=== PATIENT | male | born 1945 | race Caucasian/White ===

== ENCOUNTER 2017-08-14 11:47 | Emergency (ER) | payer MEDICARE, OTHER ==
[2017-08-14 12:06] VITALS: RESP 18
--- NOTE | 2017-08-14 12:18 | ED ---
General Adult HPI - General Chief complaint: Fall Stated complaint: fall down step apx 5 foot Time Seen by Provider: 08/14/17 12:11 Source: patient, RN notes reviewed Mode of arrival: ambulatory Limitations: no limitations - History of Present Illness Initial comments: Patient is a pleasant 72-year-old male presenting to the emergency Department with low back pain. Patient fell down a proximal he 5 steps onto concrete last night. Patient landed on his lower back and buttocks. Patient has discomfort more the lower back however also with the buttocks with sitting. Patient is unclear whether or not he may have struck his head. No loss of consciousness. No nausea or vomiting or confusion or neurological problems. No neck or upper back pain. No chest pain or dyspnea. No abdominal pain. Patient did strike his right thumb however states there is only mild discomfort. - Related Data Home Medications Medication Instructions Recorded Confirmed Atorvastatin [Lipitor] 80 mg PO HS 11/28/14 08/14/17 Enalapril Maleate [Vasotec] 2.5 mg PO DAILY 11/28/14 08/14/17 Multivitamins, Thera [Multivitamin] 1 tab PO DAILY 11/28/14 08/14/17 [place]-3 Fatty Acids/Fish Oil [Fish 1 cap PO DAILY 06/01/15 08/14/17 Oil 1,000 mg Softgel] Albuterol Nebulized [Ventolin 2.5 mg INHALATION RT-Q6H PRN 08/14/17 08/14/17 Nebulized] Aspirin [Adult Low Dose Aspirin EC] 81 mg PO DAILY 08/14/17 08/14/17 Ipratropium Nebulized [Atrovent 0.5 mg INHALATION RT-Q6H PRN 08/14/17 08/14/17 Nebulized] Levothyroxine Sodium [Synthroid] 88 mcg PO DAILY 08/14/17 08/14/17 Previous Rx's Medication Instructions Recorded Acetaminophen-Codeine 300-30mg 2 each PO Q6H PRN #15 tablet 08/14/17 [Tylenol #3] Allergies Allergy/AdvReac Type Severity Reaction Status Date / Time Sulfa (Sulfonamide Allergy Rash/Hives Verified 08/14/17 12:43 Antibiotics) Review of Systems ROS Statement: Those systems with pertinent positive or pertinent negative responses have been documented in the HPI. ROS Other: All systems not noted in ROS Statement are negative. Constitutional: Denies: fever Eyes: Denies: eye pain ENT: Denies: ear pain Respiratory: Denies: cough, dyspnea Cardiovascular: Denies: chest pain Endocrine: Denies: fatigue Gastrointestinal: Denies: abdominal pain Genitourinary: Denies: dysuria Musculoskeletal: Reports: back pain Skin: Denies: rash Neurological: Denies: headache, weakness, numbness, paresthesias, confusion, abnormal gait Past Medical History Past Medical History: Coronary Artery Disease (CAD), Chest Pain / Angina, Hyperlipidemia, Hypertension, Myocardial Infarction ([place]) Additional Past Medical History / Comment(s): throat CA Last Myocardial Infarction Date:: 2001 History of Any Multi-Drug Resistant Organisms: None Reported Past Surgical History: Heart Catheterization With Stent, Orthopedic Surgery Additional Past Surgical History / Comment(s): cyst removal from back Past Anesthesia/Blood Transfusion Reactions: No Reported Reaction Date of Last Stent Placement:: 2001 Past Psychological History: No Psychological Hx Reported Smoking Status: Former smoker Past Alcohol Use History: None Reported Past Drug Use History: None Reported - Past Family History Father Family Medical History: Hypertension General Exam Limitations: no limitations General appearance: alert, in no apparent distress Head exam: Present: atraumatic, normocephalic Eye exam: Present: normal appearance, PERRL, EOMI ENT exam: Present: normal oropharynx Neck exam: Present: normal inspection Respiratory exam: Present: normal lung sounds bilaterally Cardiovascular Exam: Present: regular rate, normal rhythm GI/Abdominal exam: Present: soft. Absent: tenderness Extremities exam: Present: normal inspection, other (No tenderness to the right thumb region. Full range of motion. Good strength against resistance.). Absent: tenderness Back exam: Present: tenderness (Mild tenderness lower lumbar spine and left sacral region.) Neurological exam: Present: alert, CN II-XII intact. Absent: motor sensory deficit Expanded Motor strength exam: RUE: 5, LUE: 5, RLE: 5, LLE: 5 Eye Response: (4) open spontaneously Motor Response: (6) obeys commands Verbal Response: (5) oriented Psychiatric exam: Present: normal affect, normal mood Skin exam: Present: normal color Course Vital Signs 08/14/17 12:02 Temperature 97.1 F L Pulse Rate 91 Respiratory 18 Rate Blood Pressure 145/66 O2 Sat by Pulse 96 Oximetry Medical Decision Making - Medical Decision Making Patient and family updated. - Radiology Data Radiology results: report reviewed (Lumbar computed tomography scan shows stable L2 vertebral body fracture at the anterior superior endplate.) Disposition Clinical Impression: L2 vertebral fracture Disposition: HOME SELF-CARE Condition: Stable Instructions: Thoracolumbar Fracture (ED) Additional Instructions: Bed rest until back brace is on. Prescription written for back brace. Please follow-up tomorrow with Dr. Guo, number provided. Return for weakness, loss of sensation, loss of control of bowel or bladder, worsening symptoms or other concerns. Prescriptions: Acetaminophen-Codeine 300-30mg [Tylenol #3] 2 each PO Q6H PRN #15 tablet PRN Reason: Pain Referrals: Pedro Luis Holbrook MD [Primary Care Provider] - 1-2 days Time of Disposition: 13:29
--- NOTE | 2017-08-14 12:47 | CT ---
EXAMINATION TYPE: CT lumbar spine wo con DATE OF EXAM: 08/14/2017 COMPARISON: NONE HISTORY: Pain Unenhanced CT of the lumbar spine was performed. Bone and soft tissue window settings are submitted as well as coronal and sagittal reconstructions. L1-L2: Fracture of the anterior superior L2 vertebral segment mild in degree with mild comminution no marquise. The middle and posterior columns are intact. Normal disc space height. No disc herniation protr usion or central stenosis. No facet joint arthropathy. No evidence for foraminal encroachment. L2-L3: Normal disc space height. No disc herniation protrusion or central stenosis. No facet joint arthropathy. No evidence for foraminal encroachment. L3-L4: Normal disc space height. No disc herniation protrusion or central stenosis. No facet joint arthropathy. No evidence for foraminal encroachment. L4-L5: Moderate degenerative disc space narrowing. Moderate circumferential disc bulge. Hypertrophic change of the ligamentum flavum and facet joint arthropathy contribute to [id number] central st enosis. L5-S1: Normal disc space height. No disc herniation protrusion or central stenosis. No facet joint arthropathy. No evidence for foraminal encroachment. No paraspinal masses are identified. IMPRESSION: 1. Stable L2 vertebral body fracture at its anterior superior endplate. 2. L4-5 central stenosis.
[2017-08-14] MEDS ORDERED: ACET/COD 300 MG/30 MG STARTER PACK 6 TAB BTL PO STA (13:29)
[2017-08-14 13:41] VITALS: BP 148/70; PULSE 77; TEMP 98
== END 2017-08-14 13:41 | disposition home or self-care (01) ==
LOC: EC 11:47
DX: S32.029A Unspecified fracture of second lumbar vertebra, initial encounter for closed fracture (principal); I25.119 Atherosclerotic heart disease of native coronary artery with unspecified angina pectoris; E78.5 Hyperlipidemia, unspecified; I10 Essential (primary) hypertension; I25.2 Old myocardial infarction; Z85.850 Personal history of malignant neoplasm of thyroid; Z87.891 Personal history of nicotine dependence; Z79.82 Long term (current) use of aspirin; Z79.899 Other long term (current) drug therapy; Z88.2 Allergy status to sulfonamides; W10.9XXA Fall (on) (from) unspecified stairs and steps, initial encounter
CPT/HCPCS: 72131; 99283

== ENCOUNTER 2017-11-17 08:10 | Day surgery (SDC) | payer MEDICARE, OTHER ==
[2017-11-15 13:45] VITALS: BMI 30.1
[~2017-11-17 08:10] MED LIST: LACTATED RINGERS 1,000 ML IV SCH
[2017-11-17] MEDS ORDERED: LIDOCAINE 1% 20 ML VIAL (10MG/ML) FOR IV START INTRADERMA ONE (08:34)
[2017-11-17 08:43] VITALS: RESP 16; TEMP 98.4
[2017-11-17 08:54] LABS: Glucose,Whole Blood 122 mg/dL (75-99)
[2017-11-17] MEDS ORDERED: PROPOFOL 10 MG/ML 20 ML VIAL IV ONE (09:57)
[2017-11-17] MEDS ORDERED: LIDOCAINE 1% INJ 10MG/ML (20 ML MDV) ONE (09:57)
[2017-11-17 10:28] VITALS: PULSE 67
--- NOTE | 2017-11-17 10:28 | P.PCN ---
Date of Procedure: 11/17/17 Procedure(s) Performed: Procedure: Esophagogastroduodenoscopy and biopsy. Preoperative diagnosis: Dysphagia. Postoperative diagnosis: 1. Small sliding hiatal hernia with low-grade esophagitis but no obvious strictures. 2. Mild gastritis and duodenitis. 3. Biopsies obtained from the duodenum, antrum and esophagus. Preparation sedation: Was provided by anesthesia. Brief clinical history: The patient is a 72-year-old male with history of throat cancer for which he was treated with chemotherapy and radiation around 3 years ago. The patient has been complaining of difficulty swallowing since that time with no other alarm symptoms. This evaluation is to assess for strictures or other pathology. Procedure: With the patient on his left lateral decubitus position and after informed consent and adequate sedation, I passed the Olympus GIF H 190 video upper endoscope, without difficulty, through the cricopharyngeus down the esophagus. GE junction was around 40-41 cm from the incisors and there was a small sliding hiatal hernia. The esophagus showed couple short linear erosions distally consistent with LA grade A esophagitis but there were no strictures or Delgadillo's esophagus. The endoscope was then passed into the stomach which was insufflated with air and inspected in detail including the retroflex view in the cardia. There was some mottling and erythema in the antrum but no ulcers or erosions. Similar findings were seen in the duodenal bulb with pinpoint submucosal hemorrhages but no ulcers or erosions. Post bulbar area and descending duodenum appeared healthy. I obtained biopsies from the duodenum, antrum and esophagus then the endoscope was withdrawn. The patient tolerated the procedure well. Plan: The patient was reassured. Will await biopsy results. Consideration can be given for treatment for reflux and monitoring his difficulty swallowing. Additional workup for his dysphagia could include barium studies and motility studies depending on his course, especially if there is nutritional compromise. He will follow up with you as planned and would be happy to see in the office of his symptoms persist.
[2017-11-17 10:44] VITALS: BP 111/58
[2017-11-17 10:46] LABS: Glucose,Whole Blood 131 mg/dL (75-99)
== END 2017-11-17 11:25 | disposition home or self-care (01) ==
LOC: ORWHC2ENDO 08:10
DX: K29.50 Unspecified chronic gastritis without bleeding (principal); K44.9 Diaphragmatic hernia without obstruction or gangrene; K29.80 Duodenitis without bleeding; K20.9 Esophagitis, unspecified; E78.5 Hyperlipidemia, unspecified; I10 Essential (primary) hypertension; J45.909 Unspecified asthma, uncomplicated; E07.9 Disorder of thyroid, unspecified; E11.9 Type 2 diabetes mellitus without complications; Z79.899 Other long term (current) drug therapy; Z92.21 Personal history of antineoplastic chemotherapy; Z79.84 Long term (current) use of oral hypoglycemic drugs; Z79.82 Long term (current) use of aspirin; Z88.2 Allergy status to sulfonamides; Z85.89 Personal history of malignant neoplasm of other organs and systems
CPT/HCPCS: 88305; 43239; J2001; J2704

== ENCOUNTER → 2018-04-06 | Outpatient (CLI) | payer MEDICARE, OTHER ==
--- NOTE | 2018-04-06 08:46 | CT ---
EXAMINATION TYPE: CT chest w con DATE OF EXAM: 04/06/2018 COMPARISON: 12/10/2013 and PET/CT 08/20/2017 HISTORY: 73-year-old male Pneumonia, history of throat cancer TECHNIQUE: Contiguous axial scanning of the chest after the administration of 50 mL of Isovue 300. C oronal/sagittal reconstructions performed. CT DLP: 408.8mGycm. Automatic exposure control utilized for a dose reduction. FINDINGS: Heart normal size without pericardial effusion. Coronary vessel calcifications are present and are re markable for coronary artery disease. Prominent epicardial fat pad along the right heart margin. There is mild to moderate atherosclerotic arch calcifications and conventional arch vessel branching anatomy. Ectatic lower descending thoracic aorta 2.8 cm. Partially calcified 1 cm lower left cervical lymph node is unchanged from the patient's 08/20/2017 PET /CT. Otherwise, no thoracic lymphadenopathy seen. Mild central bronchial wall thickening. No consolidation or pleural effusion. The central airways cheryl ear patent. Tiny hiatal hernia. Multiple cysts in the liver, largest on the left measuring up to 4.9 cm. Superior endplate compression deformity is visualized at L2 which was no also noted on the patient's CT lumbar spine of 08/14/2017. No osseous destructive process. IMPRESSION: 1. Partially calcified 1 cm lower left cervical lymph node is unchanged from the patient's 08/20/2017 PET/CT compatible with site of treated disease. 2. Mild central bronchial wall thickening could represent bronchitis or asthma. No evidence for pneum onia.
== END | disposition home or self-care (01) ==
LOC: RADCTMAIN 06:39
PROVIDERS: ATTEND Internal Medicine Geriatric Medicine
DX: J98.09 Other diseases of bronchus, not elsewhere classified (principal)
CPT/HCPCS: 82565; 84520; 71260; 36415; Q9967

== ENCOUNTER → 2018-09-02 | Outpatient (CLI) | payer MEDICARE, OTHER ==
--- NOTE | 2018-09-03 15:14 | PE ---
EXAMINATION TYPE: PET CT fusion skull to thigh DATE OF EXAM: 09/02/2018 COMPARISON: Prior PET/CT August 20, 2017 and older studies back through December 21, 2014. Most recent c hest CT April 06, 2018 HISTORY: Head and neck throat cancer treated with chemotherapy and radiation in May 2015 TECHNIQUE: Following the intravenous administration of 12.09 mCi of F-18 FDG, whole body images are performed from the skull base to the midthigh. Images are reviewed on the computer in the coronal, a xial, and sagittal planes. Reconstructed rotating images are created on independent workstation and reviewed on the computer. A noncontrast CT is performed in conjunction with the PET scan. Dedicated PET/CT imaging of the neck is acquired. SCAN: Subsequent Scan FINDINGS: SKULL BASE AND NECK: No suspicious hypermetabolic uptake or abnormal enlarged lymph nodes are seen o n current study with particular attention to the left posterior cervical triangle at level of hyoid b one at study of original hypermetabolic adenopathy in 2014. There is stable residual calcified 9 mm m ass at level of left thyroid lobe axial image 70 consistent with treated disease extending from the p rior visualized enlarged hypermetabolic lymph node. There is marked interval improvement in the left greater than right masseter muscular uptake on current study. CHEST, MEDIASTINUM, AND HILAR REGION: No new areas of suspicious hypermetabolic uptake are identified . ABDOMEN AND PELVIS: No suspicious hypermetabolic uptake is seen. Prominent diffuse bowel uptake seen on current study. Normal excretion redemonstrated. OSSEOUS STRUCTURES: No suspicious hypermetabolic uptake is present. OTHER CT: Moderate multilevel degenerative changes are redemonstrated in the thoracolumbar and lumbosacral spin e. There is redemonstration of moderate to severe three-vessel coronary artery calcifications and/or laurence nts and moderate atheromatous changes of the thoracic aorta. Some bilateral gynecomastia is again see n. Stable small hiatal hernia is present. Mild to moderate fat replaced pancreatic atrophy is redemonstr ated. Small duodenal diverticulum is redemonstrated of the duodenal sweep axial image 177. Exophytic low dense left renal lesion measures 4.1 cm from the mid pole emanating into the upper pole . It remains ametabolic. Proteinaceous or hemorrhagic cyst is suspected. Left-sided renal sinus cysts are noted. No significant change from prior. Prostate gland is heterogenous containing central zone calcifications. Moderate calcific atheromatou s changes are seen of the abdominal aorta and its branches. Urinary bladder is not greatly distended. IMPRESSION: No evidence of new hypermetabolic uptake to suggest local or metastatic neoplastic recurr ence.
== END | disposition home or self-care (01) ==
LOC: RADPETMAIN 07:18
PROVIDERS: ATTEND Internal Medicine Hematology & Oncology
DX: C76.0 Malignant neoplasm of head, face and neck (principal)
CPT/HCPCS: 78815; A9552

== ENCOUNTER 2019-08-11 01:29 | Observation (INO) | payer MEDICARE, OTHER ==
[2019-08-11 02:09] LABS: Basophils % (A) 0 %; Eosinophils # (A) 0.2 k/uL (0-0.7); Eosinophils % (A) 1 %; HCT 36.2 % (39.0-53.0); Lymphocytes # (A) 0.5 k/uL (1.0-4.8); Lymphocytes % (A) 4 %; MCH 28.2 pg (25.0-35.0); MCHC 33.1 g/dL (31.0-37.0); MCV 85.3 fL (80.0-100.0); Monocytes # (A) 0.5 k/uL (0-1.0); Monocytes % (A) 5 %; Neutrophils # (A) 10.1 k/uL (1.3-7.7); Neutrophils % (A) 89 %; Platelet Count 138 k/uL (150-450); RBC 4.24 m/uL (4.30-5.90); RDW 14.8 % (11.5-15.5); WBC 11.3 k/uL (3.8-10.6)
--- NOTE | 2019-08-11 02:14 | XR ---
EXAMINATION TYPE: XR chest 2V DATE OF EXAM: 08/11/2019 COMPARISON: 05/22/2015 HISTORY: Chest pain TECHNIQUE: Frontal and lateral views of the chest are obtained. FINDINGS: There is no heart failure nor confluent pneumonic infiltrate. Costophrenic angles are vito r. There is minor spurring in the thoracic spine. There are chest leads. IMPRESSION: No active cardiopulmonary disease. No change.
[2019-08-11 02:18] LABS: Potassium 4.1 mmol/L (3.5-5.1)
[2019-08-11 02:19] LABS: Albumin 4.1 g/dL (3.5-5.0); Calcium 9.8 mg/dL (8.4-10.2); Magnesium 1.6 mg/dL (1.6-2.3); Total Bilirubin 1.1 mg/dL (0.2-1.3); Total Protein 6.8 g/dL (6.3-8.2)
[2019-08-11 02:24] LABS: D-Dimer 0.39 mg/L FEU (<0.60); INR 0.9 (<1.2); Partial Thromboplastin Time 23.6 sec (22.0-30.0); Prothrombin Time 9.6 sec (9.0-12.0)
[2019-08-11] MEDS ORDERED: HYDROcodone/APAP 5-325MG 1 EACH TAB PO STA (04:23)
[2019-08-11] MEDS ORDERED: NITROGLYCERIN SL TABS 0.4 MG TAB SUBLINGUAL PRN (04:58)
[2019-08-11] MEDS ORDERED: ENOXAPARIN 100 MG/ML SYRINGE SQ SCH (05:00)
--- NOTE | 2019-08-11 06:21 | ED ---
Chest Pain HPI - General Chief Complaint: Chest Pain Stated Complaint: Chest Pain Time Seen by Provider: 08/11/19 01:37 Source: patient, family Mode of arrival: ambulatory Limitations: no limitations - History of Present Illness Initial Comments: This patient is a 74-year-old man who presents to be evaluated for bilateral and substernal chest pain. He states that he had a brief episode of this last night about 24 hours ago, and then again in the morning. I states that the symptoms recurred this evening and were not going away. He states that the pain is an aching, and is worse with taking a deep breath. There is also a component that goes up towards his upper chest or neck. He patient denies having anginal type symptoms including no dyspnea diaphoresis, nausea or vomiting, palpitations, lightheadedness or syncope. MD Complaint: chest pain -: hour(s) Onset: during rest Pain Location: left chest, right chest Pain Radiation: neck Severity: severe Quality: aching Consistency: intermittent Improves With: nothing Worsens With: inspiration Treatments Prior to Arrival: none - Related Data Home Medications Medication Instructions Recorded Confirmed Atorvastatin [Lipitor] 80 mg PO HS 11/28/14 08/11/19 Enalapril Maleate [Vasotec] 2.5 mg PO DAILY 11/28/14 08/11/19 Multivitamins, Thera [Multivitamin 1 tab PO DAILY 11/28/14 08/11/19 (formulary)] Aspirin [Adult Low Dose Aspirin EC] 81 mg PO DAILY 08/14/17 08/11/19 Levothyroxine Sodium [Synthroid] 88 mcg PO DAILY 08/14/17 08/11/19 metFORMIN HCL 1,000 mg PO BID 11/15/17 08/11/19 Albuterol Nebulized [Ventolin 2.5 mg INHALATION RT-TID PRN 08/11/19 08/11/19 Nebulized] Cinnamon Bark [Cinnamon] 1,000 mg PO BID 08/11/19 08/11/19 Fluticasone Propionate 110 Mcg 2 puff INHALATION RT-BID PRN 08/11/19 08/11/19 [Flovent 110 Mcg Inhaler (Bulk)] Ibuprofen [Motrin] 800 mg PO Q8H PRN 08/11/19 08/11/19 Ipratropium Nebulized [Atrovent 0.5 mg INHALATION RT-Q6H PRN 08/11/19 08/11/19 Nebulized 0.2 MG/ML] [place]-3 Fatty Acids/Fish Oil [Fish 1 cap PO DAILY 08/11/19 08/11/19 Oil 1,000 mg Softgel] Triamcinolone 0.5% Oint 1 applic TOPICAL DAILY PRN 08/11/19 08/11/19 Previous Rx's Medication Instructions Recorded Levofloxacin [Levaquin] 500 mg PO DAILY 7 Days #3 tab 08/12/19 predniSONE 20 mg PO BID #10 tab 08/12/19 Allergies Allergy/AdvReac Type Severity Reaction Status Date / Time Sulfa (Sulfonamide Allergy Unknown Verified 08/11/19 08:16 Antibiotics) Childhood Review of Systems ROS Statement: Those systems with pertinent positive or pertinent negative responses have been documented in the HPI. ROS Other: All systems not noted in ROS Statement are negative. Constitutional: Denies: fever, chills Respiratory: Denies: cough, dyspnea Cardiovascular: Reports: as per HPI, chest pain. Denies: palpitations, dyspnea on exertion, edema, syncope Gastrointestinal: Denies: abdominal pain, nausea, vomiting, melena, hematochezia Genitourinary: Denies: dysuria, hematuria Musculoskeletal: Denies: back pain Skin: Denies: rash Neurological: Denies: headache, weakness, numbness EKG Findings - EKG Results: EKG: interpreted by ERMD, sinus rhythm (Rate approximately 85 bpm), normal axis, normal ST/T - Blocks, [place], Hypertrophy, ST Abn: AV and intraventricular conduction: right bundle branch block (fixed/intermittent, complete/incomplete) (Incomplete right bundle branch block) Past Medical History Past Medical History: Coronary Artery Disease (CAD), Cancer, Chest Pain / Angina, COPD, Diabetes Mellitus, Hyperlipidemia, Myocardial Infarction ([place]), Musculoskeletal Disorder, Thyroid Disorder Additional Past Medical History / Comment(s): HX OF ESOPHAGEAL CANCER WITH RADIATION [place](2015), TINNITIS., FELL OUT OF ATTIC JUL 2017 AND HAS COMPRESSION FX l-2 (WEARING BACK SUPPORT) ., HAYFEVER ALLERGIES., HAVING DIFFICULTY SWALLOWING SOME FOODS. Stage 4 Throat CA Last Myocardial Infarction Date:: 2001 History of Any Multi-Drug Resistant Organisms: None Reported Past Surgical History: Heart Catheterization With Stent Additional Past Surgical History / Comment(s): cyst removal from back, Toe surgery (child) Past Anesthesia/Blood Transfusion Reactions: No Reported Reaction, Motion Sickness Additional Past Anesthesia/Blood Transfusion Reaction / Comment(s): dizziness when he closes his eyes in the shower. Date of Last Stent Placement:: 2001 Past Psychological History: No Psychological Hx Reported Smoking Status: Former smoker Past Alcohol Use History: Occasional Past Drug Use History: None Reported - Past Family History Father Family Medical History: Hypertension General Exam Limitations: no limitations General appearance: alert, in no apparent distress Head exam: Present: atraumatic, normocephalic Eye exam: Present: normal appearance. Absent: scleral icterus, conjunctival injection ENT exam: Present: normal oropharynx Neck exam: Present: normal inspection Respiratory exam: Present: normal lung sounds bilaterally. Absent: respiratory distress, wheezes, rales, rhonchi, stridor, chest wall tenderness Cardiovascular Exam: Present: regular rate, normal rhythm, normal heart sounds. Absent: systolic murmur, diastolic murmur, rubs, gallop GI/Abdominal exam: Present: soft. Absent: distended, tenderness, guarding, rebound, rigid, mass Extremities exam: Present: normal inspection, normal capillary refill. Absent: pedal edema, calf tenderness Back exam: Present: normal inspection. Absent: CVA tenderness (R), CVA tenderness (L) Neurological exam: Present: alert Skin exam: Present: warm, dry, intact, normal color. Absent: rash Course Vital Signs 08/11/19 08/11/19 08/11/19 01:31 01:48 04:33 Temperature 98.9 F Pulse Rate 96 77 Pulse Rate [ 84 Heavy Equipment Operator/Paver ] Respiratory 18 18 Rate Blood Pressure 138/65 106/88 Blood Pressure [Left Arm Sitting] O2 Sat by Pulse 97 96 Oximetry 08/11/19 08/11/19 04:58 05:39 Temperature 98.4 F Pulse Rate Pulse Rate [ 72 Heavy Equipment Operator/Paver ] Respiratory 18 Rate Blood Pressure Blood Pressure 106/67 [Left Arm Sitting] O2 Sat by Pulse 97 95 Oximetry Disposition Clinical Impression: Chest pain Disposition: ADMITTED IP TO THIS HOSP Condition: Good Is patient prescribed a controlled substance at d/c from ED?: No
[2019-08-11 06:23] VITALS: BMI 31.3
[2019-08-11 06:29] LABS: Glucose,Whole Blood 158 mg/dL (75-99)
[2019-08-11] MEDS ORDERED: IPRATROPIUM 0.5 MG/2.5 ML NEBU INHALATION PRN (09:35)
[2019-08-11] MEDS ORDERED: SODIUM CHLORIDE 0.9% 500 ML 500 ML IV ONE (09:35)
[2019-08-11] MEDS ORDERED: TRIAMCINOLONE ACET 0.5% CREAM 15 GM TUBE TOPICAL PRN (09:35)
[2019-08-11] MEDS ORDERED: ALBUTEROL NEBULIZED 2.5 MG/3 ML INHALATION PRN (09:35)
[2019-08-11] MEDS ORDERED: FLUTICASONE 110 MCG INHALER INHALATION PRN (09:35)
[2019-08-11] MEDS ORDERED: Magnesium Replacement Protocol 1 EACH MISC MISCELLANE PRN (09:36)
[2019-08-11] MEDS: SODIUM CHLORIDE 0.9% 1,000 ML IV SCH ×2 (10:08→20:48)
[2019-08-11] MEDS: ASPIRIN 81 MG PO SCH (10:33)
[2019-08-11] MEDS: MAGNESIUM SULFATE-D5W PMX 1 GM in DEXTROSE/WATER 1 100ML.BAG IVPB SCH ×2 (10:33→13:07)
[2019-08-11 11:49] LABS: Glucose,Whole Blood 225 mg/dL (75-99)
[2019-08-11] MEDS: INSULIN ASPART (NovoLOG) 100 UNIT/ML VIAL SQ SCH ×3 (13:07→20:47)
--- NOTE | 2019-08-11 14:02 | ECHOF ---
Referral Reason:chest pain MEASUREMENTS -------- HEIGHT: 162.6 cm WEIGHT: 101.2 kg BP: RVIDd: 4.0 cm (< 3.3) IVSd: 1.3 cm (0.6 - 1.1) LVIDd: 3.8 cm (3.9 - 5.3) LVPWd: 1.0 cm (0.6 - 1.1) IVSs: 1.4 cm LVIDs: 3.0 cm LVPWs: 1.4 cm LA Diam: 2.8 cm (2.7 - 3.8) Ao Diam: 3.1 cm (2.0 - 3.7) AV Cusp: 1.8 cm (1.5 - 2.6) MV EXCURSION: 25.380 mm (> 18.000) MV EF SLOPE: 174 mm/s (70 - 150) EPSS: 0.4 cm MV E Milo: 0.52 m/s MV DecT: 163 ms MV A Milo: 0.68 m/s MV E/A Ratio: 0.77 RAP: 5.00 mmHg RVSP: 29.19 mmHg FINDINGS -------- Sinus rhythm. This was a techncally difficult study with suboptimal views, , Lumason utilized for enhancement of im ages. The left ventricular size is normal. There is mild concentric left ventricular hypertrophy. Overa ll left ventricular systolic function is normal with, an EF between 55 - 60 %. The diastolic fillin g pattern is normal for the age of the patient 6.27. The right ventricle is moderately enlarged. The left atrial size is normal. The right atrial size is normal. 5.0mg OF Lumason UTLIZED: 2 OR MORE WALL SEGMENTS NOT VISUALIZED. There is mild aortic valve sclerosis. There is no evidence of aortic regurgitation. Mild mitral annular calcification present. Mild mitral regurgitation is present. Mild tricuspid regurgitation present. Right ventricular systolic pressure is normal at < 35 mmHg. There is no evidence of pulmonary hypertension. The pulmonic valve was not well visualized. There is no pulmonic regurgitation present. The aortic root size is normal. There is no pericardial effusion. CONCLUSIONS -------- 1. Sinus rhythm. 2. This was a techncally difficult study with suboptimal views, , Lumason utilized for enhancement of images. 3. The left ventricular size is normal. 4. There is mild concentric left ventricular hypertrophy. 5. Overall left ventricular systolic function is normal with, an EF between 55 - 60 %. 6. The diastolic filling pattern is normal for the age of the patient 6.27 7. The right ventricle is moderately enlarged. 8. The left atrial size is normal. 9. 5.0mg OF Lumason UTLIZED: 2 OR MORE WALL SEGMENTS NOT VISUALIZED. 10. There is mild aortic valve sclerosis. 11. Mild mitral annular calcification present. 12. Mild mitral regurgitation is present. 13. Mild tricuspid regurgitation present. 14. Right ventricular systolic pressure is normal at < 35 mmHg. 15. The pulmonic valve was not well visualized. 16. The aortic root size is normal. 17. There is no pericardial effusion. [employer] WASTE [employer]ANDFILL TECHNICIAN: Sandy Glasgow RDCS
[2019-08-11] MEDS ORDERED: RX INFO: IV CONTRAST WAS GIVEN 1 EACH MISC MISCELLANE PRN (16:06)
--- NOTE | 2019-08-11 16:06 | P.HPIM ---
History of Present Illness H&P Date: 08/11/19 Chief Complaint: Chest pain This is a pleasant 74-year-old gentleman patient of Dr. 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 Blackwell, for which she has completed chemotherapy digitation treatment 5 years ago. No ongoing digitation or recurrence at this time, he also sees Dr. Babin from cardiology,. He has History of diabetes mellitus type 2, CAD, hyperlipidemia, chronic recurrent dysphagia, angina, admitted to the emergency room secondary to chest pain, with pleurisy,. This is substernal, regurgitation to the back, patient's pain is persistent, for the past 24 hours, and was subsided however this has recurred again, without any diaphoresis nausea vomiting palpitations lightheadedness or syncope. Patient has no cough, has dysphagia which is chronic, has dyspnea and exertion, without any shortness of breath resting. Patient was seen in emergency room secondary T he is known history of CAD with this chest pain, and was seen by cardiology during this admission. Emergency room troponins are 0.01 2.012, glucose 158, creatinine 1.48, d-dimer normal at 0.39 wbc count of 11.3, chest x-ray shows no active pulmonary disease, no pneumonic infiltrate, costophrenic angles are clear, minor spurring in the thoracic spine, EKG shows normal sinus rhythm with incomplete right bundle branch block Echocardiogram performed during this admission, as was suboptimal views, with left ventricle size normal EF 55-60%, mild TR and mild MR tract into systolic pressure normal less than 35, no pericardial effusion right ventricle is moderately enlarged mild LVH consults with Dr. Babin cardiology, patient is on sublingual nitro when necessary, Lovenox subcu for prophylaxis Review of Systems Constitutional: Reports as per HPI, Reports anorexia, Reports fatigue, Denies chills, Denies chronic headaches, Denies chronic pain, Denies daytime sleepiness, Denies fever, Denies lethargy, Denies malaise, Denies night sweats, Denies poor appetite, Denies sweats, Denies weakness, Denies weight gain, Denies weight loss Ears, nose, mouth and throat: Reports as per HPI, Denies ant. neck pain, Denies bleeding gums, Denies dental pain, Denies dysphagia, Denies epistaxis, Denies headache, Denies hoarseness, Denies mouth pain, Denies nasal congestion, Denies nasal discharge, Denies neck fullness/pressure, Denies neck lump, Denies nose pain, Denies odynophagia, Denies post-nasal drip, Denies sinus pain, Denies sinus pressure, Denies swelling in mouth, Denies swelling in throat, Denies sore throat, Denies vertigo, Denies voice changes Cardiovascular: Reports as per HPI, Reports chest pain, Reports dyspnea on exertion, Denies claudication, Denies decreased exercise tolerance, Denies edema, Denies high blood pressure, Denies irregular heart beat, Denies leg edema, Denies lightheadedness, Denies orthopnea, Denies palpitations, Denies paroxysmal nocturnal dyspnea, Denies phlebitis, Denies rapid heart beat, Denies shortness of breath, Denies syncope Respiratory: Reports congestion, Denies as per HPI, Denies cough, Denies cough with sputum, Denies dyspnea, Denies excessive sputum, Denies hemoptysis, Denies home oxygen, Denies pain, Denies pain on inspiration, Denies pleurisy, Denies r espiratory infections, Denies sleep apnea, Denies snoring, Denies wheezing Gastrointestinal: Reports as per HPI (this dysphagia and odynophagia) Genitourinary: Reports as per HPI, Denies decreased libido, Denies difficulties fathering child, Denies discharge, Denies dysuria, Denies erectile dysfunction, Denies flank pain, Denies genital pain, Denies genital sores, Denies hematuria, Denies impotence, Denies incontinence, Denies kidney stones, Denies nocturia, Denies polyuria, Denies testicular lump, Denies testicular pain, Denies urinary frequency, Denies urinary hesitancy, Denies urinary retention Musculoskeletal: Reports as per HPI Integumentary: Reports as per HPI Neurological: Reports as per HPI, Denies aphasia, Denies ataxia, Denies balance difficulties, Denies burning pain, Denies change in mentation, Denies change in smell/taste, Denies change in speech, Denies confusion, Denies convulsions, Denies double vision, Denies gait dysfunction, Denies head injury, Denies headaches, Denies hearing difficulties, Denies lack of coordination, Denies loss of vision, Denies memory loss, Denies migraines, Denies motor disturbance, Denies numbness, Denies paralysis, Denies paresthesias, Denies seizures, Denies sensory deficit, Denies spasticity, Denies syncope, Denies tic, Denies tingling, Denies transient paralysis, Denies tremors, Denies vertigo, Denies weakness, Denies visual changes Psychiatric: Reports as per HPI, Denies anhedonia, Denies anxiety, Denies anxiety attacks, Denies change in appetite, Denies change in libido, Denies change in sleep habits, Denies confusion, Denies depression, Denies difficulty concentrating, Denies disorientation, Denies hallucinations, Denies hopelessness, Denies hypersomnia, Denies insomnia, Denies irritability, Denies memory loss, Denies mood swings, Denies paranoia, Denies sadness/tearfulness, Denies sleep disturbances, Denies suicidal ideation Endocrine: Reports as per HPI Hematologic/Lymphatic: Reports as per HPI, Denies easy bleeding, Denies easy bruising, Denies lymphadenopathy, Denies lymphedema, Denies thrombophilia Allergic/Immunologic: Reports as per HPI, Reports allergic rhinitis Past Medical History Past Medical History: Coronary Artery Disease (CAD), Cancer, Chest Pain / Angina, COPD, Diabetes Mellitus, Hyperlipidemia, Myocardial Infarction (ME), Musculoskeletal Disorder, Thyroid Disorder Additional Past Medical History / Comment(s): HX OF ESOPHAGEAL CANCER WITH RADIATION [place](2014), TINNITIS., FELL OUT OF ATTIC JUL 2017 AND HAS COMPRESSION FX l-2 (WEARING BACK SUPPORT) ., HAYFEVER ALLERGIES., HAVING DIFFICULTY SWALLOWING SOME FOODS. Stage 4 Throat CA Last Myocardial Infarction Date:: 2001 History of Any Multi-Drug Resistant Organisms: None Reported Past Surgical History: Heart Catheterization With Stent Additional Past Surgical History / Comment(s): cyst removal from back, Toe surgery (child) Past Anesthesia/Blood Transfusion Reactions: No Reported Reaction, Motion Sickness Additional Past Anesthesia/Blood Transfusion Reaction / Comment(s): dizziness when he closes his eyes in the shower. Date of Last Stent Placement:: 2001 Past Psychological History: No Psychological Hx Reported Smoking Status: Former smoker Past Alcohol Use History: Occasional Past Drug Use History: None Reported - Past Family History Father Family Medical History: Hypertension Medications and Allergies Home Medications Medication Instructions Recorded Confirmed Type Atorvastatin [Lipitor] 80 mg PO HS 11/28/14 08/11/19 History Enalapril Maleate [Vasotec] 2.5 mg PO DAILY 11/28/14 08/11/19 History Multivitamins, Thera [Multivitamin 1 tab PO DAILY 11/28/14 08/11/19 History (formulary)] Aspirin [Adult Low Dose Aspirin EC] 81 mg PO DAILY 08/14/17 08/11/19 History Levothyroxine Sodium [Synthroid] 88 mcg PO DAILY 08/14/17 08/11/19 History metFORMIN HCL 1,000 mg PO BID 11/15/17 08/11/19 History Albuterol Nebulized [Ventolin 2.5 mg INHALATION RT-TID PRN 08/11/19 08/11/19 History Nebulized] Cinnamon Bark [Cinnamon] 1,000 mg PO BID 08/11/19 08/11/19 History Fluticasone Propionate 110 Mcg 2 puff INHALATION RT-BID PRN 08/11/19 08/11/19 History [Flovent 110 Mcg Inhaler (Bulk)] Ibuprofen [Motrin] 800 mg PO Q8H PRN 08/11/19 08/11/19 History Ipratropium Nebulized [Atrovent 0.5 mg INHALATION RT-Q6H PRN 08/11/19 08/11/19 H istory Nebulized 0.2 MG/ML] [place]-3 Fatty Acids/Fish Oil [Fish 1 cap PO DAILY 08/11/19 08/11/19 History Oil 1,000 mg Softgel] Triamcinolone 0.5% Oint 1 applic TOPICAL DAILY PRN 08/11/19 08/11/19 History Levofloxacin [Levaquin] 500 mg PO DAILY 7 Days #3 tab 08/12/19 Rx predniSONE 20 mg PO BID #10 tab 08/12/19 Rx Allergies Allergy/AdvReac Type Severity Reaction Status Date / Time Sulfa (Sulfonamide Allergy Unknown Verified 08/11/19 08:16 Antibiotics) Childhood Physical Exam Vitals: Vital Signs Temp Pulse Pulse Resp BP BP Pulse Ox 08/11/19 11:35 66 16 08/11/19 11:07 66 16 93/54 100 08/11/19 10:37 97/53 08/11/19 08:00 97.5 F L 65 18 79/50 98 08/11/19 05:39 98.4 F 72 18 106/67 95 08/11/19 04:58 97 08/11/19 04:33 77 18 106/88 96 08/11/19 01:48 84 08/11/19 01:31 98.9 F 96 18 138/65 97 Intake and Output 08/10/19 08/11/19 08/11/19 22:59 06:59 14:59 Intake Total 120 Balance 120 Intake: Oral 120 Other: Weight 101.151 kg - Constitutional General appearance: cooperative, no acute distress - EENT Eyes: anicteric sclerae, PERRLA, dentition normal, normal appearance ENT: hearing grossly normal - Neck Neck: normal ROM - Respiratory Respiratory: bilateral: CTA, negative: diminished, dullness, rales - Cardiovascular Rhythm: regular Heart sounds: normal: S1, S2 Abnormal Heart Sounds: no systolic murmur, no diastolic murmur, no rub, no S3 Gallop, no S4 Gallop, no click, no other - Gastrointestinal General gastrointestinal: normal bowel sounds, soft - Integumentary Integumentary: normal, normal turgor - Neurologic Neurologic: CNII-XII intact - Musculoskeletal Musculoskeletal: gait normal - Psychiatric Psychiatric: A&O x's 3, appropriate affect, intact judgment & insight Results CBC & Chem 7: 08/12/19 05:45 08/12/19 05:45 Labs: Abnormal Lab Results - Last 24 Hours (Table) 08/11/19 08/11/19 08/11/19 Range/Units 02:00 02:00 06:27 WBC 11.3 H (3.8-10.6) k/uL RBC 4.24 L (4.30-5.90) m/uL Hgb 12.0 L (13.0-17.5) gm/dL Hct 36.2 L (39.0-53.0) % Plt Count 138 L (150-450) k/uL Neutrophils # 10.1 H (1.3-7.7) k/uL Lymphocytes # 0.5 L (1.0-4.8) k/uL BUN 24 H (9-20) mg/dL Creatinine 1.41 H (0.66-1.25) mg/dL Glucose 200 H (74-99) mg/dL POC Glucose (mg/dL) 158 H (75-99) mg/dL Alkaline Phosphatase 133 H (38-126) U/L 08/11/19 Range/Units 11:48 WBC (3.8-10.6) k/uL RBC (4.30-5.90) m/uL Hgb (13.0-17.5) gm/dL Hct (39.0-53.0) % Plt Count (150-450) k/uL Neutrophils # (1.3-7.7) k/uL Lymphocytes # (1.0-4.8) k/uL BUN (9-20) mg/dL Creatinine (0.66-1.25) mg/dL Glucose (74-99) mg/dL POC Glucose (mg/dL) 225 H (75-99) mg/dL Alkaline Phosphatase (38-126) U/L Laboratory Results WBC 11.3 k/uL (3.8-10.6) H 08/11/19 02:00 RBC 4.24 m/uL (4.30-5.90) L 08/11/19 02:00 Hgb 12.0 gm/dL (13.0-17.5) L 08/11/19 02:00 Hct 36.2 % (39.0-53.0) L 08/11/19 02:00 MCV 85.3 fL (80.0-100.0) 08/11/19 02:00 MCH 28.2 pg (25.0-35.0) 08/11/19 02:00 MCHC 33.1 g/dL (31.0-37.0) 08/11/19 02:00 RDW 14.8 % (11.5-15.5) 08/11/19 02:00 Plt Count 138 k/uL (150-450) L 08/11/19 02:00 Neutrophils % 89 % 08/11/19 02:00 Lymphocytes % 4 % 08/11/19 02:00 Monocytes % 5 % 08/11/19 02:00 Eosinophils % 1 % 08/11/19 02:00 Basophils % 0 % 08/11/19 02:00 Neutrophils # 10.1 k/uL (1.3-7.7) H 08/11/19 02:00 Lymphocytes # 0.5 k/uL (1.0-4.8) L 08/11/19 02:00 Monocytes # 0.5 k/uL (0-1.0) 08/11/19 02:00 Eosinophils # 0.2 k/uL (0-0.7) 08/11/19 02:00 Basophils # 0.0 k/uL (0-0.2) 08/11/19 02:00 PT 9.6 sec (9.0-12.0) 08/11/19 02:00 INR 0.9 (<1.2) 08/11/19 02:00 APTT 23.6 sec (22.0-30.0) 08/11/19 02:00 D-Dimer 0.39 mg/L FEU (<0.60) 08/11/19 02:00 Sodium 137 mmol/L (137-145) 08/11/19 02:00 Potassium 4.1 mmol/L (3.5-5.1) 08/11/19 02:00 Chloride 101 mmol/L (98-107) 08/11/19 02:00 Carbon Dioxide 27 mmol/L (22-30) 08/11/19 02:00 Anion Gap 9 mmol/L 08/11/19 02:00 BUN 24 mg/dL (9-20) H 08/11/19 02:00 Creatinine 1.41 mg/dL (0.66-1.25) H 08/11/19 02:00 Est GFR (CKD-EPI)AfAm 57 (>60 ml/min/1.73 sqM) 08/11/19 02:00 Est GFR (CKD-EPI)NonAf 50 (>60 ml/min/1.73 sqM) 08/11/19 02:00 Glucose 200 mg/dL (74-99) H 08/11/19 02:00 POC Glucose (mg/dL) 225 mg/dL (75-99) H 08/11/19 11:48 POC Glu Rip Tailer BLAYNE Josh Crow 08/11/19 11:48 Calcium 9.8 mg/dL (8.4-10.2) 08/11/19 02:00 Magnesium 1.6 mg/dL (1.6-2.3) 08/11/19 02:00 Total Bilirubin 1.1 mg/dL (0.2-1.3) 08/11/19 02:00 AST 23 U/L (17-59) 08/11/19 02:00 ALT 39 U/L (21-72) 08/11/19 02:00 Alkaline Phosphatase 133 U/L (38-126) H 08/11/19 02:00 Troponin I <0.012 ng/mL (0.000-0.034) 08/11/19 14:03 Total Protein 6.8 g/dL (6.3-8.2) 08/11/19 02:00 Albumin 4.1 g/dL (3.5-5.0) 08/11/19 02:00 Amylase 54 U/L (30-110) 08/11/19 02:00 Lipase 43 U/L (23-300) 08/11/19 02:00 Thrombosis Risk Factor Assmnt - DVT/VTE Prophylaxis DVT/VTE Prophylaxis: Low risk, early ambulation encouraged - Choose All That Apply Each Factor Represents 1 point: Obesity (BMI >25) Other Risk Factors: Yes Each Risk Factor Represents 2 Points: Age 61-74 years Thrombosis Risk Factor Assessment Total Risk Factor Score: 3 Thrombosis Risk Factor Assessment Level: Moderate Risk Assessment and Plan Plan: 1. Pleurisy, with associated chest pain substernal, persistent for the past 24 hours, patient was seen by cardiology and was serially monitored for cardiac biomarkers, troponins are negative, echocardiogram as discussed with mild LVH, normal EF, no pericardial effusion, also accompanied by odynophagia and dysphagia, which is chronic. D-dimer is negative and as such, PE is less likely, we'll going to request for modified barium swallow eval, and CT chest IV contrast to look for metastases related to prior history of head and neck cancer continue on aspirin, Lipitor. Patient is not on beta blockers, ruled out ACS 2. Diabetes mellitus type 2, Accu-Cheks on diet modification only as well as metformin 1 g twice a day, and no changes were made, patient would hold off metformin related to the CAT scan which we are going to request 3. Hypertension on enalapril 2.5 mg daily 4. Hypothyroidism on Synthroid 88 Ernie grams daily 5. Known CAD with prior ME on Lipitor Vasotec and fish oil 6. Hyperlipidemia on Lipitor 7. Dysphagia with odynophagia, known history of stage IV head and neck throat cancer followed by Dr. Blackwell, diagnosed initially in 2014, CT of the chest to be done with IV contrast to look for recurrence, and modified barium swallow p atient might need EGD and possibly GI consultation 8. GI prophylaxis 9. DVT prophylaxis.
[2019-08-11 16:44] LABS: Glucose,Whole Blood 195 mg/dL (75-99)
--- NOTE | 2019-08-11 17:39 | CT ---
EXAMINATION TYPE: CT chest w con DATE OF EXAM: 08/11/2019 COMPARISON: 09/02/2018, 04/06/2018 HISTORY: 74-year-old male head and neck cancer, Chest pain upon inspiration. History of esophageal ca ncer. TECHNIQUE: Contiguous axial scanning of the chest after the administration of 80ml mL of Isovue 300. Coronal/sagittal reconstructions performed. CT DLP: 467.3mGycm. Automatic exposure control utilized for a dose reduction. FINDINGS: Heart normal size with small pericardial effusion measuring 8 mm thick. Three-vessel coronary artery calcifications are present. Aorta normal caliber with mild to moderate atherosclerotic arch calcifications and conventional [facility] anatomy. Scattered nonenlarged mediastinal lymph nodes measuring up to 7 mm. No thoracic lymphadenopathy by CT size criteria. Some nodular dependent debris along the posterior mid to distal trachea. Mild diffuse bronchial wall thickening. New extensive patchy and confluent groundglass within the left lower lobe and to a lesser extent with in the right lower lobe. No pleural effusion. Tiny hiatal hernia. Visualized upper abdomen shows left renal cysts measuring up to 5.3 cm, stable ti ny 7 mm nodularity left adrenal gland. Bones: [facility] within the mid to lower thoracic spine. IMPRESSION: 1. CAD. 2. New small pleural effusion measuring 8 mm thick. 3. New patchy and confluent groundglass within the left lower lobe and to a lesser extent within the right lower lobe. Correlate for infectious or aspiration pneumonitis. 4. No suspicious lymphadenopathy or mass is identified within the thorax. 5. Tiny hiatal hernia.
--- NOTE | 2019-08-11 18:23 | CONS ---
CONSULTATION Mr. Prajapati is a 74-year-old male with known history of coronary artery disease status post percutaneous revascularization of his proximal LAD in 2005, history of hypertension, hyperlipidemia, diabetes mellitus, who presented to the hospital with symptoms of chest discomfort. The discomfort is substernal, worse with deep breathing and in certain positions, going on for the last 2 days. He has no significant fever, mild cough and no wheezing. The discomfort is not exertional in pattern. He denies any PND, orthopnea, or peripheral edema. No syncope. His last myocardial perfusion imaging was done in May 2017 that revealed a fixed inferoapical defect and he had an ejection fraction of 52%. The patient's activity has been stable. He was up [facility] recently without any discomfort. His coronary risk factors are remarkable for hypertension, hyperlipidemia, diabetes mellitus, and a history of peripheral vascular disease. MEDICATION: Medications at home include: Metformin 1 gram twice a day, Synthroid, Motrin on a p.r.n. basis, Vasotec 2.5 mg daily, Lipitor 80 mg daily and aspirin. REVIEW OF SYSTEMS: Respiratory system: He has no recent cough or wheezing. No history of documented obstructive lung disease. GI system: No recent GI bleeding. No peptic ulcer disease. Genitourinary system: No dysuria or hematuria. Nervous system: No stroke or seizure. PHYSICAL EXAMINATION: His blood pressure has been running in the low 100s, earlier it was 79 with a heart rate in the 60s. LUNGS: Clear. HEAD: Normocephalic. Eyes sclerae anicteric. NECK: Good carotid upstroke. No bruit. No jugular venous distention. LUNGS: Clear to auscultation. HEART: Regular rate and rhythm S1, S2. No S3 with no murmur. ABDOMEN: Soft, nontender. Positive bowel sounds. No organomegaly. EXTREMITIES: No edema. Chest wall with no chest wall tenderness. LAB DATA: Revealed troponin less than 0.012, BUN and creatinine 24 and 1.41, which is better than before. Potassium 4.1, hemoglobin of 12. EKG revealed a sinus mechanism with incomplete right bundle branch block. No acute ST- segment changes. Chest x-ray shows no acute infiltrate. IMPRESSION: 1. Chest discomfort atypical for ischemic heart disease, appears to be respirophasic in pattern. 2. History of coronary artery disease with no evidence of recurrent angina pectoris. 3. Episode of hypotension. 4. History of hyperlipidemia. 5. Diabetes. 6. Chronic kidney disease. RECOMMENDATIONS AND DISCUSSION: From the cardiac standpoint, the patient had an echocardiogram and I will review those results. We will continue the rest of his medical regimen. I will cut down the dose of his Lovenox. Increase his level of activity. Patient will receive IV fluids. Depending on his progress, further recommendations will be made. His LORNA inhibitor will be held because of his blood pressure. Thank you for this consult. We will follow with you. MEGAN / IJN: [id number] /
[2019-08-11 20:18] LABS: Glucose,Whole Blood 213 mg/dL (75-99)
[2019-08-11] MEDS ORDERED: ATORVASTATIN 80 MG TAB PO SCH (21:00)
[2019-08-12 06:23] LABS: Glucose,Whole Blood 129 mg/dL (75-99)
[2019-08-12] MEDS ORDERED: LEVOTHYROXINE 88 MCG TAB PO SCH (06:30)
[2019-08-12 06:31] LABS: Basophils % (A) 0 %; Eosinophils # (A) 0.1 k/uL (0-0.7); Eosinophils % (A) 1 %; HCT 32.7 % (39.0-53.0); HGB 10.7 gm/dL (13.0-17.5); Lymphocytes # (A) 0.7 k/uL (1.0-4.8); Lymphocytes % (A) 9 %; MCH 28.1 pg (25.0-35.0); MCHC 32.8 g/dL (31.0-37.0); MCV 85.7 fL (80.0-100.0); Mean Platelet Volume 6.8; Monocytes # (A) 0.5 k/uL (0-1.0); Monocytes % (A) 7 %; Neutrophils # (A) 5.9 k/uL (1.3-7.7); Neutrophils % (A) 82 %; Platelet Count 115 k/uL (150-450); RBC 3.82 m/uL (4.30-5.90); RDW 14.7 % (11.5-15.5); WBC 7.2 k/uL (3.8-10.6)
[2019-08-12] MEDS: INSULIN ASPART (NovoLOG) 100 UNIT/ML VIAL SQ SCH ×2 (06:31→12:32)
[2019-08-12] MEDS: SODIUM CHLORIDE 0.9% 1,000 ML IV SCH ×2 (06:31→13:05)
[2019-08-12 06:44] LABS: Albumin 3.5 g/dL (3.5-5.0); Calcium 9.2 mg/dL (8.4-10.2); Magnesium 2.1 mg/dL (1.6-2.3); Potassium 4.1 mmol/L (3.5-5.1); Total Bilirubin 1.6 mg/dL (0.2-1.3); Total Protein 6.2 g/dL (6.3-8.2)
[2019-08-12] MEDS: ASPIRIN 81 MG PO SCH (07:37)
[2019-08-12] MEDS ORDERED: ASPIRIN 325 MG TAB PO SCH (09:00)
[2019-08-12] MEDS ORDERED: MULTIVITAMINS, THERA 1 EACH TAB PO SCH (09:00)
[2019-08-12 09:41] VITALS: RESP 18
--- NOTE | 2019-08-12 10:46 | PN ---
PROGRESS NOTE Mr. Prajapati is a 74-year-old male with a known history of coronary artery disease who presented with symptoms of chest discomfort. The discomfort was worse with taking deep breaths unrelated to physical activity. He continues to have some discomfort, although not as severe. He has no change in his breathing pattern. He denies any dizziness or palpitation. He continues to be at this time on aspirin once a day, Lipitor 80 mg daily, fluticasone, levothyroxine. PHYSICAL EXAMINATION: Blood pressure 112/60 with a heart rate in the 70s. LUNGS: Clear. HEART: Regular rate and rhythm, S1, S2. No S3. No rub appreciated. ABDOMEN: Soft, nontender. EXTREMITIES: No edema. LAB DATA: Lab data revealed BUN and creatinine 25 and 1.7, which has worsened compared to yesterday. Hemoglobin of 10.7. Cholesterol 113, LDL of 49. He had an echocardiogram done yesterday that revealed no evidence of segment wall motion abnormality with mild mitral and tricuspid regurgitation. He had a stress CT that showed left lower lobe confluent ground-glass infiltrate. IMPRESSION: 1. Chest discomfort, respirophasic, atypical for ischemic heart disease. 2. History of coronary artery disease, stable. 3. Worsening renal function. 4. Hyperlipidemia. 5. Diabetes. RECOMMENDATIONS: I will continue to hold his LORNA inhibitor. Follow his renal function. His CT scan report will be evaluated by Dr. Singh. From the cardiac standpoint, no further workup will be needed at this point. MMODL / IJN: [id number] /
[2019-08-12 11:47] VITALS: BP 120/70; PULSE 71; TEMP 97.8
[2019-08-12 11:58] LABS: Glucose,Whole Blood 123 mg/dL (75-99)
[2019-08-13 13:06] LABS: Hemoglobin A1C 6.9 % (4.0-6.0)
--- NOTE | 2019-08-21 20:25 | P.DS ---
Providers Date of admission: 08/11/19 05:03 Expected date of discharge: 08/12/19 Attending physician: Laureen Singh Consults: 08/11/19 04:58 Consult Physician Routine Consulting Provider: Jose Raul Lewis Consult Reason/Comments: chest pain Do you want consulting provider notified?: Yes Primary care physician: [facility] Course: This is a pleasant 74-year-old gentleman patient of Dr. 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 Blackwell, for which she has completed chemotherapy digitation treatment 5 years ago. No ongoing digitation or recurrence at this time, he also sees Dr. Babin from cardiology,. He has History of diabetes mellitus type 2, CAD, hyperlipidemia, chronic recurrent dysphagia, angina, admitted to the emergency room secondary to chest pain, with pleurisy,. This is substernal, regurgitation to the back, patient's pain is persistent, for the past 24 hours, and was subsided however this has recurred again, without any diaphoresis nausea vomiting palpitations lightheadedness or syncope. Patient has no cough, has dysphagia which is chronic, has dyspnea and exertion, without any shortness of breath resting. Patient was seen in emergency room secondary T he is known history of CAD with this chest pain, and was seen by cardiology during this admission. Emergency room troponins are 0.01 2.012, glucose 158, creatinine 1.48, d-dimer normal at 0.39 wbc count of 11.3, chest x-ray shows no active pulmonary disease, no pneumonic infiltrate, costophrenic angles are clear, minor spurring in the thoracic spine, EKG shows normal sinus rhythm with incomplete right bundle branch block Echocardiogram performed during this admission, as was suboptimal views, with left ventricle size normal EF 55-60%, mild TR and mild MR tract into systolic pressure normal less than 35, no pericardial effusion right ventricle is moderately enlarged mild LVH consults with Dr. Babin cardiology, patient is on sublingual nitro when necessary, Lovenox subcu for prophylaxis\ 08/12, pateint with cough and still iwth inspiratory pain, left side, ct scan showed new patch of ground glass opacification suspicious of infectious or aspiration pneumonitis, patient wnting to be discharged today with po antibiotic and short taper of prednisone, he is to followup with Dr Holbrook for poss swallow eval and ct scan in 4 wks for resolution of findings, Assessment: Assessment and Plan Plan: 1. Pleurisy with aspiration pneumonitis on CT, small pleural effusion, with associated chest pain substernal, persistent patient was seen by cardiology and was serially monitored for cardiac biomarkers, troponins are negative, echocardiogram as discussed with mild LVH, normal EF, no pericardial effusion, also accompanied by odynophagia and dysphagia, which is chronic. D-dimer is negative and as such, PE is less likely, we'll going to request for modified barium swallow eval, and CT chest IV contrast to look for metastases related to prior history of head and neck cancer which was negative continue on aspirin, Lipitor. Patient is not on beta blockers, ruled out ACS 2. Diabetes mellitus type 2, Accu-Cheks on diet modification only as well as metformin 1 g twice a day, and no changes were made, patient would hold off metformin related to the CAT scan 3. Hypertension on enalapril 2.5 mg daily 4. Hypothyroidism on Synthroid 88 Ernie grams daily 5. Known CAD with prior MA on Lipitor Vasotec and fish oil 6. Hyperlipidemia on Lipitor 7. Dysphagia with odynophagia, known history of stage IV head and neck throat cancer followed by Dr. Blackwell, diagnosed initially in 2014, CT of the chest to be done with IV contrast to look for recurrence, and modified barium swallow patient might need EGD and possibly GI consultation as outpatient 8. GI prophylaxis 9. DVT prophylaxis. Patient Condition at Discharge: Good Plan - Discharge Summary Discharge Rx Participant: No New Discharge Prescriptions: New Levofloxacin [Levaquin] 500 mg PO DAILY 7 Days #3 tab predniSONE 20 mg PO BID #10 tab Continue Enalapril Maleate [Vasotec] 2.5 mg PO DAILY Multivitamins, Thera [Multivitamin (formulary)] 1 tab PO DAILY Atorvastatin [Lipitor] 80 mg PO HS Levothyroxine Sodium [Synthroid] 88 mcg PO DAILY Aspirin [Adult Low Dose Aspirin EC] 81 mg PO DAILY metFORMIN HCL 1,000 mg PO BID Ipratropium Nebulized [Atrovent Nebulized 0.2 MG/ML] 0.5 mg INHALATION RT-Q6H PRN PRN Reason: Shortness Of Breath Albuterol Nebulized [Ventolin Nebulized] 2.5 mg INHALATION RT-TID PRN PRN Reason: Shortness Of Breath [place]-3 Fatty Acids/Fish Oil [Fish Oil 1,000 mg Softgel] 1 cap PO DAILY Cinnamon Bark [Cinnamon] 1,000 mg PO BID Ibuprofen [Motrin] 800 mg PO Q8H PRN PRN Reason: Pain Fluticasone Propionate 110 Mcg [Flovent 110 Mcg Inhaler (Bulk)] 2 puff INHALATION RT-BID PRN PRN Reason: Shortness Of Breath Triamcinolone 0.5% Oint 1 applic TOPICAL DAILY PRN PRN Reason: Rash Discharge Medication List Atorvastatin [Lipitor] 80 mg PO HS 11/28/14 [History] Enalapril Maleate [Vasotec] 2.5 mg PO DAILY 11/28/14 [History] Multivitamins, Thera [Multivitamin (formulary)] 1 tab PO DAILY 11/28/14 [History] Aspirin [Adult Low Dose Aspirin EC] 81 mg PO DAILY 08/14/17 [History] Levothyroxine Sodium [Synthroid] 88 mcg PO DAILY 08/14/17 [History] metFORMIN HCL 1,000 mg PO BID 11/15/17 [History] Albuterol Nebulized [Ventolin Nebulized] 2.5 mg INHALATION RT-TID PRN 08/11/19 [History] Cinnamon Bark [Cinnamon] 1,000 mg PO BID 08/11/19 [History] Fluticasone Propionate 110 Mcg [Flovent 110 Mcg Inhaler (Bulk)] 2 puff INHALATION RT-BID PRN 08/11/19 [History] Ibuprofen [Motrin] 800 mg PO Q8H PRN 08/11/19 [History] Ipratropium Nebulized [Atrovent Nebulized 0.2 MG/ML] 0.5 mg INHALATION RT-Q6H PRN 08/11/19 [History] [place]-3 Fatty Acids/Fish Oil [Fish Oil 1,000 mg Softgel] 1 cap PO DAILY 08/11/19 [History] Triamcinolone 0.5% Oint 1 applic TOPICAL DAILY PRN 08/11/19 [History] Levofloxacin [Levaquin] 500 mg PO DAILY 7 Days #3 tab 08/12/19 [Rx] predniSONE 20 mg PO BID #10 tab 08/12/19 [Rx] Follow up Appointment(s)/Referral(s): Pedro Luis Holbrook MD [Primary Care Provider] - 1 Week (Office is closed - patient to call & schedule follow up appointment. ) Patient Instructions/Handouts: Pleurisy (DC) Discharge Disposition: HOME SELF-CARE
== END 2019-08-12 14:37 | disposition home or self-care (01) ==
LOC: EC 01:29 → 3SCARD 05:03
PROVIDERS: ADMIT Family Medicine; ATTEND Family Medicine
DX: J69.0 Pneumonitis due to inhalation of food and vomit (principal); J90 Pleural effusion, not elsewhere classified; I25.10 Atherosclerotic heart disease of native coronary artery without angina pectoris; I08.1 Rheumatic disorders of both mitral and tricuspid valves; I12.9 Hypertensive chronic kidney disease with stage 1 through stage 4 chronic kidney disease, or unspecified chronic kidney disease; E11.22 Type 2 diabetes mellitus with diabetic chronic kidney disease; N18.9 Chronic kidney disease, unspecified; E03.9 Hypothyroidism, unspecified; Z92.21 Personal history of antineoplastic chemotherapy; I25.2 Old myocardial infarction; E78.5 Hyperlipidemia, unspecified; R13.10 Dysphagia, unspecified; I45.19 Other right bundle-branch block; J44.9 Chronic obstructive pulmonary disease, unspecified; H93.19 Tinnitus, unspecified ear; J30.1 Allergic rhinitis due to pollen; I73.9 Peripheral vascular disease, unspecified; E66.9 Obesity, unspecified; Z68.31 Body mass index [BMI] 31.0-31.9, adult; Z79.899 Other long term (current) drug therapy; Z79.82 Long term (current) use of aspirin; Z79.890 Hormone replacement therapy; Z79.84 Long term (current) use of oral hypoglycemic drugs; Z88.2 Allergy status to sulfonamides; Z85.01 Personal history of malignant neoplasm of esophagus; Z92.3 Personal history of irradiation; Z87.39 Personal history of other diseases of the musculoskeletal system and connective tissue; Z87.81 Personal history of (healed) traumatic fracture; Z95.5 Presence of coronary angioplasty implant and graft; Z98.890 Other specified postprocedural states; Z87.898 Personal history of other specified conditions; Z87.891 Personal history of nicotine dependence; Z82.49 Family history of ischemic heart disease and other diseases of the circulatory system
CPT/HCPCS: 96361 ×2; 96365; 96366; 96372; 93005 ×2; 99285; 36415; 85379; 80061; 80053 ×2; 82150; 83690; 83735 ×2; 84484; 85025 ×2; 85610; 85730; 83036; 71046; 71260; G0378 ×2; C8929; J1650; J3475; Q9950; Q9967; 93306

== ENCOUNTER → 2019-10-06 | Outpatient (CLI) | payer MEDICARE ==
--- NOTE | 2019-10-07 15:13 | PE ---
Nuclear medicine PET/CT HISTORY: Head and neck carcinoma, subsequent Patient received 12.5 mCi F-18 FDG intravenously in delayed scanning was performed from the skull bas e to the mid thighs. Localization and attenuation correction CT scan was performed. Correlation to prior nuclear medicine PET/CT 09/02/2018 Head and neck: No suspicious uptake. There is no evident cervical or supraclavicular adenopathy. CHEST: There is no evident lung mass. No evident pleural effusion. No mediastinal, axillary, or hilar adenopathy. There are coronary artery calcifications. There is a hiatal hernia present. ABDOMEN: No evident adrenal or liver mass. No ascites or retroperitoneal adenopathy. No suspicious hy permetabolic uptake. Bowel uptake is likely physiologic. Foci within the left kidney shows stable cheryl earance. Aorta is densely calcified. Osseous structures are stable. No suspicious uptake IMPRESSION: Stable exam. No evident recurrence.
== END | disposition home or self-care (01) ==
LOC: RADPETMAIN 09:24
PROVIDERS: ATTEND Internal Medicine Hematology & Oncology
DX: Z51.11 Encounter for antineoplastic chemotherapy (principal); Z51.0 Encounter for antineoplastic radiation therapy; C76.0 Malignant neoplasm of head, face and neck
CPT/HCPCS: 78815; A9552

== ENCOUNTER 2019-11-09 20:13 | Observation (INO) | payer MEDICARE ==
[2019-11-09] MEDS ORDERED: SODIUM CHLORIDE 0.9% 1,000 ML IV STA ×2 (20:55)
[2019-11-09] MEDS ORDERED: IPRATROPIUM-ALBUTEROL 3 ML NEB INHALATION STA (20:55)
--- NOTE | 2019-11-09 20:55 | ED ---
SOB HPI - General Chief Complaint: Shortness of Breath Stated Complaint: Cough,Hyperglycemic Time Seen by Provider: 11/09/19 20:34 Source: patient, RN notes reviewed, old records reviewed Mode of arrival: EMS Limitations: no limitations - History of Present Illness Initial Comments: This is a 74-year-old male DF multiple complaints including shortness of breath weakness fevers and cough. Patient states she is not follow-up for a day or so. Fever and weakness and dehydration, decreased appetite started today no known sick contacts recent hospitalizations. Patient has body aches and pains now of some mild swelling increased cough and congestion feels it prior episodes of pneumonia the patient has had MD Complaint: shortness of breath, cough, chest pain, pain with inspiration -: days(s) Radiation: back Severity: moderate Severity scale (1-10): 7 Quality: aching Consistency: constant Improves With: nothing Worsens With: exertion Known History Of: COPD, congestive heart failure Context: recent URI Associated Symptoms: chest pain - Related Data Home Medications Medication Instructions Recorded Confirmed Atorvastatin [Lipitor] 80 mg PO HS 11/28/14 08/11/19 Enalapril Maleate [Vasotec] 2.5 mg PO DAILY 11/28/14 08/11/19 Multivitamins, Thera [Multivitamin 1 tab PO DAILY 11/28/14 08/11/19 (formulary)] Aspirin [Adult Low Dose Aspirin EC] 81 mg PO DAILY 08/14/17 08/11/19 Levothyroxine Sodium [Synthroid] 88 mcg PO DAILY 08/14/17 08/11/19 metFORMIN HCL 1,000 mg PO BID 11/15/17 08/11/19 Albuterol Nebulized [Ventolin 2.5 mg INHALATION RT-TID PRN 08/11/19 08/11/19 Nebulized] Cinnamon Bark [Cinnamon] 1,000 mg PO BID 08/11/19 08/11/19 Fluticasone Propionate 110 Mcg 2 puff INHALATION RT-BID PRN 08/11/19 08/11/19 [Flovent 110 Mcg Inhaler (Bulk)] Ibuprofen [Motrin] 800 mg PO Q8H PRN 08/11/19 08/11/19 Ipratropium Nebulized [Atrovent 0.5 mg INHALATION RT-Q6H PRN 08/11/19 08/11/19 Nebulized 0.2 MG/ML] [place]-3 Fatty Acids/Fish Oil [Fish 1 cap PO DAILY 08/11/19 08/11/19 Oil 1,000 mg Softgel] Triamcinolone 0.5% Oint 1 applic TOPICAL DAILY PRN 08/11/19 08/11/19 Previous Rx's Medication Instructions Recorded Levofloxacin [Levaquin] 500 mg PO DAILY 7 Days #3 tab 08/12/19 predniSONE [Deltasone] 20 mg PO BID #10 tab 08/12/19 Allergies Allergy/AdvReac Type Severity Reaction Status Date / Time Sulfa (Sulfonamide Allergy Unknown Verified 08/11/19 08:16 Antibiotics) Childhood Review of Systems ROS Statement: Those systems with pertinent positive or pertinent negative responses have been documented in the HPI. ROS Other: All systems not noted in ROS Statement are negative. Past Medical History Past Medical History: Coronary Artery Disease (CAD), Cancer, Chest Pain / Angina, COPD, Diabetes Mellitus, Hyperlipidemia, Myocardial Infarction ([place]), Musculoskeletal Disorder, Thyroid Disorder Additional Past Medical History / Comment(s): HX OF ESOPHAGEAL CANCER WITH RADIATION [place](2014), TINNITIS., FELL OUT OF ATTIC JUL 2017 AND HAS COMPRESSION FX l-2 (WEARING BACK SUPPORT) ., HAYFEVER ALLERGIES., HAVING DIFFICULTY SWALLOWING SOME FOODS. Stage 4 Throat CA Last Myocardial Infarction Date:: 2001 History of Any Multi-Drug Resistant Organisms: None Reported Past Surgical History: Heart Catheterization With Stent Additional Past Surgical History / Comment(s): cyst removal from back, Toe surgery (child) Past Anesthesia/Blood Transfusion Reactions: No Reported Reaction, Motion Sickness Additional Past Anesthesia/Blood Transfusion Reaction / Comment(s): dizziness when he closes his eyes in the shower. Date of Last Stent Placement:: 2001 Past Psychological History: No Psychological Hx Reported Smoking Status: Former smoker Past Alcohol Use History: Occasional Past Drug Use History: None Reported - Past Family History Father Family Medical History: Hypertension General Exam Limitations: no limitations General appearance: alert, in no apparent distress, anxious Head exam: Present: atraumatic, normocephalic, normal inspection Eye exam: Present: normal appearance, PERRL, EOMI. Absent: scleral icterus, conjunctival injection, periorbital swelling ENT exam: Present: normal exam, mucous membranes dry Neck exam: Present: normal inspection. Absent: tenderness, meningismus, lymphadenopathy Respiratory exam: Present: wheezes, rhonchi, accessory muscle use, decreased breath sounds, prolonged expiratory. Absent: respiratory distress, rales, stridor Cardiovascular Exam: Present: normal rhythm, tachycardia, normal heart sounds. Absent: systolic murmur, diastolic murmur, rubs, gallop, clicks GI/Abdominal exam: Present: soft, normal bowel sounds. Absent: distended, tenderness, guarding, rebound, rigid Extremities exam: Present: normal inspection, full ROM, normal capillary refill. Absent: tenderness, pedal edema, joint swelling, calf tenderness Back exam: Present: normal inspection Neurological exam: Present: alert, oriented X3, CN II-XII intact Psychiatric exam: Present: normal affect, normal mood Skin exam: Present: warm, dry, intact, normal color. Absent: rash Course Vital Signs 11/09/19 11/09/19 11/09/19 20:31 21:43 21:56 Temperature 100.8 F H 100.8 F H Pulse Rate 105 H 99 95 Respiratory 20 18 16 Rate Blood Pressure 117/70 126/69 O2 Sat by Pulse 89 L 96 Oximetry 11/09/19 22:08 Temperature Pulse Rate 108 H Respiratory 18 Rate Blood Pressure O2 Sat by Pulse Oximetry - Reevaluation(s) Reevaluation #1: 11/09/19 23:29 Medical records reviewed Reevaluation #2: 11/09/19 23:29 Patient's fevers improved, still severely short of breath despite breathing treatment - Consultations Consultation #1: Spoke with Dr Zapata was agreeable for admission Medical Decision Making - Medical Decision Making 74 male to the ED co SOB, cough, weakness, fever positive for flu w copd ex acerbation. - Lab Data Result diagrams: 11/09/19 20:15 11/09/19 20:15 Lab Results 11/09/19 11/09/19 11/09/19 Range/Units 20:15 20:15 20:15 WBC 7.6 (3.8-10.6) k/uL RBC 4.03 L (4.30-5.90) m/uL Hgb 11.0 L (13.0-17.5) gm/dL Hct 34.4 L (39.0-53.0) % MCV 85.4 (80.0-100.0) fL MCH 27.2 (25.0-35.0) pg MCHC 31.8 (31.0-37.0) g/dL RDW 14.9 (11.5-15.5) % Plt Count 106 L (150-450) k/uL Neutrophils % 81 % Lymphocytes % 12 % Monocytes % 5 % Eosinophils % 0 % Basophils % 0 % Neutrophils # 6.1 (1.3-7.7) k/uL Lymphocytes # 0.9 L (1.0-4.8) k/uL Monocytes # 0.4 (0-1.0) k/uL Eosinophils # 0.0 (0-0.7) k/uL Basophils # 0.0 (0-0.2) k/uL PT (9.0-12.0) sec INR (<1.2) APTT (22.0-30.0) sec Sodium 139 (137-145) mmol/L Potassium 4.2 (3.5-5.1) mmol/L Chloride 99 (98-107) mmol/L Carbon Dioxide 29 (22-30) mmol/L Anion Gap 11 mmol/L BUN 25 H (9-20) mg/dL Creatinine 1.78 H (0.66-1.25) mg/dL Est GFR (CKD-EPI)AfAm 43 (>60 ml/min/1.73 sqM) Est GFR (CKD-EPI)NonAf 37 (>60 ml/min/1.73 sqM) Glucose 215 H (74-99) mg/dL Plasma Lactic Acid Don 1.7 (0.7-2.0) mmol/L Calcium 9.1 (8.4-10.2) mg/dL Magnesium 1.8 (1.6-2.3) mg/dL Total Bilirubin 1.1 (0.2-1.3) mg/dL AST 36 (17-59) U/L ALT 30 (4-49) U/L Alkaline Phosphatase 111 (38-126) U/L Troponin I (0.000-0.034) ng/mL NT-Pro-B Natriuret Pep pg/mL Total Protein 6.5 (6.3-8.2) g/dL Albumin 3.9 (3.5-5.0) g/dL Influenza Type A RNA (Not Detectd) Influenza Type B (PCR) (Not Detectd) 11/09/19 11/09/19 11/09/19 Range/Units 20:15 20:15 20:15 WBC (3.8-10.6) k/uL RBC (4.30-5.90) m/uL Hgb (13.0-17.5) gm/dL Hct (39.0-53.0) % MCV (80.0-100.0) fL MCH (25.0-35.0) pg MCHC (31.0-37.0) g/dL RDW (11.5-15.5) % Plt Count (150-450) k/uL Neutrophils % % Lymphocytes % % Monocytes % % Eosinophils % % Basophils % % Neutrophils # (1.3-7.7) k/uL Lymphocytes # (1.0-4.8) k/uL Monocytes # (0-1.0) k/uL Eosinophils # (0-0.7) k/uL Basophils # (0-0.2) k/uL PT 10.1 (9.0-12.0) sec INR 1.0 (<1.2) APTT 24.5 (22.0-30.0) sec Sodium (137-145) mmol/L Potassium (3.5-5.1) mmol/L Chloride (98-107) mmol/L Carbon Dioxide (22-30) mmol/L Anion Gap mmol/L BUN (9-20) mg/dL Creatinine (0.66-1.25) mg/dL Est GFR (CKD-EPI)AfAm (>60 ml/min/1.73 sqM) Est GFR (CKD-EPI)NonAf (>60 ml/min/1.73 sqM) Glucose (74-99) mg/dL Plasma Lactic Acid Don (0.7-2.0) mmol/L Calcium (8.4-10.2) mg/dL Magnesium (1.6-2.3) mg/dL Total Bilirubin (0.2-1.3) mg/dL AST (17-59) U/L ALT (4-49) U/L Alkaline Phosphatase (38-126) U/L Troponin I 0.019 (0.000-0.034) ng/mL NT-Pro-B Natriuret Pep 691 pg/mL Total Protein (6.3-8.2) g/dL Albumin (3.5-5.0) g/dL Influenza Type A RNA (Not Detectd) Influenza Type B (PCR) (Not Detectd) 11/09/19 Range/Units 20:15 WBC (3.8-10.6) k/uL RBC (4.30-5.90) m/uL Hgb (13.0-17.5) gm/dL Hct (39.0-53.0) % MCV (80.0-100.0) fL MCH (25.0-35.0) pg MCHC (31.0-37.0) g/dL RDW (11.5-15.5) % Plt Count (150-450) k/uL Neutrophils % % Lymphocytes % % Monocytes % % Eosinophils % % Basophils % % Neutrophils # (1.3-7.7) k/uL Lymphocytes # (1.0-4.8) k/uL Monocytes # (0-1.0) k/uL Eosinophils # (0-0.7) k/uL Basophils # (0-0.2) k/uL PT (9.0-12.0) sec INR (<1.2) APTT (22.0-30.0) sec Sodium (137-145) mmol/L Potassium (3.5-5.1) mmol/L Chloride (98-107) mmol/L Carbon Dioxide (22-30) mmol/L Anion Gap mmol/L BUN (9-20) mg/dL Creatinine (0.66-1.25) mg/dL Est GFR (CKD-EPI)AfAm (>60 ml/min/1.73 sqM) Est GFR (CKD-EPI)NonAf (>60 ml/min/1.73 sqM) Glucose (74-99) mg/dL Plasma Lactic Acid Don (0.7-2.0) mmol/L Calcium (8.4-10.2) mg/dL Magnesium (1.6-2.3) mg/dL Total Bilirubin (0.2-1.3) mg/dL AST (17-59) U/L ALT (4-49) U/L Alkaline Phosphatase (38-126) U/L Troponin I (0.000-0.034) ng/mL NT-Pro-B Natriuret Pep pg/mL Total Protein (6.3-8.2) g/dL Albumin (3.5-5.0) g/dL Influenza Type A RNA Detected H (Not Detectd) Influenza Type B (PCR) Not Detected (Not Detectd) - Radiology Data Radiology results: report reviewed (Chest x-ray is negative for acute disease), image reviewed Critical Care Time Critical Care Time: Yes Total Critical Care Time: 32 Disposition Clinical Impression: Dehydration, Acute exacerbation of chronic obstructive pulmonary disease, Hypoxia, Influenza A Disposition: ADMITTED IP TO THIS HOSP Condition: Fair Is patient prescribed a controlled substance at d/c from ED?: No Referrals: Pedro Luis Holbrook MD [Primary Care Provider] - 1-2 days
--- NOTE | 2019-11-09 21:30 | XR ---
EXAMINATION TYPE: XR chest 2V DATE OF EXAM: 11/09/2019 COMPARISON: 08/11/2019 HISTORY: Difficulty breathing TECHNIQUE: FINDINGS: Heart and mediastinum are normal. Lungs are clear of infiltrate. There is no pleural effusi on. Bony thorax is intact. There are no hilar masses. IMPRESSION: No active cardiopulmonary disease. No change.
[2019-11-09 22:43] LABS: Basophils % (A) 0 %; Eosinophils % (A) 0 %; HCT 34.4 % (39.0-53.0); Lymphocytes # (A) 0.9 k/uL (1.0-4.8); Lymphocytes % (A) 12 %; MCH 27.2 pg (25.0-35.0); MCHC 31.8 g/dL (31.0-37.0); MCV 85.4 fL (80.0-100.0); Mean Platelet Volume 8.6; Monocytes # (A) 0.4 k/uL (0-1.0); Monocytes % (A) 5 %; Neutrophils # (A) 6.1 k/uL (1.3-7.7); Neutrophils % (A) 81 %; Platelet Count 106 k/uL (150-450); RBC 4.03 m/uL (4.30-5.90); RDW 14.9 % (11.5-15.5); WBC 7.6 k/uL (3.8-10.6)
[2019-11-09 22:50] LABS: Albumin 3.9 g/dL (3.5-5.0); Calcium 9.1 mg/dL (8.4-10.2); Magnesium 1.8 mg/dL (1.6-2.3); Potassium 4.2 mmol/L (3.5-5.1); Total Bilirubin 1.1 mg/dL (0.2-1.3); Total Protein 6.5 g/dL (6.3-8.2)
[2019-11-09 22:53] LABS: Partial Thromboplastin Time 24.5 sec (22.0-30.0); Prothrombin Time 10.1 sec (9.0-12.0)
[2019-11-09] MEDS ORDERED: OSELTAMIVIR 75 MG CAP PO STA (23:25)
[2019-11-10] MEDS: SODIUM CHLORIDE 0.9% 1,000 ML IV SCH ×2 (01:35→08:28)
[2019-11-10] MEDS: IPRATROPIUM-ALBUTEROL 3 ML NEB INHALATION SCH ×2 (07:19→11:16)
[2019-11-10] MEDS ORDERED: FLUTICASONE 110 MCG INHALER INHALATION SCH (08:51)
[2019-11-10] MEDS ORDERED: BETAMETHASONE DIPROPIONATE 0.05% OINTMENT 45 GM TUBE TOPICAL PRN (08:51)
[2019-11-10] MEDS ORDERED: LISINOPRIL 5 MG TAB PO SCH (09:00)
[2019-11-10] MEDS ORDERED: MULTIVITAMINS, THERA 1 EACH TAB PO SCH (09:00)
[2019-11-10] MEDS ORDERED: ASPIRIN 81 MG PO SCH (09:00)
[2019-11-10] MEDS ORDERED: ENOXAPARIN 40 MG/0.4 ML SYRINGE SQ SCH (09:00)
[2019-11-10] MEDS ORDERED: LEVOTHYROXINE 88 MCG TAB PO SCH (09:00)
[2019-11-10] MEDS ORDERED: OSELTAMIVIR 75 MG CAP PO SCH (09:00)
[2019-11-10 11:59] LABS: Glucose,Whole Blood 163 mg/dL (75-99)
--- NOTE | 2019-11-10 12:08 | P.HPIM ---
History of Present Illness H&P Date: 11/10/19 Chief Complaint: cough, fever HISTORY AND PHYSICAL AND DISCHARGE SUMMARY: This is a 74-year-old male patient of Dr. Holbrook and Dr. 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 Blackwell status post chemotherapy and radiation treatment 5 years ago with chronic dysphagia. History of diabetes mellitus type 2, hyperlipidemia, hypertension, coronary artery disease. Patient complains of cough with fever up to 101, chills and fatigue. He states he slept all day yesterday. Patient came into [facility] emergency center for evaluation. Influenza A is positive, initial pulse ox 89%. WBC 7.6, hemoglobin 11, platelet count 106. BUN 25 creatinine 1.78 which is patient's baseline. Electrolytes within normal limits, blood sugar 215. Lactic acid 1.7, liver function tests within normal limits. Pro-BMP 691, troponin 0.019. Chest x-ray showed no acute process. Patient is placed on the MedSurg floor. Patient is seen on the MedSurg floor and has no respiratory distress. Pulse ox is currently 94% on room air. Patient is feeling significantly improved 40-50% better since admission. Plan will be for patient to eat lunch and discharge home later today. Consult with Dr. Neville has been canceled. Review of Systems Constitutional: Reports chills, Reports fatigue, Reports fever, Reports lethargy, Reports malaise Eyes: denies blurred vision, denies pain Ears, nose, mouth and throat: Reports nasal congestion, Denies dysphagia, Denies vertigo Cardiovascular: Reports shortness of breath, Denies chest pain, Denies decreased exercise tolerance Respiratory: Reports cough, Reports dyspnea, Denies excessive sputum, Denies hemoptysis, Denies home oxygen, Denies respiratory infections, Denies wheezing Gastrointestinal: Denies abdominal pain, Denies diarrhea, Denies loss of appetite, Denies nausea, Denies vomiting Genitourinary: Denies dysuria, Denies urinary frequency, Denies urinary retention Musculoskeletal: Denies frequent falls, Denies gait dysfunction, Denies myalgias Integumentary: Denies pruritus, Denies rash, Denies wounds Neurological: Denies change in mentation, Denies change in speech, Denies numbness, Denies weakness Psychiatric: Denies anxiety, Denies depression Endocrine: Denies fatigue, Denies weight change Past Medical History Past Medical History: Coronary Artery Disease (CAD), Cancer, Chest Pain / Angina, COPD, Diabetes Mellitus, Hyperlipidemia, Myocardial Infarction (CA), Mus culoskeletal Disorder, Thyroid Disorder Additional Past Medical History / Comment(s): HX OF ESOPHAGEAL CANCER WITH RADIATION TX(2014), TINNITIS., FELL OUT OF ATTIC JUL 2017 AND HAS COMPRESSION FX l-2 (WEARING BACK SUPPORT) ., HAYFEVER ALLERGIES., HAVING DIFFICULTY SWALLOWING SOME FOODS. Stage 4 Throat CA Last Myocardial Infarction Date:: 2001 History of Any Multi-Drug Resistant Organisms: None Reported Past Surgical History: Heart Catheterization With Stent Additional Past Surgical History / Comment(s): cyst removal from back, Toe surgery (child) Past Anesthesia/Blood Transfusion Reactions: No Reported Reaction, Motion Sickness Additional Past Anesthesia/Blood Transfusion Reaction / Comment(s): dizziness when he closes his eyes in the shower. Date of Last Stent Placement:: 2001 Past Psychological History: No Psychological Hx Reported Smoking Status: Former smoker Past Alcohol Use History: Occasional Additional Past Alcohol Use History / Comment(s): quit smoking 2001. smoked 1-2 ppd for 30-35 years. Past Drug Use History: None Reported - Past Family History Father Family Medical History: Hypertension Medications and Allergies Home Medications Medication Instructions Recorded Confirmed Type Atorvastatin [Lipitor] 80 mg PO HS 11/28/14 11/10/19 History Enalapril Maleate [Vasotec] 2.5 mg PO DAILY 11/28/14 11/10/19 History Multivitamins, Thera [Multivitamin 1 tab PO DAILY 11/28/14 11/10/19 History (formulary)] Aspirin [Adult Low Dose Aspirin EC] 81 mg PO DAILY 08/14/17 11/10/19 History Levothyroxine Sodium [Synthroid] 88 mcg PO DAILY 08/14/17 11/10/19 History Albuterol Nebulized [Ventolin 2.5 mg INHALATION RT-TID PRN 08/11/19 11/10/19 History Nebulized] Cinnamon Bark [Cinnamon] 1,000 mg PO BID 08/11/19 11/10/19 History Fluticasone Propionate 110 Mcg 2 puff INHALATION RT-BID PRN 08/11/19 11/10/19 History [Flovent 110 Mcg Inhaler (Bulk)] Ipratropium Nebulized [Atrovent 0.5 mg INHALATION RT-Q6H PRN 08/11/19 11/10/19 History Nebulized 0.2 MG/ML] Elmer-3 Fatty Acids/Fish Oil [Fish 1 cap PO DAILY 08/11/19 11/10/19 History Oil 1,000 mg Softgel] Triamcinolone 0.5% Oint 1 applic TOPICAL DAILY PRN 08/11/19 11/10/19 History Oseltamivir [Tamiflu] 75 mg PO Q12HR #10 cap 11/10/19 Rx Allergies Allergy/AdvReac Type Severity Reaction Status Date / Time Sulfa (Sulfonamide Allergy Unknown Verified 11/10/19 10:46 Antibiotics) Childhood Physical Exam Vitals: Vital Signs Temp Pulse Pulse Resp BP BP BP 11/10/19 07:31 88 11/10/19 07:20 84 11/10/19 07:12 98.6 F 88 20 134/76 11/10/19 00:41 98.5 F 96 17 140/73 11/10/19 00:00 111 H 11/09/19 23:53 98.9 F 111 H 18 108/52 11/09/19 22:08 108 H 18 11/09/19 21:56 95 16 11/09/19 21:43 100.8 F H 99 18 126/69 11/09/19 20:31 100.8 F H 105 H 20 117/70 Pulse Ox 11/10/19 07:31 11/10/19 07:20 11/10/19 07:12 98 11/10/19 00:41 97 11/10/19 00:00 11/09/19 23:53 96 11/09/19 22:08 11/09/19 21:56 11/09/19 21:43 96 11/09/19 20:31 89 L Intake and Output 11/09/19 11/10/19 11/10/19 22:59 06:59 14:59 Other: # Bowel Movements 0 Weight 101.151 kg Gen: This is a 74-year-old male. He is sitting in a chair and appears to be comfortable and in no acute distress. HEENT: Head is atraumatic, normocephalic. Pupils equal, round. Sclerae is anicteric. NECK: Supple. No JVD. No lymphadenopathy. No thyromegaly. LUNGS: Clear to auscultation. No wheezes or rhonchi. No intercostal retractions. No accessory muscle usage. No cough. HEART: Regular rate and rhythm. No murmur. ABDOMEN: Soft. Bowel sounds are present. No masses. No tenderness. EXTREMITIES: No pedal edema. No calf tenderness. NEUROLOGICAL: Patient is awake, alert and oriented x3. Cranial nerves 2 through 12 are grossly intact. Results CBC & Chem 7: 11/09/19 20:15 11/09/19 20:15 Labs: Abnormal Lab Results - Last 24 Hours (Table) 11/09/19 11/09/19 11/09/19 Range/Units 20:15 20:15 20:15 RBC 4.03 L (4.30-5.90) m/uL Hgb 11.0 L (13.0-17.5) gm/dL Hct 34.4 L (39.0-53.0) % Plt Count 106 L (150-450) k/uL Lymphocytes # 0.9 L (1.0-4.8) k/uL BUN 25 H (9-20) mg/dL Creatinine 1.78 H (0.66-1.25) mg/dL Glucose 215 H (74-99) mg/dL Influenza Type A RNA Detected H (Not Detectd) Thrombosis Risk Factor Assmnt - Choose All That Apply Any of the Below Risk Factors Present?: Yes Each Factor Represents 1 point: Abnormal pulmonary function (COPD), Obesity (BMI >25) Other Risk Factors: Yes Each Risk Factor Represents 2 Points: Age 61-74 years Thrombosis Risk Factor Assessment Total Risk Factor Score: 4 Thrombosis Risk Factor Assessment Level: Moderate Risk Assessment and Plan Plan: 1. Influenza A. Patient to complete course of Tamiflu. 2. Hypoxia. Patient had one reading of low pulse ox of 89%. Pulse ox is currently 94% on room air. No respiratory distress. 3. Stage IV head and neck squamous cell cancer, stable. 4. Diabetes mellitus type 2. Metformin will be discontinued due to chronic kidney disease. Patient to discuss medication at office visit with Dr. Holbrook. 5. Hypertension. 6. Hyperlipidemia. 7. Coronary artery disease, stable. Patient placed as an observation status. Discharge plan: home Discharge Medication List Atorvastatin [Lipitor] 80 mg PO HS 11/28/14 [History] Enalapril Maleate [Vasotec] 2.5 mg PO DAILY 11/28/14 [History] Multivitamins, Thera [Multivitamin (formulary)] 1 tab PO DAILY 11/28/14 [History] Aspirin [Adult Low Dose Aspirin EC] 81 mg PO DAILY 08/14/17 [History] Levothyroxine Sodium [Synthroid] 88 mcg PO DAILY 08/14/17 [History] Albuterol Nebulized [Ventolin Nebulized] 2.5 mg INHALATION RT-TID PRN 08/11/19 [History] Cinnamon Bark [Cinnamon] 1,000 mg PO BID 08/11/19 [History] Fluticasone Propionate 110 Mcg [Flovent 110 Mcg Inhaler (Bulk)] 2 puff I NHALATION RT-BID PRN 08/11/19 [History] Ipratropium Nebulized [Atrovent Nebulized 0.2 MG/ML] 0.5 mg INHALATION RT-Q6H PRN 08/11/19 [History] Elmer-3 Fatty Acids/Fish Oil [Fish Oil 1,000 mg Softgel] 1 cap PO DAILY 08/11/19 [History] Triamcinolone 0.5% Oint 1 applic TOPICAL DAILY PRN 08/11/19 [History] Oseltamivir [Tamiflu] 75 mg PO Q12HR #10 cap 11/10/19 [Rx] Impression and plan of care have been directed as dictated by the signing physician. Nancy Lopez nurse practitioner acting as scribe for signing physician.
[2019-11-10] MEDS ORDERED: INSULIN ASPART (NovoLOG) 100 UNIT/ML VIAL SQ SCH (12:30)
[2019-11-10 13:12] VITALS: BP 92/54; PULSE 95; RESP 21; TEMP 97.9
[2019-11-10] MEDS ORDERED: ATORVASTATIN 80 MG TAB PO SCH (21:00)
== END 2019-11-10 14:25 | disposition home or self-care (01) ==
LOC: EC 20:13 → 6NMEDSUR 23:25
PROVIDERS: ADMIT Internal Medicine Geriatric Medicine; ATTEND Internal Medicine Geriatric Medicine
DX: J10.1 Influenza due to other identified influenza virus with other respiratory manifestations (principal); R09.02 Hypoxemia; J44.1 Chronic obstructive pulmonary disease with (acute) exacerbation; E11.22 Type 2 diabetes mellitus with diabetic chronic kidney disease; I13.0 Hypertensive heart and chronic kidney disease with heart failure and stage 1 through stage 4 chronic kidney disease, or unspecified chronic kidney disease; E78.5 Hyperlipidemia, unspecified; E86.0 Dehydration; I25.10 Atherosclerotic heart disease of native coronary artery without angina pectoris; I25.2 Old myocardial infarction; N18.9 Chronic kidney disease, unspecified; E07.9 Disorder of thyroid, unspecified; E11.65 Type 2 diabetes mellitus with hyperglycemia; Z85.01 Personal history of malignant neoplasm of esophagus; Z88.2 Allergy status to sulfonamides; Z79.84 Long term (current) use of oral hypoglycemic drugs; Z79.51 Long term (current) use of inhaled steroids; Z79.890 Hormone replacement therapy; Z79.82 Long term (current) use of aspirin; Z79.899 Other long term (current) drug therapy; Z79.52 Long term (current) use of systemic steroids; Z87.891 Personal history of nicotine dependence; Z82.49 Family history of ischemic heart disease and other diseases of the circulatory system; Z92.3 Personal history of irradiation; Z92.21 Personal history of antineoplastic chemotherapy; J30.1 Allergic rhinitis due to pollen; Z85.819 Personal history of malignant neoplasm of unspecified site of lip, oral cavity, and pharynx
CPT/HCPCS: 96361 ×2; 96372; 96360; 99291; 36415; 94640 ×3; 93005; 83880; 80053; 83605; 83735; 84484; 85025; 85610; 85730; 87040; 87502; 71046; G0378; J1650

== ENCOUNTER → 2020-10-10 | Outpatient (CLI) | payer MEDICARE ==
--- NOTE | 2020-10-10 13:13 | PE ---
EXAMINATION TYPE: PET CT fusion skull to thigh DATE OF EXAM: 10/10/2020 COMPARISON: Prior PET/CT October 06, 2019 and older studies HISTORY: History of throat cancer diagnosed and treated 5 years ago. Treated stage IV squamous cell c arcinoma of the left throat. TECHNIQUE: Following the intravenous administration of 11.79 mCi of F-18 FDG, whole body images are performed from the skull base to the midthigh. Images are reviewed on the computer in the coronal, a xial, and sagittal planes. Reconstructed rotating images are created on independent workstation and reviewed on the computer. A localization and attenuation correction CT is performed in conjunction with the PET scan. Dedicated PET/CT imaging of the neck is performed. Blood glucose level equals 128. SCAN: Subsequent Scan FINDINGS: SKULL BASE AND NECK: No new suspicious hypermetabolic uptake. CHEST, MEDIASTINUM, AND HILAR REGION: No new suspicious hypermetabolic uptake. ABDOMEN AND PELVIS: No new suspicious hypermetabolic uptake. OSSEOUS STRUCTURES: No new suspicious hypermetabolic uptake. OTHER CT: Stable calcified 10 mm lymph node adjacent to small size left thyroid lobe axial image 69. Stable small size thyroid. Moderate to severe three-vessel coronary artery calcification and/or stents. Stable 5.4 cm simple cheryl earing cyst upper pole left kidney and central parapelvic cyst in the left kidney. Moderate to severe calcified plaque abdominal aorta extends into branch vessels. Central calcifications in prostate gla nd. Facet arthropathy lower lumbar spine. Mild height loss L2 vertebra redemonstrated. IMPRESSION: No suspicious new hypermetabolic uptake to suggest active neoplastic recurrence.
== END | disposition home or self-care (01) ==
LOC: RADPETMAIN 08:53
PROVIDERS: ATTEND Internal Medicine Hematology & Oncology
DX: C76.0 Malignant neoplasm of head, face and neck (principal); E11.9 Type 2 diabetes mellitus without complications; Z87.891 Personal history of nicotine dependence; Z92.3 Personal history of irradiation; Z92.21 Personal history of antineoplastic chemotherapy
CPT/HCPCS: 78815; A9552

== ENCOUNTER → 2021-08-11 | Outpatient (CLI) | payer MEDICARE ==
[2021-08-11 14:50] LABS: HCT 41.8 % (39.0-53.0); HGB 12.7 gm/dL (13.0-17.5); Hypochromasia Moderate; MCH 26.6 pg (25.0-35.0); MCHC 30.4 g/dL (31.0-37.0); MCV 87.6 fL (80.0-100.0); Mean Platelet Volume 8.2; Platelet Count 171 k/uL (150-450); RBC 4.78 m/uL (4.30-5.90); RDW 15.3 % (11.5-15.5); WBC 8.6 k/uL (3.8-10.6)
[2021-08-11 14:53] LABS: Appearance,Urine Clear (Clear); Bilirubin,Urine Negative (Negative); Blood,Urine Negative (Negative); Color,Urine Yellow; Glucose,Urine (UA) 4+ (Negative); Ketones,Urine Negative (Negative); Leukocyte Esterase,Urine Negative (Negative); Nitrite,Urine Negative (Negative); Protein,Urine Negative (Negative); Specific Gravity,Urine 1.024 (1.001-1.035); Urobilinogen,Urine <2.0 mg/dL (<2.0)
[2021-08-11 14:57] LABS: INR 0.9 (<1.2); Partial Thromboplastin Time 23.2 sec (22.0-30.0); Prothrombin Time 10.1 sec (9.0-12.0)
[2021-08-11 14:58] LABS: Albumin 4.2 g/dL (3.5-5.0); Calcium 9.6 mg/dL (8.4-10.2); Potassium 4.5 mmol/L (3.5-5.1); Total Bilirubin 0.9 mg/dL (0.2-1.3); Total Protein 7.1 g/dL (6.3-8.2)
== END | disposition home or self-care (01) ==
LOC: LABPAT 12:42
PROVIDERS: ATTEND Orthopaedic Surgery Sports Medicine
DX: Z01.812 Encounter for preprocedural laboratory examination (principal)
CPT/HCPCS: 80053; 81003; 85027; 85610; 85730; 87070

== ENCOUNTER → 2021-08-24 | Outpatient (CLI) | payer MEDICARE ==
[~2021-08-24] MED LIST changes: -LACTATED RINGERS 1,000 ML IV SCH; +REGADENOSON 0.4 MG/5 ML SYRINGE IV PRN
--- NOTE | 2021-08-24 12:30 | NM ---
EXAMINATION TYPE: NM stress lexiscan cardiolite DATE OF EXAM: 08/24/2021 COMPARISON: NONE HISTORY: I25.10 atheroscleratic heart disease TECHNIQUE: After the intravenous administration of 10.0 mCi Tc 99m Sestamibi - Cardiolite resting SP ECT images acquired 45 minutes post injection. The patient received 0.4mg Lexiscan, 24.9 mCi Tc 99m Sestamibi - Stress images obtained [address] injection FINDINGS: Review of stress and rest SPECT images demonstrates fixed decreased perfusion involving the inferior wall and inferoseptal wall. There is also involvement of the cardiac apex. Gated analysis shows holly l wall motion with an estimated left ventricular ejection fraction of 62 %. Moderate skin and just been IMPRESSION: No scintigraphic evidence for reversible ischemia.
--- NOTE | 2021-08-24 19:26 | P.STRESS ---
- Stress Test Note Stress Test Results/Findings: Exam Performed: NM stress lexiscan cardiolite Exam Date: 08/24/21 Reason for Exam: ATHEROSCLEROTIC HEART DISEASE Height: 5 ft 11 in Weight: 97.3 kg Protocol: LEXISCAN Stage: NA Duration of Exercise: 5 MINUTES Resting Heart Rate: 62 Resting Blood Pressure: 121/62 Maximum Achieved Heart Rate: 82 Maximum Achieved Blood Pressure: 135/59 85% PMHR: 124 100% PMHR: 146 METS: NA Technologist Comment: Stress Test Results/Findings: Baseline heart rate 62 beats a minute, Baseline blood pressure 121/62 mmHg Baseline 20 EKG showed sinus rhythm normal SC incomplete right bundle branch block pattern normal ST segments Patient received Lexiscan infusion per protocol No change in heart rate and blood pressure No EKG changes of ischemia No arrhythmias Nuclear portion will be reported separately
--- NOTE | 2021-08-26 10:08 | ECHOS ---
Stress Test Results/Findings: Exam Performed: NM stress lexiscan cardiolite Exam Date: 08/24/21 Reason for Exam: ATHEROSCLEROTIC HEART DISEASE Height: 5 ft 11 in Weight: 97.3 kg Protocol: LEXISCAN Stage: NA Duration of Exercise: 5 MINUTES Resting Heart Rate: 62 Resting Blood Pressure: 121/62 Maximum Achieved Heart Rate: 82 Maximum Achieved Blood Pressure: 135/59 85% PMHR: 124 100% PMHR: 146 METS: NA Technologist Comment: Stress Test Results/Findings: Baseline heart rate 62 beats a minute, Baseline blood pressure 121/62 mmHg Baseline 20 EKG showed sinus rhythm normal HI incomplete right bundle branch block pattern normal ST segments Patient received Lexiscan infusion per protocol No change in heart rate and blood pressure No EKG changes of ischemia No arrhythmias Nuclear portion will be reported separately MTDD
== END | disposition home or self-care (01) ==
LOC: RADNMMAIN 07:46
PROVIDERS: ATTEND Internal Medicine Geriatric Medicine
DX: I25.10 Atherosclerotic heart disease of native coronary artery without angina pectoris (principal)
CPT/HCPCS: 93017; 78452; A9500; J2785

== ENCOUNTER 2021-08-27 08:24 | Day surgery (SDC) | payer MEDICARE ==
[2021-08-24 16:00] VITALS: BMI 29.9
[~2021-08-27 08:24] MED LIST changes: +ACETAMINOPHEN TAB 500 MG TAB PO PRN; +GABAPENTIN 300 MG CAP PO PRN; +MELOXICAM 7.5 MG TAB PO PRN; +ONDANSETRON 4 MG/2 ML VIAL IVP PRN; -REGADENOSON 0.4 MG/5 ML SYRINGE IV PRN; +TRANEXAMIC ACID 1,000 MG in SODIUM CHLORIDE 0.9% 100 ML IVPB PRN
[2021-08-27] MEDS ORDERED: METOCLOPRAMIDE 5 MG/ML 2 ML VIAL IVP PRN (08:35)
[2021-08-27] MEDS ORDERED: HYDROmorphone 0.5 MG/0.5 ML SYRINGE IVP PRN ×3 (08:35→10:23)
[2021-08-27] MEDS ORDERED: LIDOCAINE 1% (10MG/ML) FOR IV START INTRADERMA PRN (08:35)
[2021-08-27] MEDS ORDERED: LIDOCAINE 1% (10MG/ML) FOR IV START INTRADERMA ONE (09:15)
[2021-08-27] MEDS: LACTATED RINGERS 1,000 ML IV SCH ×2 (09:15→16:13)
[2021-08-27] MEDS ORDERED: DEXAMETHASONE SOD PHOSPHATE 4 MG/ML 1 ML VIAL IV ONE (09:25)
[2021-08-27 09:26] LABS: Glucose,Whole Blood 127 mg/dL (75-99)
[2021-08-27] MEDS ORDERED: MIDAZOLAM 2 MG/2 ML VIAL IVP ONE (09:49)
[2021-08-27] MEDS ORDERED: TEMAZEPAM 15 MG CAP PO PRN (10:23)
[2021-08-27] MEDS ORDERED: HYDROmorphone 0.2 MG/1 ML SYRINGE IVP PRN (10:23)
[2021-08-27] MEDS ORDERED: NALOXONE 0.4 MG/ML 1 ML VIAL IV PRN (10:23)
[2021-08-27] MEDS ORDERED: traMADol 50 MG TAB PO PRN (10:23)
[2021-08-27] MEDS ORDERED: ONDANSETRON 4 MG/2 ML VIAL IVP PRN (10:23)
[2021-08-27] MEDS ORDERED: HYDROcodone/APAP 10-325MG 1 EACH TAB PO PRN (10:23)
[2021-08-27] MEDS ORDERED: MAGNESIUM HYDROXIDE 2,400 MG/10 ML CUP PO PRN (10:23)
[2021-08-27] MEDS ORDERED: HYDROcodone/APAP 5-325MG 1 EACH TAB PO PRN (10:23)
[2021-08-27] MEDS ORDERED: NA PHOS,M-B/NA PHOS,DI-BA 133 ML ENEMA RECTAL PRN (10:23)
[2021-08-27] MEDS ORDERED: ACETAMINOPHEN TAB 325 MG TAB PO PRN (10:23)
[2021-08-27] MEDS ORDERED: bisacodyL 10 MG SUPP RECTAL PRN (10:23)
[2021-08-27] MEDS ORDERED: ceFAZolin 3,000 MG in SODIUM CHLORIDE 0.9% IRRIGATIO 3,000 ML IRRIGATION ONE (11:08)
[2021-08-27] MEDS ORDERED: LACTATED RINGERS 1,000 ML IV ONE (12:05)
--- NOTE | 2021-08-27 12:46 | OP ---
OPERATIVE REPORT DATE OF PROCEDURE: 08/27/2021. SURGEON: Jose Angel Dalton MD. BEAVER TRAPPER: Enrique NICE. PREOPERATIVE DIAGNOSIS: Left knee osteoarthrosis. POSTOPERATIVE DIAGNOSIS: Left knee osteoarthrosis. OPERATION: Left total knee arthroplasty. ANESTHESIA: Spinal sedation. ESTIMATED BLOOD LOSS: 100 mL. TOURNIQUET: Tourniquet time was 46 minutes at 250 mmHg. COMPLICATIONS: None apparent. DRAINS: None. DISPOSITION: Postanesthesia care unit. INDICATIONS: Hang is a very pleasant 76-year-old male with longstanding history of left knee pain. History and physical examination are consistent with advanced left knee osteoarthrosis. He has been through significant nonoperative management up to this point. Further treatment options were discussed and he has decided to go forward with the left total knee arthroplasty. The risks of procedure were discussed with him in detail. These risks included, but were not limited to risk of infection, nerve damage, bleeding, pain, and a small risk of deep vein thrombosis which could lead to fatal pulmonary embolism. There is also risk of loosening of the implant which could require revision operation. The patient understands these risks. All of his questions were answered to his satisfaction. Appropriate informed consent was obtained. DESCRIPTION OF PROCEDURE: The patient identified in preoperative holding area. Surgical sites marked by both the patient and myself. He was given 2 grams of Ancef IV for prophylactic purposes. He was then transferred to the operative suite. He was placed supine on the operative table. A spinal anesthetic was then administered and dosed per the anesthesia without apparent complication. Examination under anesthesia was then performed. The patient was 2 - 3 degrees shy of full extension. He had 100 degrees of flexion. The medial collateral ligament, lateral collateral ligament and posterior cruciate ligaments were stable. Tourniquet was then placed high on the left upper thigh and well-padded in preparation for surgery. The patient's left lower extremity was then prepped and draped in usual sterile fashion. Standard surgical pause undertaken to ensure that we were operating on the correct site and that appropriate preoperative antibiotics were given. All staff were in agreement we proceeded. The outlines of the patella marked surgical pen. A planned 12 cm vertical incision centered over the patella was marked with a surgical pen. Leg was then exsanguinated with an Esmarch dressing. The knee was then flexed and tourniquet inflated to 250 mmHg. The total tourniquet time for the procedure was 46 minutes. Incision was then made with a 10 blade scalpel. Dissection carried down sharply overlying fascia. Great care was taken to minimize the skin flaps. The knee was then exposed using a standard medial parapatellar approach. A small cuff of quadriceps tendon was left for suturing. He was in a bit of varus preoperatively. A standard medial release was then made. The superficial medial collateral ligament was dissected off the bone around the posterior aspect of the proximal tibia. The medial meniscus was then excised as well. The lateral meniscus was also released anteriorly. The leg was then externally rotated. The patella was everted. The knee was flexed. The retractors then placed to protect the collateral ligaments. I then proceeded to remove the infrapatellar fat pad. This was excised sharply tangentially with fibers of the patellar tendon. I then proceeded to remove the peripheral osteophytes. This was done with a rongeur. I then proceeded with the distal femoral resection. He did have near full extension. A planned 9 mm resection was then done. The femoral canal was then entered into the midline of the femur, approximately 10 mm anterior to the origin of the posterior cruciate ligament. The daniel was then advanced down the center of the femur and placed intramedullary. Based on the preoperative radiographs, the angle between the anatomic and mechanical axis of the femur was approximately 4-5 degrees. The valgus angle of the distal femoral cutting guide was then set at 4 degrees for the left knee. The distal femoral cutting guide was then advanced over the intramedullary daniel. This was seated firmly against the femur. Then as mentioned planned to take 9 mm off the distal femur. The cutting block was then secured onto the femur with pins. The jig was then removed. The distal femoral cut was made through the slot of the block. The pins were then removed. The distal femoral cutting block was removed. The accuracy of the distal femoral cuts was checked with 2 flat bars. I then proceeded with femoral sizing. The posterior referencing sizing guide was held firmly against the resected distal surface of the femur. The posterior condyles were resting on the posterior plane of the guide. The sizing guide was then placed on the anterior femur. The size measured as size 8. I then assessed for femoral rotation. Plan was for 3 degrees external rotation. Three degrees external rotation was placed onto the jig. These holes were then marked. I then confirmed the rotation by 3 separate methods. This was done using epicondylar axis as well as Whitesides line and posterior referencing team. It was deemed that the external rotation was proper. I then went forward placing the femoral cutting block. This was placed over the previously placed pin holes. The John wing was then placed onto the anterior slots to ensure that we would not notch the anterior femur with the anterior femoral cut. I then proceeded with the anterior femoral cut. This was flush with the anterior cortex of the femur. Posterior cuts were then made followed by the anterior chamfer cut, then the posterior chamfer cut. The cutting block was then removed. Throughout the resection, the collateral ligaments were protected with retractors. I then placed a trial size 8 femur. It fit very nice medial-lateral and fit flush with the distal end of the femur. The drill hole was then made. I then proceeded with the tibial cut. I planned for cruciate-retaining knee. The guide was placed and set for varus valgus and for slope. The height was set for approximate 2 mm resection from the medial tibial plateau which was the lower side. I was happy with the alignment and amount of resection. The cutting block was then pinned to the proximal tibia. The alignment daniel was removed. Proximal tibia was resected with a reciprocating saw. Again, this was done with retractors protecting the collateral ligaments as well as the posterior cruciate ligament. I then proceeded to evaluate the flexion extension gaps. A 10 mm block was then placed. The flexion and extension gaps were equal. I then proceed with resection of posterior osteophytes. Very minimal posterior osteophytes. This was done using a curved osteotome. This resected the posterior osteophytes and posterior capsule stripping was done off the posterior aspect of the femur at this time. The osteophytes were then removed. I then proceed with resection of patella. The thickness of the patella was measured using the caliper. The thickness was 24 mm. The thickness of the anticipated patellar dome was taken into account. Resection was then performed and confirmed to be equal in 4 quadrants using a caliper. Approximately 14 mm of bone remained after resection. A 32 x 8.5 mm standard patellar trial was then placed. The holes drilled. The trial was then placed. I then proceeded with sizing tibial plate. A size F tibial plate fit very nicely. I then placed the trial femur in the tibial tray and patellar button. A 10 mm trial tibial insert was also placed. The components were fit very nicely. He had full extension and flexion. The extension and flexion gaps were equal and stable to both varus and valgus stress. The patella tracked appropriately. The tibial tray rotation was then marked with a Bovie. This was externally rotated properly. I then proceed with tibial preparation. The I first drilled femoral holes, removed femoral component. The tibial tray was then set for proper external rotation as well as mediolateral placement onto the tibia. It was then pinned into place. I then proceeded with punching the keel. I then decided to proceed with cementing of all our components. The knee was thoroughly irrigated with sterile saline solution via pulse lavage. The lateral geniculate artery was identified and cauterized. All blood was removed from the bone of the tibia femur and patella with pulse lavage. I then proceed with cementing. Two packs of antibiotic bone cement prepared on the back table by the director medical surgical. I then proceed with cementing the tibia first. The cement was impacted in the keel as well as deeply seated in the bone. A second coat of cement was then placed. The tibia was then impacted into place. Excess cement was removed with Lydia's and Joker's. I then proceeded with cementing of the femoral component. The femoral component was also cemented using standard technique. Excess cement was removed. A 10 mm trial insert was then placed in the knee. It was brought in full extension with a constant axial load placed until the cement had hardened. The patellar component was then cemented. This held firmly with a compressive device until the cement had dried. When the cement had dried, the knee was taken out of extension. All excess cement was removed from around the prosthesis. I then trialed the knee with a 10 mm insert. Flexion extension gaps were appropriate. I then trialed with a 12 mm insert. The flexion and extension gaps felt much better. The knee was stable with 12 mm insert. It came into full extension. I decided to go forward with the 12 mm medial congruent cross-linked cruciate-retaining tibial insert. Polyethylene was then placed on the tibial tray and locked in place. The knee was then reduced. The knee was again further irrigated with sterile saline solution with antibiotic added. The tourniquet was then deflated. Total tourniquet time for the procedure was 46 minutes at 250 mmHg. Final components were Dony Persona size 8 cruciate-retaining femoral component, size F tibial tray and a 12 mm medial congruent cruciate-retaining polyethylene insert and a 32 x 8.5 mm patella. I then proceeded with closure. Again, the knee was thoroughly irrigated. The quadriceps tendon and the medial retinaculum reapproximated with #2 Ethibond suture. The extensor mechanism was then closed with a running #2 Quill suture. Subcutaneous tissues were closed with 2-0 Vicryl interrupted suture. The skin was closed with a running 3-0 Quill suture. Dermabond was applied to the incision. Sterile compressive dressing was then applied. All sponge and needle counts were deemed correct prior to closure. Patient tolerated procedure without apparent complication. He was transferred to recovery room in stable condition. MMODL / IJN: [id number] /
[2021-08-27] MEDS ORDERED: ROPIVACAINE 0.2%-NS ON-Q PUMP 2 MG/ML EACH MISCELLANE ONE (12:49)
--- NOTE | 2021-08-27 13:28 | XR ---
EXAMINATION TYPE: XR knee limited LT DATE OF EXAM: 08/27/2021 CLINICAL HISTORY: Postoperative evaluation Two views of the left knee are submitted. Identified are changes of total knee arthroplasty with fem oral and tibial components appearing well seated. Postsurgical soft tissue changes are noted. Align ment is anatomic.
[2021-08-27] MEDS ORDERED: FLUTICASONE 110 MCG INHALER INHALATION PRN (15:22)
[2021-08-27] MEDS ORDERED: ALBUTEROL NEBULIZED 2.5 MG/3 ML INHALATION PRN (15:22)
[2021-08-27] MEDS ORDERED: IPRATROPIUM 0.5 MG/2.5 ML NEBU INHALATION PRN (15:22)
--- NOTE | 2021-08-27 15:29 | P.CONS ---
History of Present Illness - Reason for Consult Consult date: 08/27/21 - Chief Complaint Medical management - History of Present Illness 89 years old patient of Dr. Holbrook with past medical history of coronary artery disease status post stenting in 2001, type II uncontrolled diabetes, hyperlipidemia, asthma, depression comes in for an elective left knee arthroplasty for an advanced medial Department moderate patellofemoral compartment osteoarthritis of the left knee. since patient failed outpatient conservative treatment including steroid injections. Patient had an estimated blood loss of 100 mL. No complications during the surgery. Patient had stress test prior to the surgery. Patient evaluated bedside denies any nausea, vomiting no abdominal pain, no shortness of breath or cough production. He denies any history of DVT or pulmonary embolism in the past. Vitals are reviewed patient is afebrile pulse 61 respiratory rate 16 blood pressure 129/55 on room air. Coronary wires is not detected glucose 127. Patient's asthma is controlled will continue albuterol as needed ROS Constitutional: Denies chills, Denies fever, Denies lethargy, Denies malaise, Denies poor appetite, Denies weakness, Denies weight loss Eyes: denies decreased vision, denies diplopia, denies discharge, denies pain Ears: deny: decreased hearing Ears, nose, mouth and throat: Denies dental pain, Denies headache, Denies nasal discharge, Denies nose pain Cardiovascular: Denies chest pain, Denies decreased exercise tolerance, Denies edema, Denies high blood pressure, Denies irregular heart beat, Denies palpitations, Denies paroxysmal nocturnal dyspnea, Denies rapid heart beat, Denies shortness of breath Respiratory: Denies congestion, Denies cough, Denies cough with sputum, Denies dyspnea, Denies home oxygen, Denies wheezing Gastrointestinal: Denies abdominal pain, Denies change in bowel habits, Denies coffee ground emesis, Denies early satiety, Denies excessive gas, Denies heartburn, Denies hematemesis, Denies hematochezia, Denies loss of appetite, Denies nausea, Denies vomiting Genitourinary: Denies dysuria, Denies flank pain, Denies kidney stones, Denies menorrhagia, Denies urgency, Denies urinary frequency Musculoskeletal: Endorses left knee pain with gait dysfunction, Denies limitation of motion, Denies morning stiffness, Denies muscle cramps Integumentary: Denies rash, Denies wounds, Denies brittle nails, Denies change in hair/nails, Denies darkening of skin Neurological: Denies balance difficulties, Denies change in speech, Denies double vision, Denies gait dysfunction, Denies loss of vision, Denies motor disturbance, Denies numbness, Denies paralysis, Denies paresthesias, Denies seizures Psychiatric: Denies anxiety, Denies depression Endocrine: Denies excessive sweating, Denies excessive thirst, Denies high blood sugars, Denies palpitations Hematologic/Lymphatic: Denies easy bruising, Denies lymphadenopathy Social history quit smoking in 2001, smoke 1 pack a day for 40+ years Denies drinking No illicit drug use Family history Dad at 88 from heart disease and chronic kidney disease Mother at 87 from [place] disease Has 1 brother and 1 sister with no significant medical problem Has 1 son with no medical problems Physical exam - Constitutional General appearance: cooperative, no acute distress, obese - EENT Eyes: anicteric sclerae, PERRLA, normal appearance ENT: hearing grossly normal - Neck Neck: no lymphadenopathy, normal ROM, no other, no rigidity, no stridor, no thyromegaly - Respiratory Respiratory: bilateral: CTA, negative: diminished, dullness, rales, rhonchi - Cardiovascular Rhythm: regular Heart sounds: normal: S1, S2 Abnormal Heart Sounds: no systolic murmur, no diastolic murmur, no rub, no S3 Gallop, no S4 Gallop, no click, no other - Gastrointestinal General gastrointestinal: normal bowel sounds, soft - Integumentary Integumentary: no rash - Neurologic Neurologic:No gross motor or sensory deficit - Musculoskeletal Musculoskeletal:Left knee covered in dressing with drain able to move bilateral extremity without significant pain. If her pulses palpable - Psychiatric Psychiatric: A&O x's 3, appropriate affect Assessment and plan Postoperative day 0 left knee arthroplasty - Pain control per primary team - Incentive spirometry for pulmonary prophylaxis -Aspirin 81 mg twice a day for DVT prophylaxis - PT OT consulted - Encourage mobilization - Encourage ankle pumps while in bed - Patient counseled on complications post removal surgery including DVTs and pneumonias. Type 2 diabetes uncontrolled Continue metformin 1000 twice a day - Insulin sliding scale before meals at bedtime -Glucose checked before meals at bedtime Coronary artery to disease status post N 2001 - Continue atorvastatin, aspirin and enalapril - Patient is not on beta sara and follows with cardiology Hypertension -Continue enalapril 2.5 daily History of asthma -Controlled -Albuterol as needed for shortness of breath Hypothyroidism - Continue Synthyroid 88 g by mouth daily Depression Zoloft 25 mg by mouth daily - DVT prophylaxis -Aspirin 81 twice a day Thank you for the consult. I'll be happy to assist in patient's medical nevi patient in the hospital Past Medical History Past Medical History: Asthma, Coronary Artery Disease (CAD), Cancer, Chest Pain / Angina, COPD, Diabetes Mellitus, Hyperlipidemia, Hypertension, Myocardial Infarction (PA), Musculoskeletal Disorder, Thyroid Disorder Additional Past Medical History / Comment(s): HX OF ESOPHAGEAL CANCER WITH RADIATION TX(2014), TINNITIS., FELL OUT OF ATTIC JUL 2017 AND HAS COMPRESSION FX l-2 (WEARING BACK SUPPORT) ., HAYFEVER ALLERGIES., HAVING DIFFICULTY SWALLOWING SOME FOODS. Stage 4 Throat CA, AGENT ORGANE EXPOSURE. RIGHT ARM LYMPHEDEMA Last Myocardial Infarction Date:: 2001 History of Any Multi-Drug Resistant Organisms: None Reported Past Surgical History: Heart Catheterization With Stent Additional Past Surgical History / Comment(s): cyst removal from back, Toe surgery (child), NECK BIOPSY - ESOPHAGEAL CANCER Past Anesthesia/Blood Transfusion Reactions: No Reported Reaction, Motion Sickness Additional Past Anesthesia/Blood Transfusion Reaction / Comm: dizziness when he closes his eyes in the shower. Date of Last Stent Placement:: 2001 Smoking Status: Former smoker - Past Family History Father Family Medical History: Hypertension Medications and Allergies Home Medications Medication Instructions Recorded Confirmed Type Atorvastatin [Lipitor] 80 mg PO HS 11/28/14 08/24/21 History Enalapril Maleate [Vasotec] 2.5 mg PO DAILY 11/28/14 08/24/21 History Multivitamins, Thera [Multivitamin 1 tab PO DAILY 11/28/14 08/24/21 History (formulary)] Aspirin [Adult Low Dose Aspirin EC] 81 mg PO DAILY 08/14/17 08/24/21 History Levothyroxine Sodium [Synthroid] 88 mcg PO DAILY 08/14/17 08/24/21 History Albuterol Nebulized [Ventolin 2.5 mg INHALATION RT-TID PRN 08/11/19 08/24/21 History Nebulized] Cinnamon Bark [Cinnamon] 1,000 mg PO BID 08/11/19 08/24/21 History Fluticasone Propionate 110 Mcg 2 puff INHALATION RT-BID PRN 08/11/19 08/24/21 History [Flovent 110 Mcg Inhaler (Mhu)] Ipratropium Nebulized [Atrovent 0.5 mg INHALATION RT-Q6H PRN 08/11/19 08/24/21 History Nebulized 0.2 MG/ML] [place]-3 Fatty Acids/Fish Oil [Fish 1 cap PO DAILY 08/11/19 08/24/21 History Oil 1,000 mg Softgel] Cetirizine HCl [Zyrtec] 10 mg PO DAILY PRN 08/24/21 08/24/21 History Dapagliflozin Propanediol [Farxiga] 10 mg PO DAILY 08/24/21 08/24/21 History Sertraline [Zoloft] 25 mg PO DAILY 08/24/21 08/24/21 History metFORMIN HCL [Glucophage] 1,000 mg PO BID 08/24/21 08/24/21 History Allergies Allergy/AdvReac Type Severity Reaction Status Date / Time Sulfa (Sulfonamide Allergy Unknown Verified 08/27/21 08:49 Antibiotics) Childhood Physical Exam Vitals: Vital Signs Temp Pulse Pulse Resp BP Pulse Ox 08/27/21 13:47 61 16 129/55 96 08/27/21 13:31 58 L 16 124/58 96 08/27/21 13:16 52 L 18 99/54 96 08/27/21 13:01 51 L 18 128/62 96 08/27/21 12:46 56 L 18 121/57 100 08/27/21 12:27 98 F 58 L 16 114/58 100 08/27/21 10:11 61 15 115/59 99 08/27/21 09:15 97.1 F L 69 16 127/61 95 Intake and Output 08/27/21 08/27/21 08/27/21 06:59 14:59 22:59 Intake Total 1151 Output Total 100 Balance 1051 Intake: IV 1151 Output: Estimated Blood Loss 100 Other: Weight 98.9 kg Results Labs: Abnormal Lab Results - Last 24 Hours (Table) 08/27/21 Range/Units 09:16 POC Glucose (mg/dL) 127 H (75-99) mg/dL
[2021-08-27 16:19] LABS: Glucose,Whole Blood 188 mg/dL (75-99)
--- NOTE | 2021-08-27 18:42 | P.ANPRN ---
Procedure Note - Anesthesia - Nerve Block Performed Left Adductor Canal Infusion Time Out Performed: Yes Date of Procedure: 08/27/21 Procedure Start Time: 09:48 Procedure Stop Time: 10:00 Location of Patient: PreOp Indication: Acute Post-Operative Pain, Requested by Surgeon Sedation Type: Sedate with meaningful contact maintained Preparation: Sterile Prep, Sterile Dressing Position: Supine Catheter: Indwelling Needle Types: [place]ajunk Needle Gauge: 21 Ultrasound used to visualize needle placement: Yes Ultrasound used to observe medication spread: Yes Blood Aspirated: No Pain Paresthesia on Injection Noted: No Resistance on Injection: Normal Image Stored and Saved: Yes Events: Uneventful and Well Tolerated (ropi .5% 20cc)
--- NOTE | 2021-08-27 18:43 | P.ANPRN ---
Procedure Note - Anesthesia - Nerve Block Performed Left iPack Single Time Out Performed: Yes Date of Procedure: 08/27/21 Procedure Start Time: 10:01 Procedure Stop Time: 10:06 Location of Patient: PreOp Indication: Acute Post-Operative Pain, Requested by Surgeon Sedation Type: Sedate with meaningful contact maintained Preparation: Sterile Prep Position: Supine Needle Types: [place]unk Needle Gauge: 21 Ultrasound used to visualize needle placement: Yes Ultrasound used to observe medication spread: Yes Blood Aspirated: No Pain Paresthesia on Injection Noted: No Resistance on Injection: Normal Image Stored and Saved: Yes Events: Uneventful and Well Tolerated (ropi .5% 20cc plus dexamethasone 4mg)
[2021-08-27] MEDS: ASPIRIN 81 MG PO SCH (20:21)
[2021-08-27] MEDS: metFORMIN 500 MG TAB PO SCH (20:21)
[2021-08-27 20:27] LABS: Glucose,Whole Blood 278 mg/dL (75-99)
[2021-08-27] MEDS ORDERED: SENNOSIDES-DOCUSATE SODIUM 1 EACH TAB PO SCH (21:00)
[2021-08-27] MEDS ORDERED: ATORVASTATIN 80 MG TAB PO SCH (21:00)
[2021-08-28] MEDS: LACTATED RINGERS 1,000 ML IV SCH ×3 (00:43→07:29)
[2021-08-28] MEDS ORDERED: LEVOTHYROXINE 88 MCG TAB PO SCH (06:30)
[2021-08-28 07:00] LABS: Glucose,Whole Blood 128 mg/dL (75-99)
[2021-08-28] MEDS: metFORMIN 500 MG TAB PO SCH (07:30)
[2021-08-28] MEDS: ASPIRIN 81 MG PO SCH (07:30)
--- NOTE | 2021-08-28 07:54 | P.PN ---
Progress Note - Text 08/28/21 706am 76-year-old male status post total knee replacement by Dr. Dalton. Patient has an On-Q pump for postop pain control with the solution running at 8 mL an hour with a VAS of 1. Dressing clean dry and intact. Plan to continue On-Q pump infusion
[2021-08-28 08:02] VITALS: BP 112/66; PULSE 64; RESP 18; TEMP 97.6
[2021-08-28] MEDS ORDERED: lisinopriL 5 MG TAB PO SCH (09:00)
[2021-08-28] MEDS ORDERED: SERTRALINE 25 MG TAB PO SCH (09:00)
[2021-08-28 09:19] LABS: Basophils # (A) 0.01 X 10*3/uL (0.00-0.10); Basophils % (A) 0.1 %; Eosinophils # (A) 0 X 10*3/uL (0.04-0.35); Eosinophils % (A) 0 %; HCT 32.3 % (39.6-50.0); HGB 9.3 g/dL (13.0-17.0); Lymphocytes # (A) 0.81 X 10*3/uL (0.90-5.00); Lymphocytes % (A) 6.6 %; MCH 25.5 pg (27.0-32.0); MCHC 28.8 g/dL (32.0-37.0); MCV 88.7 fL (80.0-97.0); Mean Platelet Volume 11.4 fL (9.5-12.2); Monocytes % (A) 7.3 %; Neutrophils # (A) 10.51 X 10*3/uL (1.80-7.70); Neutrophils % (A) 85.4 %; Platelet Count 152 X 10*3/uL (140-440); RBC 3.64 X 10*6/uL (4.40-5.60); RDW 15.5 % (11.5-14.5); WBC 12.31 X 10*3/uL (4.50-10.00)
--- NOTE | 2021-08-28 10:56 | P.DS ---
Providers Attending physician: Jose Angel Dalton Consults: 08/27/21 10:23 Consult Physician Routine Consulting Provider: Pedro Luis Holbrook Consult Reason/Comments: post op medical management Do you want consulting provider notified?: Yes Primary care physician: Pedro Luis Holbrook - Discharge Diagnosis(es) (1) Osteoarthritis of left knee Patient was admitted to the OR on 08/27/21 to undergo a left total knee arthroplasty. He had failed conservative measures as an outpatient and desired to proceed with elective surgery after given informed consent. He underwent the above procedure which he tolerated well without complication. Postoperative hospital course has remained without complication. On day of discharge he is afebrile, vital signs stable, labs within acceptable ranges, tolerating by mouth meds and diet, voiding without difficulty, positive flatus, denies abdominal pain or calf pain, pain is controlled on oral pain medication and has no new complaints. Wound is benign, neurovascular status is intact, calf is soft and n ontender, abdomen soft and nontender. Review of systems is negative for numbness, tingling, fever, chills, chest pain, shortness of breath, nausea, vomiting, dizziness, headaches, slurred speech or other. Current Visit: Yes Status: Acute Priority: Medium Procedures: Left TKA Patient Condition at Discharge: Good Plan - Discharge Summary Discharge Rx Participant: Yes New Discharge Prescriptions: New Docusate [Colace] 100 mg PO BID #60 capsule Aspirin [Adult Low Dose Aspirin EC] 81 mg PO BID #60 tab HYDROcodone/APAP 7.5-325MG [[place] 7.5-325] 1 - 2 each PO Q6HR PRN #42 tab PRN Reason: Pain No Action Enalapril Maleate [Vasotec] 2.5 mg PO DAILY Multivitamins, Thera [Multivitamin (formulary)] 1 tab PO DAILY Atorvastatin [Lipitor] 80 mg PO HS Levothyroxine Sodium [Synthroid] 88 mcg PO DAILY Aspirin [Adult Low Dose Aspirin EC] 81 mg PO DAILY Ipratropium Nebulized [Atrovent Nebulized 0.2 MG/ML] 0.5 mg INHALATION RT-Q6H PRN PRN Reason: Shortness Of Breath Albuterol Nebulized [Ventolin Nebulized] 2.5 mg INHALATION RT-TID PRN PRN Reason: Shortness Of Breath [place]-3 Fatty Acids/Fish Oil [Fish Oil 1,000 mg Softgel] 1 cap PO DAILY Cinnamon Bark [Cinnamon] 1,000 mg PO BID Fluticasone Propionate 110 Mcg [Flovent 110 Mcg Inhaler (Mhu)] 2 puff INHALATION RT-BID PRN PRN Reason: Shortness Of Breath Cetirizine HCl [Zyrtec] 10 mg PO DAILY PRN PRN Reason: Allergy Symptoms Sertraline [Zoloft] 25 mg PO DAILY Dapagliflozin Propanediol [Farxiga] 10 mg PO DAILY metFORMIN HCL [Glucophage] 1,000 mg PO BID Discharge Medication List Atorvastatin [Lipitor] 80 mg PO HS 11/28/14 [History] Enalapril Maleate [Vasotec] 2.5 mg PO DAILY 11/28/14 [History] Multivitamins, Thera [Multivitamin (formulary)] 1 tab PO DAILY 11/28/14 [History] Aspirin [Adult Low Dose Aspirin EC] 81 mg PO DAILY 08/14/17 [History] Levothyroxine Sodium [Synthroid] 88 mcg PO DAILY 08/14/17 [History] Albuterol Nebulized [Ventolin Nebulized] 2.5 mg INHALATION RT-TID PRN 08/11/19 [History] Cinnamon Bark [Cinnamon] 1,000 mg PO BID 08/11/19 [History] Fluticasone Propionate 110 Mcg [Flovent 110 Mcg Inhaler (Mhu)] 2 puff INHALATION RT-BID PRN 08/11/19 [History] Ipratropium Nebulized [Atrovent Nebulized 0.2 MG/ML] 0.5 mg INHALATION RT-Q6H PRN 08/11/19 [History] [place]-3 Fatty Acids/Fish Oil [Fish Oil 1,000 mg Softgel] 1 cap PO DAILY 08/11/19 [History] Cetirizine HCl [Zyrtec] 10 mg PO DAILY PRN 08/24/21 [History] Dapagliflozin Propanediol [Farxiga] 10 mg PO DAILY 08/24/21 [History] Sertraline [Zoloft] 25 mg PO DAILY 08/24/21 [History] metFORMIN HCL [Glucophage] 1,000 mg PO BID 08/24/21 [History] Aspirin [Adult Low Dose Aspirin EC] 81 mg PO BID #60 tab 08/28/21 [Rx] Docusate [Colace] 100 mg PO BID #60 capsule 08/28/21 [Rx] HYDROcodone/APAP 7.5-325MG [[place] 7.5-325] 1 - 2 each PO Q6HR PRN #42 tab 08/28/21 [Rx] Follow up Appointment(s)/Referral(s): Pedro Luis Holbrook MD [Primary Care Provider] - 1 Week [facility], [NON-STAFF] - ([facility] will call you to schedule your in home physical therapy visits. ) Jose Angel Dalton MD [STAFF PHYSICIAN] - 09/07/21 2:30 pm Ambulatory/Diagnostic Orders: [facility] [DME.AMB1] Location: None Selected Activity/Diet/Wound Care/Special Instructions: Weight bear as tolerated May shower after 3 days if no bleeding Keep wound clean and dry Take meds as directed F/U with Dr. Dalton in office Discharge Disposition: HOME WITH HOME HEALTH SERVICES
[2021-08-28] MEDS ORDERED: MULTIVITAMINS, THERA 1 EACH TAB PO SCH (12:00)
== END 2021-08-28 12:16 | disposition home health service (06) ==
LOC: OR 08:24 → 4SSUR 13:38 → OR 08-28 12:16
PROVIDERS: ATTEND Orthopaedic Surgery Sports Medicine
DX: M17.12 Unilateral primary osteoarthritis, left knee (principal); Z20.822 Contact with and (suspected) exposure to COVID-19
CPT/HCPCS: 27447; 64999; 64448; 76942; 87635; 73560; C1776; C1713; J2250; J1100; J0690 ×2; J2405; J2795; 85025

== ENCOUNTER → 2022-04-30 | Outpatient (CLI) | payer MEDICARE ==
--- NOTE | 2022-04-30 10:45 | XR ---
EXAMINATION TYPE: XR chest 2V DATE OF EXAM: 04/30/2022 COMPARISON: 11/09/2019 HISTORY: Shortness of breath TECHNIQUE: Frontal and lateral views of the chest are obtained. FINDINGS: Scattered senescent parenchymal changes noted. Hyperinflation compatible with COPD. There is increased density along the right cardiac border which is a new finding relative to prior ex amination. CT correlation recommended. Heart size is stable. Mediastinal structures are stable and grossly unremarkable. No evidence for hilar prominence. Degenerative changes dorsal spine. IMPRESSION: 1. There is increased density along the right cardiac border which is a new finding relative to prior examination. CT correlation recommended.
[2022-04-30 12:17] LABS: ALT 24 U/L (4-49); AST 35 U/L (17-59); African American GFR (CKD) 47 (>60 ml/min/1.73 sqM); Albumin 4.3 g/dL (3.5-5.0); Albumin/Globulin Ratio 1.4; Alkaline Phosphatase 128 U/L (38-126); Anion Gap 12 mmol/L; Blood Urea Nitrogen 28 mg/dL (9-20); Calcium 8.9 mg/dL (8.4-10.2); Carbon Dioxide 28 mmol/L (22-30); Chloride 101 mmol/L (98-107); Globulin 3.1 g/dL; Glucose 121 mg/dL (74-99); Non-African American GFR(CKD) 41 (>60 ml/min/1.73 sqM); Potassium 4.5 mmol/L (3.5-5.1); Sodium 141 mmol/L (137-145); Total Bilirubin 0.6 mg/dL (0.2-1.3); Total Protein 7.4 g/dL (6.3-8.2)
[2022-04-30 14:37] LABS: Basophils # (A) 0.02 X 10*3/uL (0.00-0.10); Basophils % (A) 0.3 %; Eosinophils # (A) 0.15 X 10*3/uL (0.04-0.35); Eosinophils % (A) 1.9 %; HCT 37.4 % (39.6-50.0); HGB 11.1 g/dL (13.0-17.0); Immature Grans, Automated 0.5 %; Lymphocytes # (A) 0.88 X 10*3/uL (0.90-5.00); Lymphocytes % (A) 11.4 %; MCH 25.6 pg (27.0-32.0); MCHC 29.7 g/dL (32.0-37.0); MCV 86.4 fL (80.0-97.0); Mean Platelet Volume 11.3 fL (9.5-12.2); Monocytes # (A) 0.52 X 10*3/uL (0.20-1.00); Monocytes % (A) 6.8 %; NRBC Per 100 WBC 0 /100 WBCS (0.0-0.0); Neutrophils # (A) 6.09 X 10*3/uL (1.80-7.70); Neutrophils % (A) 79.1 %; Platelet Count 147 X 10*3/uL (140-440); RBC 4.33 X 10*6/uL (4.40-5.60); RDW 17.2 % (11.5-14.5)
[2022-04-30 18:19] LABS: Chol/HDL Ratio 2.07 Ratio; LDL Cholesterol,Calculated 48.5 mg/dL (0.0-131.0)
== END | disposition home or self-care (01) ==
LOC: LABWHC1 09:35
PROVIDERS: ATTEND Internal Medicine Geriatric Medicine
DX: I26.99 Other pulmonary embolism without acute cor pulmonale (principal); E11.9 Type 2 diabetes mellitus without complications; I25.10 Atherosclerotic heart disease of native coronary artery without angina pectoris; R06.02 Shortness of breath
CPT/HCPCS: 36415; 71046; 80053; 80061; 83036; 84443; 85025; 85379

== ENCOUNTER → 2022-04-30 | Outpatient (CLI) | payer MEDICARE ==
--- NOTE | 2022-04-30 16:39 | CT ---
EXAMINATION TYPE: CT chest wo con DATE OF EXAM: 04/30/2022 COMPARISON: 10/11/2018 HISTORY: SOB, low O2 levels CT DLP: 732 mGycm, Automated exposure control for dose reduction was used. CONTRAST: Performed injected with 0 mL of Isovue 300. Per technologist, the physician is aware of the abnormal labs and requested a noncontrast CT chest for evaluation. TECHNIQUE: Axial images were obtained at 5 mm thick sections. Reconstructed images are reviewed on [facility] computer in the coronal plane. FINDINGS: Portion of the thyroid visualized is normal. No suspicious lung nodules or focal infiltrates are present. Pulmonary embolism cannot be evaluated with lack of contrast. Recommend nuclear medicine ventilation perfusion study if there is clinical concern for pulmonary embolism. No enlarged mediastinal or hilar adenopathy is evident. The ascending aorta diameter at the level o f the main pulmonary artery is 3.5 cm. The main pulmonary artery diameter at the bifurcation is 2.7 cm. Moderate coronary artery calcification is present. Limited CT sections are obtained through the upper abdomen. Left renal cysts are present. Small cyst present at the superior pole right kidney. IMPRESSIONS: 1. No acute pulmonary process noncontrast CT chest. 2.Pulmonary embolism cannot be evaluated with lack of contrast. Recommend nuclear medicine ventilatio n perfusion study if there is clinical concern for pulmonary embolism.
== END | disposition home or self-care (01) ==
LOC: RADCTMAIN 14:37
PROVIDERS: ATTEND Internal Medicine Geriatric Medicine
DX: I26.99 Other pulmonary embolism without acute cor pulmonale (principal)
CPT/HCPCS: 71250; 82565; 84520

== ENCOUNTER → 2022-05-03 | Outpatient (CLI) | payer MEDICARE ==
--- NOTE | 2022-05-03 15:04 | XR ---
EXAMINATION TYPE: XR chest 2V DATE OF EXAM: 05/03/2022 2:44 PM COMPARISON: Chest radiograph 04/30/2022, CT chest 05/08/2022. TECHNIQUE: XR chest 2V Frontal and lateral views of the chest. CLINICAL INDICATION:Male, 77 years old with history of I26.99 PE; FINDINGS: Lungs/Pleura: There is no evidence of pleural effusion, focal consolidation, or pneumothorax. Pulmonary vascularity: Unremarkable. Heart/mediastinum: Cardiomediastinal silhouette is unremarkable. Atherosclerotic calcifications are seen in the aorta. Musculoskeletal: No acute osseous pathology. IMPRESSION: No acute cardiopulmonary disease/process.
--- NOTE | 2022-05-03 16:57 | NM ---
EXAMINATION TYPE: NM pul vent and perfuse DATE OF EXAM: 05/03/2022 COMPARISON: Chest radiograph 05/03/2022 HISTORY: Pulmonary embolism. TECHNIQUE: Utilizing inhalation of 39.8 mCi Tc 99m DTPA aerosol and intravenous injection of 4.7 mCi of Tc 99m MAA, ventilation and perfusion images are acquired post injection in multiple projections. FINDINGS: Extensive hotspots demonstrated throughout the perfusion and ventilation portions of the examination consistent with MAA clumping. IMPRESSION: Nondiagnostic examination due to MMA clumping.
== END | disposition home or self-care (01) ==
LOC: RADNMMAIN 14:24
PROVIDERS: ATTEND Internal Medicine Geriatric Medicine
DX: I26.99 Other pulmonary embolism without acute cor pulmonale (principal)
CPT/HCPCS: 71046; 78582; A9540; A9567

== ENCOUNTER 2022-07-28 13:16 | Inpatient (IN) | payer MEDICARE ==
[2022-07-28 14:21] LABS: Anisocytosis Slight; Basophils % (A) 0 %; Eosinophils # (A) 0.1 k/uL (0-0.7); Eosinophils % (A) 2 %; HCT 32.1 % (39.0-53.0); HGB 10.3 gm/dL (13.0-17.5); Hypochromasia Moderate; Lymphocytes % (A) 12 %; MCH 26.2 pg (25.0-35.0); MCHC 32.2 g/dL (31.0-37.0); MCV 81.5 fL (80.0-100.0); Mean Platelet Volume 8.8; Monocytes # (A) 0.4 k/uL (0-1.0); Monocytes % (A) 5 %; Neutrophils # (A) 6.7 k/uL (1.3-7.7); Neutrophils % (A) 80 %; Platelet Count 186 k/uL (150-450); Poikilocytosis Slight; RBC 3.94 m/uL (4.30-5.90); RDW 16.7 % (11.5-15.5); WBC 8.4 k/uL (3.8-10.6)
[2022-07-28 14:33] LABS: Partial Thromboplastin Time 26.4 sec (22.0-30.0); Prothrombin Time 10.6 sec (9.0-12.0)
[2022-07-28 14:36] LABS: Calcium 8.9 mg/dL (8.4-10.2); Magnesium 1.8 mg/dL (1.6-2.3); Potassium 4.6 mmol/L (3.5-5.1); Total Bilirubin 0.7 mg/dL (0.2-1.3); Total Protein 6.5 g/dL (6.3-8.2)
--- NOTE | 2022-07-28 14:45 | ED ---
Dizziness HPI - General Chief Complaint: Dizziness Stated Complaint: pain in back of head (lump), dizziness Time Seen by Provider: 07/28/22 13:45 Source: patient, RN notes reviewed Mode of arrival: ambulatory Limitations: no limitations - History of Present Illness Initial Comments: This a 77-year-old male presents emergency Department chief complaint of dizziness, confusion, lump on his head. Patient states his been having increasing lightheadedness for his been near syncopal. Patient states that he starts having increasing head pressure, pain and states that the lump on the back of his head. He states he saw his PCP who told a lipoma. Family reports the patient's been having bouts of confusion states that he is incoherent what he is doing has had some incontinent episodes. Patient denies having any chest pain shortness of breath. Patient does have history of throat cancer with radiation has chronic lymphedema of his right arm. Patient had an blood clot which is on eliquis states that this a few months ago. - Related Data Home Medications Medication Instructions Recorded Confirmed Atorvastatin [Lipitor] 80 mg PO HS 11/28/14 08/24/21 Enalapril Maleate [Vasotec] 2.5 mg PO DAILY 11/28/14 08/24/21 Multivitamins, Thera [Multivitamin 1 tab PO DAILY 11/28/14 08/24/21 (formulary)] Aspirin [Adult Low Dose Aspirin EC] 81 mg PO DAILY 08/14/17 08/24/21 Levothyroxine Sodium [Synthroid] 88 mcg PO DAILY 08/14/17 08/24/21 Albuterol Nebulized [Ventolin 2.5 mg INHALATION RT-TID PRN 08/11/19 08/24/21 Nebulized] Cinnamon Bark [Cinnamon] 1,000 mg PO BID 08/11/19 08/24/21 Fluticasone Propionate 110 Mcg 2 puff INHALATION RT-BID PRN 08/11/19 08/24/21 [Flovent 110 Mcg Inhaler] Ipratropium Nebulized [Atrovent 0.5 mg INHALATION RT-Q6H PRN 08/11/19 08/24/21 Nebulized 0.2 MG/ML] [place]-3 Fatty Acids/Fish Oil [Fish 1 cap PO DAILY 08/11/19 08/24/21 Oil 1,000 mg Softgel] Cetirizine HCl [Zyrtec] 10 mg PO DAILY PRN 08/24/21 08/24/21 Dapagliflozin Propanediol [Farxiga] 10 mg PO DAILY 08/24/21 08/24/21 Sertraline [Zoloft] 25 mg PO DAILY 08/24/21 08/24/21 metFORMIN HCL [Glucophage] 1,000 mg PO BID 08/24/21 08/24/21 Previous Rx's Medication Instructions Recorded Aspirin [Adult Low Dose Aspirin EC] 81 mg PO BID #60 tab 08/28/21 Docusate [Colace] 100 mg PO BID #60 capsule 08/28/21 HYDROcodone/APAP 7.5-325MG [[place] 1 - 2 each PO Q6HR PRN #42 tab 08/28/21 7.5-325] Sennosides-Docusate Sodium 2 each PO HS tab 08/28/21 [Senokot-S] Allergies Allergy/AdvReac Type Severity Reaction Status Date / Time Sulfa (Sulfonamide Allergy Unknown Verified 07/28/22 13:37 Antibiotics) Childhood Review of Systems ROS Statement: Those systems with pertinent positive or pertinent negative responses have been documented in the HPI. ROS Other: All systems not noted in ROS Statement are negative. Past Medical History Past Medical History: Coronary Artery Disease (CAD), Cancer, Chest Pain / Angina, COPD, Diabetes Mellitus, Hyperlipidemia, Myocardial Infarction ([place]), Musculoskeletal Disorder, Thyroid Disorder Additional Past Medical History / Comment(s): HX OF ESOPH[place]AL CANCER WITH RADIATION [place](2014), TINNITIS., FELL OUT OF ATTIC JUL 2017 AND HAS COMPRESSION FX l-2 (WEARING BACK SUPPORT) ., HAYFEVER ALLERGIES., HAVING DIFFICULTY SWALLOWING SOME FOODS. Stage 4 Throat CA Last Myocardial Infarction Date:: 2001 History of Any Multi-Drug Resistant Organisms: None Reported Past Surgical History: Heart Catheterization With Stent Additional Past Surgical History / Comment(s): cyst removal from back, Toe surgery (child) Past Anesthesia/Blood Transfusion Reactions: No Reported Reaction, Motion Sickness Additional Past Anesthesia/Blood Transfusion Reaction / Comment(s): dizziness when he closes his eyes in the shower. Date of Last Stent Placement:: 2001 Past Psychological History: No Psychological Hx Reported Smoking Status: Never smoker Past Alcohol Use History: Occasional Past Drug Use History: None Reported - Past Family History Father Family Medical History: Hypertension General Exam Limitations: no limitations General appearance: alert, in no apparent distress Head exam: Present: atraumatic, normocephalic, normal inspection Eye exam: Present: normal appearance, PERRL, EOMI. Absent: scleral icterus, conjunctival injection, periorbital swelling Neck exam: Present: normal inspection, full ROM. Absent: tenderness, meningismus, lymphadenopathy Respiratory exam: Present: normal lung sounds bilaterally. Absent: respiratory distress, wheezes, rales, rhonchi, stridor Cardiovascular Exam: Present: regular rate, normal rhythm, normal heart sounds. Absent: systolic murmur, diastolic murmur, rubs, gallop, clicks Neurological exam: Present: alert, oriented X3, CN II-XII intact, reflexes no rmal. Absent: motor sensory deficit Skin exam: Present: warm, dry, intact, normal color. Absent: rash Course Vital Signs 07/28/22 07/28/22 13:33 15:11 Temperature 97.6 F Pulse Rate 81 Pulse Rate [ 71 Leather Cartridge Belt Maker ] Respiratory 20 18 Rate Blood Pressure 92/50 Blood Pressure 82/42 [Left Arm Sitting] Blood Pressure 94/48 [Left Arm Supine] O2 Sat by Pulse 96 Oximetry EKG Findings - EKG Comments: EKG Findings:: EKG performed at 14:20 interpreted by me sinus rhythm rate of 78 CT 150 QRS 135 QT/QTC 397/431 - EKG Results: EKG: interpreted by LUCINA Medical Decision Making - Medical Decision Making 77-year-old male presented for lightheadedness, dizziness, head pain. Patient's found to be acutely dehydrated, orthostatic positive with hypertension, acute kidney injury. Patient was started on fluid bolus, maintenance fluids. Patient complaining worsening cephalgia. Patient be admitted for neurology evaluation. - Lab Data Result diagrams: 07/28/22 14:08 07/28/22 14:08 Lab Results 07/28/22 07/28/22 07/28/22 Range/Units 14:08 14:08 14:08 WBC 8.4 (3.8-10.6) k/uL RBC 3.94 L (4.30-5.90) m/uL Hgb 10.3 L (13.0-17.5) gm/dL Hct 32.1 L (39.0-53.0) % MCV 81.5 (80.0-100.0) fL MCH 26.2 (25.0-35.0) pg MCHC 32.2 (31.0-37.0) g/dL RDW 16.7 H (11.5-15.5) % Plt Count 186 (150-450) k/uL MPV 8.8 Neutrophils % 80 % Lymphocytes % 12 % Monocytes % 5 % Eosinophils % 2 % Basophils % 0 % Neutrophils # 6.7 (1.3-7.7) k/uL Lymphocytes # 1.0 (1.0-4.8) k/uL Monocytes # 0.4 (0-1.0) k/uL Eosinophils # 0.1 (0-0.7) k/uL Basophils # 0.0 (0-0.2) k/uL Hypochromasia Moderate Poikilocytosis Slight Anisocytosis Slight PT 10.6 (9.0-12.0) sec INR 1.0 (<1.2) APTT 26.4 (22.0-30.0) sec Sodium 137 (137-145) mmol/L Potassium 4.6 (3.5-5.1) mmol/L Chloride 104 (98-107) mmol/L Carbon Dioxide 20 L (22-30) mmol/L Anion Gap 13 mmol/L BUN 36 H (9-20) mg/dL Creatinine 2.10 H (0.66-1.25) mg/dL Est GFR (CKD-EPI)AfAm 35 (>60 ml/min/1.73 sqM) Est GFR (CKD-EPI)NonAf 30 (>60 ml/min/1.73 sqM) Glucose 195 H (74-99) mg/dL Calcium 8.9 (8.4-10.2) mg/dL Magnesium 1.8 (1.6-2.3) mg/dL Total Bilirubin 0.7 (0.2-1.3) mg/dL AST 25 (17-59) U/L ALT 26 (4-49) U/L Alkaline Phosphatase 111 (38-126) U/L Troponin I (0.000-0.034) ng/mL Total Protein 6.5 (6.3-8.2) g/dL Albumin 4.0 (3.5-5.0) g/dL 07/28/22 Range/Units 14:08 WBC (3.8-10.6) k/uL RBC (4.30-5.90) m/uL Hgb (13.0-17.5) gm/dL Hct (39.0-53.0) % MCV (80.0-100.0) fL MCH (25.0-35.0) pg MCHC (31.0-37.0) g/dL RDW (11.5-15.5) % Plt Count (150-450) k/uL MPV Neutrophils % % Lymphocytes % % Monocytes % % Eosinophils % % Basophils % % Neutrophils # (1.3-7.7) k/uL Lymphocytes # (1.0-4.8) k/uL Monocytes # (0-1.0) k/uL Eosinophils # (0-0.7) k/uL Basophils # (0-0.2) k/uL Hypochromasia Poikilocytosis Anisocytosis PT (9.0-12.0) sec INR (<1.2) APTT (22.0-30.0) sec Sodium (137-145) mmol/L Potassium (3.5-5.1) mmol/L Chloride (98-107) mmol/L Carbon Dioxide (22-30) mmol/L Anion Gap mmol/L BUN (9-20) mg/dL Creatinine (0.66-1.25) mg/dL Est GFR (CKD-EPI)AfAm (>60 ml/min/1.73 sqM) Est GFR (CKD-EPI)NonAf (>60 ml/min/1.73 sqM) Glucose (74-99) mg/dL Calcium (8.4-10.2) mg/dL Magnesium (1.6-2.3) mg/dL Total Bilirubin (0.2-1.3) mg/dL AST (17-59) U/L ALT (4-49) U/L Alkaline Phosphatase (38-126) U/L Troponin I <0.012 (0.000-0.034) ng/mL Total Protein (6.3-8.2) g/dL Albumin (3.5-5.0) g/dL Disposition Clinical Impression: Acute kidney injury, Dehydration, Orthostatic hypotension, Cephalgia, Intermittent confusion Disposition: ADMITTED IP TO THIS HOSP Condition: Fair Referrals: Pedro Luis Holbrook MD [Primary Care Provider] - 1-2 days Time of Disposition: 15:11
--- NOTE | 2022-07-28 14:47 | CT ---
EXAMINATION TYPE: CT brain wo con DATE OF EXAM: 07/28/2022 COMPARISON: None HISTORY: c/o dizziness and pain in back of head, no injury CT DLP: 1154.[address] of the brain was performed. The ventricles, basal cisterns and sulci overlying the cerebral convexities demonstrate mild to moder ate enlargement. There is no evidence for intracranial hemorrhage or sulcal effacement. There is decreased attenuation about the periventricular white matter and deep white matter of both c erebral hemispheres, compatible with chronic small vessel ischemia. Differential diagnosis does inclu de demyelination. No mass effects are seen.No midline shift. Osseous calvarium is intact. If symptoms persist consider MRI. IMPRESSION: 1. Age related atrophic and chronic small vessel ischemic change without acute intracranial process s een at this time.
[2022-07-28] MEDS ORDERED: ORPHENADRINE 30 MG/ML 2 ML VIAL IVP STA (15:00)
[2022-07-28] MEDS ORDERED: SODIUM CHLORIDE 0.9% 1,000 ML IV ONE (15:10)
[2022-07-28] MEDS ORDERED: NALOXONE 0.4 MG/ML 1 ML VIAL IV PRN (15:26)
[2022-07-28] MEDS ORDERED: ACETAMINOPHEN TAB 325 MG TAB PO PRN (15:34)
[2022-07-28] MEDS: SODIUM CHLORIDE 0.9% 1,000 ML IV SCH (16:28)
[2022-07-28 21:12] LABS: Glucose,Whole Blood 203 mg/dL (70-110)
[2022-07-29] MEDS: SODIUM CHLORIDE 0.9% 1,000 ML IV SCH ×2 (05:56→16:58)
[2022-07-29 06:04] LABS: Glucose,Whole Blood 137 mg/dL (70-110)
--- NOTE | 2022-07-29 09:49 | P.NPCON ---
History of Present Illness - Reason for Consult acute renal failure, chronic renal failure - History of Present Illness Reason for consultation: Acute kidney injury on chronic kidney disease History of present illness: Patient is a 77-year-old male seen in renal consultation for acute kidney injury on chronic kidney disease. Patient has chronic kidney disease stage IIIB with baseline creatinine near 1.5 dating back to December 2015. Patient does not follow with a feeder loader outpatient. Patient's creatinine on admission was 2.1. Patient came to the hospital due to dizziness and near syncopal episode. Patient states he was diagnosed with PE about 2 months ago and is maintained on anticoagulation. He denies chest pain or shortness of breath. Has been waiting. No hematuria or dysuria. Denies use of nonsteroidals. He does have long-standing history of diabetes. Also has history of coronary artery disease with cardiac stenting in the past. He was also on lisinopril as well as farxiga outpatient which are both currently held. Patient's blood pressure was low in the systolic 80s to 90s on admission and was 112/63 this morning. He is receiving normal saline at 75 mL an hour. Denies family history of renal disease. No fever or chills. Oral intake is fair. Vital signs are stable. General: Awake. No acute distress. HEENT: Head exam is unremarkable. LUNGS: Breath sounds decreased. HEART: Rate and Rhythm are regular. ABDOMEN: Soft, no distention. EXTREMITITES: No edema. Past Medical History Past Medical History: Coronary Artery Disease (CAD), Cancer, Chest Pain / Angina, COPD, Diabetes Mellitus, Hyperlipidemia, Myocardial Infarction ([place]), Musculoskeletal Disorder, Thyroid Disorder Additional Past Medical History / Comment(s): HX OF ESOPH[place]AL CANCER WITH RADIATION [place](2014), TINNITIS., FELL OUT OF ATTIC JUL 2017 AND HAS COMPRESSION FX l-2 (WEARING BACK SUPPORT) ., HAYFEVER ALLERGIES., HAVING DIFFICULTY SWALLOWING SOME FOODS. Stage 4 Throat CA Last Myocardial Infarction Date:: 2001 History of Any Multi-Drug Resistant Organisms: None Reported Past Surgical History: Heart Catheterization With Stent Additional Past Surgical History / Comment(s): cyst removal from back, Toe surgery (child) Past Anesthesia/Blood Transfusion Reactions: No Reported Reaction, Motion Sickness Additional Past Anesthesia/Blood Transfusion Reaction / Comment(s): dizziness when he closes his eyes in the shower. Date of Last Stent Placement:: 2001 Smoking Status: Former smoker - Past Family History Father Family Medical History: Hypertension Medications and Allergies Home Medications Medication Instructions Recorded Confirmed Type Atorvastatin [Lipitor] 80 mg PO HS 11/28/14 07/28/22 History Enalapril Maleate [Vasotec] 2.5 mg PO DAILY 11/28/14 07/28/22 History Multivitamins, Thera [Multivitamin 1 tab PO DAILY 11/28/14 07/28/22 History (formulary)] Aspirin [Adult Low Dose Aspirin EC] 81 mg PO DAILY 08/14/17 07/28/22 History Levothyroxine Sodium [Synthroid] 88 mcg PO DAILY 08/14/17 07/28/22 History Albuterol Nebulized [Ventolin 2.5 mg INHALATION RT-TID PRN 08/11/19 07/28/22 History Nebulized] Cinnamon Bark [Cinnamon] 1,000 mg PO BID 08/11/19 07/28/22 History Ipratropium Nebulized [Atrovent 0.5 mg INHALATION RT-Q6H PRN 08/11/19 07/28/22 History Nebulized 0.2 MG/ML] [place]-3 Fatty Acids/Fish Oil [Fish 1 cap PO DAILY 08/11/19 07/28/22 History Oil 1,000 mg Softgel] Dapagliflozin Propanediol [Farxiga] 10 mg PO DAILY 08/24/21 07/28/22 History Sertraline [Zoloft] 25 mg PO DAILY 08/24/21 07/28/22 History Albuterol Inhaler [Ventolin Hfa 2 puff INHALATION RT-Q6H PRN 07/28/22 07/28/22 History Inhaler] Apixaban [Eliquis] 5 mg PO BID 07/28/22 07/28/22 History Azelastine HCl 1 spray EA NOSTRIL BID 07/28/22 07/28/22 History Fluticasone/Umeclidin/Vilanter 1 puff INHALATION RT-DAILY 07/28/22 07/28/22 History [Oralia Ellipta 100-62.5-25] Tamsulosin HCl [Flomax] 0.4 mg PO DAILY 07/28/22 07/28/22 History sitaGLIPtin PHOS/metFORMIN HCL 1 tab PO BID-W/MEALS 07/28/22 07/28/22 History [Janumet 50-1,000 mg Tablet] Allergies Allergy/AdvReac Type Severity Reaction Status Date / Time Sulfa (Sulfonamide Allergy Unknown Verified 07/28/22 16:06 Antibiotics) Childhood Physical Exam Vitals: Vital Signs Temp Pulse Pulse Pulse Resp BP BP 07/29/22 08:52 07/29/22 08:00 97.4 F L 61 18 112/63 07/29/22 01:40 97.9 F 59 L 17 100/51 07/28/22 20:05 97.5 F L 70 16 135/67 07/28/22 17:25 98.1 F 65 17 136/59 07/28/22 16:38 68 16 99/64 07/28/22 15:11 71 18 82/42 07/28/22 13:33 97.6 F 81 20 92/50 BP Pulse Ox 07/29/22 08:52 93 L 07/29/22 08:00 98 07/29/22 01:40 97 07/28/22 20:05 96 07/28/22 17:25 98 07/28/22 16:38 98 07/28/22 15:11 94/48 07/28/22 13:33 96 Intake and Output 07/28/22 07/29/22 07/29/22 22:59 06:59 14:59 Intake Total 500 Balance 500 Intake: Oral 500 Other: # Voids 1 3 Weight 98.883 kg Results - Lab Results Most recent lab results Calcium 8.9 mg/dL (8.4-10.2) 07/28/22 14:08 Magnesium 1.8 mg/dL (1.6-2.3) 07/28/22 14:08 07/28/22 14:08 07/28/22 14:08 Assessment and Plan Plan: Assessment: 1. Acute kidney injury due to prerenal secondary to hypotension. Creatinine 2.1 on admission. 2. Chronic kidney disease stage IIIB with baseline creatinine near 1.5 secondary to nephrosclerosis. 3. Near syncopal episode secondary to hypotension. 4. Diabetes mellitus. 5. Anemia of chronic kidney disease. Rule out iron deficiency. Plan: Maintain IV fluids. Continue to hold antihypertensives as well as farxiga. Check urinalysis. Check renal ultrasound. Follow-up morning labs. Avoid nephrotoxins. Check iron studies. Thank you for the consultation. I will continue to follow the patient with you during his hospital stay.
--- NOTE | 2022-07-29 11:16 | P.CNNES ---
History of Present Illness Consult date: 07/29/22 Requesting physician: José Manuel Boudreaux Reason for Consult: confusion, cephalgia History of Present Illness: This is a 77-year-old gentleman with history of throat cancer with radiation and chemotherapy (both last 7 years ago), Pulmonary embolism on eliquis, coronary artery disease status post stent who presented emergency department because of shortness of breath, lightheadedness and confusion and a lump on his head. Some of the history is obtained from medical record. Per the ED note his family stated that he's been having increased confusion and he's been concordant and some incontinence episodes. Patient has been feeling lightheadedness and having near syncope episode upon attempting to stand up. Patient denies of any focal weakness, numbness, any visual disturbance. He states that he was having some pain in the left neck region and now he feels over the right and been going on for the past couple weeks. He denies of falls. It seems that per the ED note the his PCP felt the lump was the lipoma. He denies any history of seizures or stroke in the past. He states that he sometimes has leakage in the urine but denies being told that he had jerking of any extremities. He was told that he has a pulmonary embolism about 2 months ago and he's been on anticoagulation Patient is also on aspirin 81 mg at home. Currently he feels back to baseline and the nurse stated that the patient has been alert oriented the 4 and following commands appropriately. Some of the workup during this hospital visit consisted of: CT of the head is reported as age-related atrophy and chronic small vessel ischemic changes without acute intracranial process seen at this time. EKG is reported as right bundle branch block. At abnormal EKG. Her initial serum glucose is 195, creatinine is 2.10, BUN is 36. Other than that the rest of the chemistry panel is unremarkable. Review of Systems Review of system: The 12 point system was reviewed and apparent positive and negative per HPI. Past Medical History Past Medical History: Coronary Artery Disease (CAD), Cancer, Chest Pain / Angina, COPD, Diabetes Mellitus, Hyperlipidemia, Myocardial Infarction ([place]), Musculoskeletal Disorder, Thyroid Disorder Additional Past Medical History / Comment(s): HX OF ESOPH[place]AL CANCER WITH RADIATION [place](2014), TINNITIS., FELL OUT OF ATTIC JUL 2017 AND HAS COMPRESSION FX l-2 (WEARING BACK SUPPORT) ., HAYFEVER ALLERGIES., HAVING DIFFICULTY SWALLOWING SOME FOODS. Stage 4 Throat CA Last Myocardial Infarction Date:: 2001 History of Any Multi-Drug Resistant Organisms: None Reported Past Surgical History: Heart Catheterization With Stent Additional Past Surgical History / Comment(s): cyst removal from back, Toe surg keegan (child) Past Anesthesia/Blood Transfusion Reactions: No Reported Reaction, Motion Sickness Additional Past Anesthesia/Blood Transfusion Reaction / Comment(s): dizziness when he closes his eyes in the shower. Date of Last Stent Placement:: 2001 Smoking Status: Former smoker - Past Family History Father Family Medical History: Hypertension Medications and Allergies Home Medications Medication Instructions Recorded Confirmed Type Atorvastatin [Lipitor] 80 mg PO HS 11/28/14 07/28/22 History Enalapril Maleate [Vasotec] 2.5 mg PO DAILY 11/28/14 07/28/22 History Multivitamins, Thera [Multivitamin 1 tab PO DAILY 11/28/14 07/28/22 History (formulary)] Aspirin [Adult Low Dose Aspirin EC] 81 mg PO DAILY 08/14/17 07/28/22 History Levothyroxine Sodium [Synthroid] 88 mcg PO DAILY 08/14/17 07/28/22 History Albuterol Nebulized [Ventolin 2.5 mg INHALATION RT-TID PRN 08/11/19 07/28/22 History Nebulized] Cinnamon Bark [Cinnamon] 1,000 mg PO BID 08/11/19 07/28/22 History Ipratropium Nebulized [Atrovent 0.5 mg INHALATION RT-Q6H PRN 08/11/19 07/28/22 History Nebulized 0.2 MG/ML] [place]-3 Fatty Acids/Fish Oil [Fish 1 cap PO DAILY 08/11/19 07/28/22 History Oil 1,000 mg Softgel] Dapagliflozin Propanediol [Farxiga] 10 mg PO DAILY 08/24/21 07/28/22 History Sertraline [Zoloft] 25 mg PO DAILY 08/24/21 07/28/22 History Albuterol Inhaler [Ventolin Hfa 2 puff INHALATION RT-Q6H PRN 07/28/22 07/28/22 History Inhaler] Apixaban [Eliquis] 5 mg PO BID 07/28/22 07/28/22 History Azelastine HCl 1 spray EA NOSTRIL BID 07/28/22 07/28/22 History Fluticasone/Umeclidin/Vilanter 1 puff INHALATION RT-DAILY 07/28/22 07/28/22 History [Trelejody Ellipta 100-62.5-25] Tamsulosin HCl [Flomax] 0.4 mg PO DAILY 07/28/22 07/28/22 History sitaGLIPtin PHOS/metFORMIN HCL 1 tab PO BID-W/MEALS 07/28/22 07/28/22 History [Janumet 50-1,000 mg Tablet] Allergies Allergy/AdvReac Type Severity Reaction Status Date / Time Sulfa (Sulfonamide Allergy Unknown Verified 07/28/22 16:06 Antibiotics) Childhood Physical Examination - Vital Signs Vital Signs: Vital Signs Temp Pulse Pulse Pulse Resp BP BP 07/29/22 08:52 07/29/22 08:00 97.4 F L 61 18 112/63 07/29/22 01:40 97.9 F 59 L 17 100/51 07/28/22 20:05 97.5 F L 70 16 135/67 07/28/22 17:25 98.1 F 65 17 136/59 07/28/22 16:38 68 16 99/64 07/28/22 15:11 71 18 82/42 07/28/22 13:33 97.6 F 81 20 92/50 BP Pulse Ox 07/29/22 08:52 93 L 07/29/22 08:00 98 07/29/22 01:40 97 07/28/22 20:05 96 07/28/22 17:25 98 07/28/22 16:38 98 07/28/22 15:11 94/48 07/28/22 13:33 96 Intake and Output 07/28/22 07/29/22 07/29/22 22:59 06:59 14:59 Intake Total 500 Balance 500 Intake: Oral 500 Other: # Voids 1 3 Weight 98.883 kg GENERAL: The patient is lying in bed and is not in acute distress. CHEST: The heart rate is regular rate rhythm. No murmurs to auscultation. No carotid bruit bilaterally. LUNG: Clear to auscultation bilaterally no wheezing noted throughout. Not labored breathing. ABDOMEN/GI: Bowel sounds present in all 4 quadrants. No tenderness to palpation throughout. NEUROLOGICAL: Higher mental function: The patient is awake, alert, oriented to self, place and time. Patient is following commands. No aphasia and no neglect. Cranial nerves: The pupils are round, equal and reactive to light and accommodation. Visual heller are full to confrontation throughout. Extraocular movement is intact no nystagmus is noted. Facial sensation is normal to touch throughout. The facial strength is normal throughout. Hearing is normal bilaterally to hand rub. Tongue is midline and moved [id number] without any difficulty. No dysarthria is noted. Shoulder shrug is normal bilaterally. Motor: The strength is 5 over 5 throughout. Has lymphedema over the right upper extremity (old). Normal tone and bulk. Cerebellum: Normal finger to nose heel to aviles bilaterally. Sensation: Sensation is normal to touch throughout. Reflexes (right/left): 2+ throughout. Plantars are downgoing bilaterally. Results - Laboratory Findings CBC and BMP: 07/28/22 14:08 07/28/22 14:08 Abnormal Lab Findings: Abnormal Labs 07/28/22 07/28/22 07/28/22 14:08 14:08 21:11 RBC 3.94 L Hgb 10.3 L Hct 32.1 L RDW 16.7 H Carbon Dioxide 20 L BUN 36 H Creatinine 2.10 H Glucose 195 H POC Glucose (mg/dL) 203 H 07/29/22 06:03 RBC Hgb Hct RDW Carbon Dioxide BUN Creatinine Glucose POC Glucose (mg/dL) 137 H Assessment and Plan Assessment: Transient epiosodes of encephalopathy: Unknown exact etiology. But rule out brain mets especially with hx of esophageal cancer vs seizure. Currently back to baseline. Light-headedness with shortness of breath: Rule out any new DVT or orthostatic hypotension. He has hx of PE and on eliquis for past two months Acute kidney insufficiency History of stage 4 throat cancer post radiation and chemotherapy 7 years ago. History of Coronary artery disease s/p stent History of Pulmonary embolism on Eliquis Plan: I ordered MRI of the brain with and without to rule out brain metastases. Ordered routine EEG. I'll not start the patient on antiepileptic drugs unless there is a seizure on the EEG or any discharges. Ordered vitamin B12, folate, ammonia, TSH because of reported confusion. Every 4 hours neuro checks Orthostatic vitals are ordered and pending Nephrology team is consulted We'll defer the rest of the medical management to the primary team The plan is discussed with patient and primary team N.P. Thank you for the consultation. Time with Patient: Greater than 30
[2022-07-29 11:28] LABS: African American GFR (CKD) 41.7 (60.0-200.0); Anion Gap 12.3 mmol/L (10.00-18.00); BUN/Creat Ratio 17.94 Ratio (12.00-20.00); Blood Urea Nitrogen 32.3 mg/dL (9.0-27.0); Calcium 8.5 mg/dL (8.7-10.3); Carbon Dioxide 19.7 mmol/L (20.0-27.5); Potassium 4.7 mmol/L (3.5-5.5)
--- NOTE | 2022-07-29 11:49 | US ---
EXAMINATION TYPE: US kidneys/renal and bladder DATE OF EXAM: 07/29/2022 COMPARISON: NONE CLINICAL HISTORY: jorge. EXAM MEASUREMENTS: Right Kidney: 11.5 x 4.7 x 4.7 cm Left Kidney: 12.9 x 5.6 x 5.5 cm Patient of large body habitus, technically difficult study. Right Kidney: 2 cysts noted, largest measuring 1.9 x 2.2 x 1.6cm Left Kidney: multiple cysts, largest measuring 6.9 x 6.3 x 6.2cm, parapelvic cyst measuring 3.1 x 5.2 x 3.1 vs multiple cysts Bladder: wnl Urinary bladder is sonolucent. Posterior wall is unremarkable IMPRESSION: 1. Bilateral renal cysts
[2022-07-29] MEDS ORDERED: IPRATROPIUM 0.5 MG/2.5 ML NEBU INHALATION PRN (12:02)
[2022-07-29] MEDS ORDERED: ALBUTEROL NEBULIZED 2.5 MG/3 ML INHALATION PRN (12:02)
[2022-07-29 12:04] LABS: Glucose,Whole Blood 144 mg/dL (70-110)
[2022-07-29] MEDS: LEVOTHYROXINE 88 MCG TAB PO SCH (12:34)
--- NOTE | 2022-07-29 15:53 | MR ---
EXAMINATION TYPE: MR brain wo/w con DATE OF EXAM: 07/29/2022 COMPARISON: CT brain 1 day earlier HISTORY: Confusion, r/o brain mets. History of head and neck cancer TECHNIQUE: Multiplanar, multisequence images of the brain and brainstem is performed without and with IV contras t, utilizing 10 mL intravenous Gadavist . FINDINGS: Diffusion weighted images demonstrate no evidence of a recent infarct or other diffusion ab normality. There is fairly moderate ventricular and sulcal prominence with degree of ventricular prom inence slightly greater than expected for degree of sulcal effacement. Ventricular size stable from C T exam one day earlier. Multifocal and confluent areas of T2 hyperintensity are seen throughout the w heike matter bilaterally. Lesions are nonspecific in appearance and distribution. Midline structures demonstrate normal morphology. The craniocervical junction appears within normal limits. Post contrast images demonstrate no abnormal enhancement or enhancing masses.. The dural elva ous sinuses appear patent. The visualized sinuses are clear and the globes are intact. Nasal septum i s redemonstrated deviated to the left of midline. IMPRESSION: 1. No suspicious enhancing masses to suggest metastatic disease to the brain. 2. Mild to moderate diffuse cerebral atrophy and advanced nonspecific white matter changes favor prod uct of chronic small vessel ischemic change in patient of this age. Other etiologies cannot be exclud ed. Correlate clinically. Cannot entirely exclude a normal pressure hydrocephalus. Correlate clinical ly.
[2022-07-29] MEDS: IPRATROPIUM 0.5 MG/2.5 ML NEBU INHALATION SCH ×2 (16:14→19:49)
[2022-07-29 16:55] LABS: Glucose,Whole Blood 127 mg/dL (70-110)
[2022-07-29] MEDS: APIXABAN 5 MG TAB PO SCH ×2 (16:57→20:38)
[2022-07-29 17:48] LABS: % Iron Saturation 17.52 (15.00-50.00); Ferritin 13.7 ng/mL (22.0-322.0)
[2022-07-29] MEDS: SYMBICORT 80-4.5 MCG INHALER INHALATION SCH (19:49)
[2022-07-29 20:32] LABS: Glucose,Whole Blood 180 mg/dL (70-110)
[2022-07-29] MEDS ORDERED: ATORVASTATIN 80 MG TAB PO SCH (21:00)
--- NOTE | 2022-07-30 00:20 | P.HPIM ---
History of Present Illness H&P Date: 07/29/22 Chief Complaint: Dizziness and confusion Patient is a 76-year-old male with a known history of coronary artery disease status immunotherapy 7 years ago chronic lymphedema of the right arm. CT head showed age-related atrophic and chronic small vessel ischemic changes no acute intracranial process. EKG showed sinus rhythm Ultrasound of the bladder showed bilateral renal cysts. On admission blood pressure was 82/42, pulse 71 respiration 18 pulse ox 96% on room air. Laboratory data showed WBC 8.4 hemoglobin 10.3 and platelets 186 Sodium 137 potassium 4.6 chloride 104 bicarb is 20 BUN 36 and creatinine 2.1 Blood sugar is 195 level and use are not elevated Troponin x3 negative Transient episodes of confusion. Rule out intracranial metastasis. Recurrent falls likely due to orthostatic hypotension Acute kidney injury likely prerenal due to hypotension CKD stage III with baseline creatinine 1.5 Diabetes type 2 Hyperkalemia Normocytic anemia without iron deficiency. Stage IV throat cancer status postradiation and chemotherapy 7 years ago Poor oral intake History of PE has been on Eliquis. Plan: Patient with current on IV hydration. Monitor renal function. Orthostatic vitals were ordered. Nephrology and neurology is on board. Continue to hold blood pressure medications and follow-up closely. MRI of the brain was ordered to rule out metastatic lesions. Continue with home medications and follow-up closely. Prognosis guarded. Discussed with the family at bedside in detail Past Medical History Past Medical History: Coronary Artery Disease (CAD), Cancer, Chest Pain / Angina, COPD, Diabetes Mellitus, Hyperlipidemia, Myocardial Infarction ([place]), Musculoskeletal Disorder, Thyroid Disorder Additional Past Medical History / Comment(s): HX OF ESOPHAGEAL CANCER WITH RADIATION [place](2014), TINNITIS., FELL OUT OF ATTIC JUL 2017 AND HAS COMPRESSION FX l-2 (WEARING BACK SUPPORT) ., HAYFEVER ALLERGIES., HAVING DIFFICULTY SWALLOWING SOME FOODS. Stage 4 Throat CA Last Myocardial Infarction Date:: 2001 History of Any Multi-Drug Resistant Organisms: None Reported Past Surgical History: Heart Catheterization With Stent Additional Past Surgical History / Comment(s): cyst removal from back, Toe s urgery (child) Past Anesthesia/Blood Transfusion Reactions: No Reported Reaction, Motion Sickness Additional Past Anesthesia/Blood Transfusion Reaction / Comment(s): dizziness when he closes his eyes in the shower. Date of Last Stent Placement:: 2001 Smoking Status: Former smoker - Past Family History Father Family Medical History: Hypertension Medications and Allergies Home Medications Medication Instructions Recorded Confirmed Type Atorvastatin [Lipitor] 80 mg PO HS 11/28/14 07/28/22 History Enalapril Maleate [Vasotec] 2.5 mg PO DAILY 11/28/14 07/28/22 History Multivitamins, Thera [Multivitamin 1 tab PO DAILY 11/28/14 07/28/22 History (formulary)] Aspirin [Adult Low Dose Aspirin EC] 81 mg PO DAILY 08/14/17 07/28/22 History Levothyroxine Sodium [Synthroid] 88 mcg PO DAILY 08/14/17 07/28/22 History Albuterol Nebulized [Ventolin 2.5 mg INHALATION RT-TID PRN 08/11/19 07/28/22 History Nebulized] Cinnamon Bark [Cinnamon] 1,000 mg PO BID 08/11/19 07/28/22 History Ipratropium Nebulized [Atrovent 0.5 mg INHALATION RT-Q6H PRN 08/11/19 07/28/22 History Nebulized 0.2 MG/ML] Suches-3 Fatty Acids/Fish Oil [Fish 1 cap PO DAILY 08/11/19 07/28/22 History Oil 1,000 mg Softgel] Dapagliflozin Propanediol [Farxiga] 10 mg PO DAILY 08/24/21 07/28/22 History Sertraline [Zoloft] 25 mg PO DAILY 08/24/21 07/28/22 History Albuterol Inhaler [Ventolin Hfa 2 puff INHALATION RT-Q6H PRN 07/28/22 07/28/22 History Inhaler] Apixaban [Eliquis] 5 mg PO BID 07/28/22 07/28/22 History Azelastine HCl 1 spray EA NOSTRIL BID 07/28/22 07/28/22 History Fluticasone/Umeclidin/Vilanter 1 puff INHALATION RT-DAILY 07/28/22 07/28/22 History [Oralia [place] 100-62.5-25] Tamsulosin HCl [Flomax] 0.4 mg PO DAILY 07/28/22 07/28/22 History sitaGLIPtin PHOS/metFORMIN HCL 1 tab PO BID-W/MEALS 07/28/22 07/28/22 History [Janumet 50-1,000 mg Tablet] Allergies Allergy/AdvReac Type Severity Reaction Status Date / Time Sulfa (Sulfonamide Allergy Unknown Verified 07/28/22 16:06 Antibiotics) Childhood Physical Exam Vitals: Vital Signs Temp Pulse Pulse Pulse Resp BP BP 07/29/22 08:52 07/29/22 08:00 97.4 F L 61 18 112/63 07/29/22 01:40 97.9 F 59 L 17 100/51 07/28/22 20:05 97.5 F L 70 16 135/67 07/28/22 17:25 98.1 F 65 17 136/59 07/28/22 16:38 68 16 99/64 07/28/22 15:11 71 18 82/42 07/28/22 13:33 97.6 F 81 20 92/50 BP Pulse Ox 07/29/22 08:52 93 L 07/29/22 08:00 98 07/29/22 01:40 97 07/28/22 20:05 96 07/28/22 17:25 98 07/28/22 16:38 98 07/28/22 15:11 94/48 07/28/22 13:33 96 Intake and Output 07/28/22 07/29/22 07/29/22 22:59 06:59 14:59 Intake Total 500 Balance 500 Intake: Oral 500 Other: # Voids 1 3 Weight 98.883 kg Results CBC & Chem 7: 07/28/22 14:08 07/29/22 05:58 Labs: Abnormal Lab Results - Last 24 Hours (Table) 07/28/22 07/28/22 07/28/22 Range/Units 14:08 14:08 21:11 RBC 3.94 L (4.30-5.90) m/uL Hgb 10.3 L (13.0-17.5) gm/dL Hct 32.1 L (39.0-53.0) % RDW 16.7 H (11.5-15.5) % Carbon Dioxide 20 L (22-30) mmol/L BUN 36 H (9-20) mg/dL Creatinine 2.10 H (0.66-1.25) mg/dL Est GFR (CKD-EPI)AfAm (60.0-200.0) Est GFR (CKD-EPI)NonAf (60.0-200.0) Glucose 195 H (74-99) mg/dL POC Glucose (mg/dL) 203 H (70-110) mg/dL Calcium (8.7-10.3) mg/dL 07/29/22 07/29/22 Range/Units 05:58 06:03 RBC (4.30-5.90) m/uL Hgb (13.0-17.5) gm/dL Hct (39.0-53.0) % RDW (11.5-15.5) % Carbon Dioxide 19.7 L (22-30) mmol/L BUN 32.3 H (9-20) mg/dL Creatinine 1.8 H (0.66-1.25) mg/dL Est GFR (CKD-EPI)AfAm 41.7 L (60.0-200.0) Est GFR (CKD-EPI)NonAf 36.0 L (60.0-200.0) Glucose 128 H (74-99) mg/dL POC Glucose (mg/dL) 137 H (70-110) mg/dL Calcium 8.5 L (8.7-10.3) mg/dL Thrombosis Risk Factor Assmnt - DVT/VTE Prophylaxis DVT/VTE Prophylaxis: Pharmacologic Prophylaxis ordered - Choose All That Apply Any of the Below Risk Factors Present?: Yes Each Factor Represents 1 point: Obesity (BMI >25) Other Risk Factors: Yes Each Risk Factor Represents 3 Points: Age 75 years or older Thrombosis Risk Factor Assessment Total Risk Factor Score: 4 Thrombosis Risk Factor Assessment Level: Moderate Risk
[2022-07-30] MEDS: SODIUM CHLORIDE 0.9% 1,000 ML IV SCH (03:35)
[2022-07-30 06:11] LABS: Glucose,Whole Blood 151 mg/dL (70-110)
[2022-07-30 06:31] LABS: Appearance,Urine Clear (Clear); Bilirubin,Urine Negative (Negative); Blood,Urine Negative (Negative); Color,Urine Colorless; Glucose,Urine (UA) 3+ (Negative); Ketones,Urine Negative (Negative); Leukocyte Esterase,Urine Negative (Negative); Nitrite,Urine Negative (Negative); Protein,Urine Negative (Negative); Specific Gravity,Urine 1.008 (1.001-1.035); Urobilinogen,Urine <2.0 mg/dL (<2.0)
[2022-07-30] MEDS: LEVOTHYROXINE 88 MCG TAB PO SCH (07:24)
[2022-07-30] MEDS: APIXABAN 5 MG TAB PO SCH (07:24)
[2022-07-30 07:51] VITALS: TEMP 97.8
[2022-07-30] MEDS: IPRATROPIUM 0.5 MG/2.5 ML NEBU INHALATION SCH ×2 (07:55→11:58)
[2022-07-30] MEDS: SYMBICORT 80-4.5 MCG INHALER INHALATION SCH (07:55)
[2022-07-30] MEDS ORDERED: NON FORMULARY DRUG (Fluticasone/Umeclidin/Vilanter [Trelegy Ellipta 100-62.5-25] 1 EACH Bl INHALATION SCH (08:00)
[2022-07-30 08:42] LABS: Basophils # (A) 0.02 X 10*3/uL (0.00-0.10); Basophils % (A) 0.3 %; Eosinophils # (A) 0.15 X 10*3/uL (0.04-0.35); Eosinophils % (A) 1.9 %; HCT 30.9 % (39.6-50.0); HGB 9.1 g/dL (13.0-17.0); Immature Grans, Automated 1.1 %; Lymphocytes # (A) 1.55 X 10*3/uL (0.90-5.00); Lymphocytes % (A) 19.7 %; MCH 24.8 pg (27.0-32.0); MCHC 29.4 g/dL (32.0-37.0); MCV 84.2 fL (80.0-97.0); Mean Platelet Volume 10.3 fL (9.5-12.2); Monocytes # (A) 0.49 X 10*3/uL (0.20-1.00); Monocytes % (A) 6.2 %; NRBC Per 100 WBC 0 /100 WBCS (0.0-0.0); Neutrophils # (A) 5.56 X 10*3/uL (1.80-7.70); Neutrophils % (A) 70.8 %; Platelet Count 176 X 10*3/uL (140-440); RBC 3.67 X 10*6/uL (4.40-5.60); RDW 17.5 % (11.5-14.5); WBC 7.86 X 10*3/uL (4.50-10.00)
[2022-07-30 08:50] LABS: African American GFR (CKD) 44.7 (60.0-200.0); Anion Gap 11.2 mmol/L (10.00-18.00); BUN/Creat Ratio 15.94 Ratio (12.00-20.00); Blood Urea Nitrogen 27.1 mg/dL (9.0-27.0); Calcium 8.7 mg/dL (8.7-10.3); Carbon Dioxide 18.8 mmol/L (20.0-27.5); Magnesium 1.9 mg/dL (1.5-2.4); Non-African American GFR(CKD) 38.6 (60.0-200.0); Potassium 4.9 mmol/L (3.5-5.5)
[2022-07-30] MEDS ORDERED: SERTRALINE 25 MG TAB PO SCH (09:00)
[2022-07-30] MEDS ORDERED: TAMSULOSIN 0.4 MG CAP.ER.24H PO SCH (09:00)
[2022-07-30] MEDS ORDERED: ASPIRIN 81 MG PO SCH (09:00)
--- NOTE | 2022-07-30 10:24 | P.PN ---
Subjective Patient is seen in follow-up for acute kidney injury on chronic kidney disease. Renal function improved. Blood pressure stable. Room air. Good urine output. Oral intake is good. Vital signs are stable. General: Awake. No acute distress. HEENT: Head exam is unremarkable. LUNGS: Breath sounds decreased. HEART: Rate and Rhythm are regular. ABDOMEN: Soft, no distention. EXTREMITITES: No edema. Objective - Vital Signs Vital signs: Vital Signs Temp 97.8 F 07/30/22 07:50 Pulse 82 07/30/22 08:06 Resp 18 07/30/22 08:06 BP 144/75 07/30/22 07:50 Pulse Ox 99 07/30/22 07:56 FiO2 Intake & Output 07/29/22 07/30/22 07/30/22 18:59 06:59 18:59 Other: Voiding Method Toilet Toilet Toilet # Voids 5 2 - Labs CBC & Chem 7: 07/30/22 06:21 07/30/22 06:21 Labs: Abnormal Lab Results - Last 24 Hours (Table) 07/29/22 07/29/22 07/29/22 Range/Units 05:58 05:58 12:01 RBC (4.40-5.60) X 10*6/uL Hgb (13.0-17.0) g/dL Hct (39.6-50.0) % MCH (27.0-32.0) pg MCHC (32.0-37.0) g/dL RDW (11.5-14.5) % Immature Gran # (0.00-0.04) X 10*3/uL Carbon Dioxide 19.7 L (20.0-27.5) mmol/L BUN 32.3 H (9.0-27.0) mg/dL Creatinine 1.8 H (0.6-1.5) mg/dL Est GFR (CKD-EPI)AfAm 41.7 L (60.0-200.0) Est GFR (CKD-EPI)NonAf 36.0 L (60.0-200.0) Glucose 128 H (70-110) mg/dL POC Glucose (mg/dL) 144 H (70-110) mg/dL Calcium 8.5 L (8.7-10.3) mg/dL Iron 61 L (65-175) ug/dL Ferritin 13.7 L (22.0-322.0) ng/mL Urine Glucose (UA) (Negative) 07/29/22 07/29/22 07/30/22 Range/Units 16:53 20:31 05:30 RBC (4.40-5.60) X 10*6/uL Hgb (13.0-17.0) g/dL Hct (39.6-50.0) % MCH (27.0-32.0) pg MCHC (32.0-37.0) g/dL RDW (11.5-14.5) % Immature Gran # (0.00-0.04) X 10*3/uL Carbon Dioxide (20.0-27.5) mmol/L BUN (9.0-27.0) mg/dL Creatinine (0.6-1.5) mg/dL Est GFR (CKD-EPI)AfAm (60.0-200.0) Est GFR (CKD-EPI)NonAf (60.0-200.0) Glucose (70-110) mg/dL POC Glucose (mg/dL) 127 H 180 H (70-110) mg/dL Calcium (8.7-10.3) mg/dL Iron (65-175) ug/dL Ferritin (22.0-322.0) ng/mL Urine Glucose (UA) 3+ H (Negative) 07/30/22 07/30/22 07/30/22 Range/Units 06:10 06:21 06:21 RBC 3.67 L (4.40-5.60) X 10*6/uL Hgb 9.1 L (13.0-17.0) g/dL Hct 30.9 L (39.6-50.0) % MCH 24.8 L (27.0-32.0) pg MCHC 29.4 L (32.0-37.0) g/dL RDW 17.5 H (11.5-14.5) % Immature Gran # 0.09 H (0.00-0.04) X 10*3/uL Carbon Dioxide 18.8 L (20.0-27.5) mmol/L BUN 27.1 H (9.0-27.0) mg/dL Creatinine 1.7 H (0.6-1.5) mg/dL Est GFR (CKD-EPI)AfAm 44.7 L (60.0-200.0) Est GFR (CKD-EPI)NonAf 38.6 L (60.0-200.0) Glucose 143 H (70-110) mg/dL POC Glucose (mg/dL) 151 H (70-110) mg/dL Calcium (8.7-10.3) mg/dL Iron (65-175) ug/dL Ferritin (22.0-322.0) ng/mL Urine Glucose (UA) (Negative) Assessment and Plan Plan: Assessment: 1. Acute kidney injury due to prerenal secondary to hypotension. Creatinine 2.1 on admission - 1.7 today. UA benign. No hydronephrosis noted on kidney ultrasound. 2. Chronic kidney disease stage IIIB with baseline creatinine near 1.5 secondary to nephrosclerosis. 3. Near syncopal episode secondary to hypotension. Improved. 4. Diabetes mellitus. 5. Anemia of chronic kidney disease. Iron deficiency noted. 6. Metabolic acidosis secondary to acute kidney injury and IV fluids. Plan: Hep-Lock IV fluids. IV iron today. Avoid nephrotoxins. Check orthostatic vital signs. If standing blood pressure greater than 120/70, can resume for farxiga at lower dose of 5 mg once daily. Hold off on LORNA inhibitor for now. Add oral bicarbonate. Repeat BMP and magnesium level 2-3 days postdischarge. Follow up outpatient in 1 week.
[2022-07-30] MEDS ORDERED: SODIUM BICARBONATE TAB 650 MG TAB PO SCH (10:30)
[2022-07-30 10:38] VITALS: BP 137/78
--- NOTE | 2022-07-30 10:59 | EEG ---
ELECTROENCEPHALOGRAM REPORT CLINICAL HISTORY: This is a 77-year-old gentleman with presyncopal episode. The video EEG is obtained to evaluate for seizure epileptiform activity. RELEVANT MEDICATION: The patient is not on any antiepileptic drug. EEG TYPE: A routine 21-channel EEG is performed with video using the 10/20 electrode placement system. DESCRIPTION: Wakefulness is only obtained. During awake state, the posterior-dominant rhythm consists of [id number] voltage of 9 to 10 hertz activity that is well modulated and well sustained. There is no physiological stage 2 sleep architecture. There is no focal slowing. Interictal and ictal is none. ACTIVATION PROCEDURE: Photic stimulation did not evoke a posterior driving response. There is no abnormality during the photic stimulation. Hyperventilation is not performed. CLINICAL INTERPRETATION: This is a normal routine EEG. There is no focal slowing, epileptiform discharge, or seizure on the EEG. A normal routine EEG does not exclude underlying epilepsy. Clinical correlation is recommended. [email or web address] / IJKailash: [id number] /
[2022-07-30 11:31] LABS: Glucose,Whole Blood 162 mg/dL (70-110)
[2022-07-30 12:00] VITALS: PULSE 80; RESP 16
[2022-07-30] MEDS ORDERED: SODIUM FERRIC GLUCONAT-SUCROSE 125 MG in SODIUM CHLORIDE 0.9% 100 ML IVPB ONE (12:00)
[2022-07-30] MEDS ORDERED: ALBUTEROL HFA INHALER INHALATION PRN (12:16)
[2022-07-30] MEDS ORDERED: ALBUTEROL NEBULIZED 2.5 MG/3 ML INHALATION PRN (12:27)
[2022-07-30] MEDS ORDERED: TIOTROPIUM 2.5 MCG INHALER INHALATION SCH (13:00)
[2022-07-30] MEDS ORDERED: CYANOCOBALAMIN 1,000 MCG/ML 1 ML VIAL IM ONE (13:10)
--- NOTE | 2022-07-30 13:11 | P.PN ---
Subjective Progress Note Date: 07/30/22 The patient is seen at bedside and states he is doing well. Denies of any new neurological issues. He feels he is back to baseline. Per nurse no issues. Objective - Vital Signs Vital signs: Vital Signs Temp 97.8 F 07/30/22 07:50 Pulse 80 07/30/22 12:08 Resp 16 07/30/22 12:08 BP 137/78 07/30/22 10:37 Pulse Ox 99 07/30/22 07:56 FiO2 Intake & Output 07/29/22 07/30/22 07/30/22 18:59 06:59 18:59 Other: Voiding Method Toilet Toilet Toilet # Voids 5 2 - Exam GENERAL: The patient is lying in bed and is not in acute distress. NEUROLOGICAL: Higher mental function: The patient is awake, alert, oriented to self, place and time. Patient is following commands. No aphasia and no neglect. Cranial nerves: The pupils are round, equal and reactive to light and accommodation. Visual heller are full to confrontation throughout. Extraocular movement is intact no nystagmus is noted. Facial sensation is normal to touch throughout. The facial strength is normal throughout. Hearing is normal bilaterally to hand rub. Tongue is midline and moved [id number] without any difficulty. No dysarthria is noted. Shoulder shrug is normal bilaterally. Motor: The strength is 5 over 5 throughout. Has lymphedema over the right upper extremity (old). Normal tone and bulk. Cerebellum: Normal finger to nose heel to aviles bilaterally. Sensation: Sensation is normal to touch throughout. Reflexes (right/left): 2+ throughout. Plantars are downgoing bilaterally. Some of the workup during this hospital visit consisted of: CT of the head is reported as age-related atrophy and chronic small vessel ischemic changes without acute intracranial process seen at this time. EKG is reported as right bundle branch block. At abnormal EKG. Vitamin B12: 344 Serum folate is 28.3 TSH: 1.680 Ammonia <9 MRI Brain w/ and w/o: There is no suspicious enhancing masses to suggest metastatic disease to the brain. Mild to moderate diffuse cerebral atrophy and advanced nonspecific white matter changes favor product of chronic small vessel ischemic changes in patient of this age. Other etiologies cannot be excluded. Correlate clinically. Cannot exclude a normal pressure hydrocephalus. Correlate clinically. Routine EEG: Normal. There is no focal slwoing, epileptiform discharges or seizure on the EEG. - Labs CBC & Chem 7: 07/30/22 06:21 07/30/22 06:21 Labs: Abnormal Lab Results - Last 24 Hours (Table) 07/29/22 07/29/22 07/29/22 Range/Units 05:58 16:53 20:31 RBC (4.40-5.60) X 10*6/uL Hgb (13.0-17.0) g/dL Hct (39.6-50.0) % MCH (27.0-32.0) pg MCHC (32.0-37.0) g/dL RDW (11.5-14.5) % Immature Gran # (0.00-0.04) X 10*3/uL Carbon Dioxide (20.0-27.5) mmol/L BUN (9.0-27.0) mg/dL Creatinine (0.6-1.5) mg/dL Est GFR (CKD-EPI)AfAm (60.0-200.0) Est GFR (CKD-EPI)NonAf (60.0-200.0) Glucose (70-110) mg/dL POC Glucose (mg/dL) 127 H 180 H (70-110) mg/dL Iron 61 L (65-175) ug/dL Ferritin 13.7 L (22.0-322.0) ng/mL Urine Glucose (UA) (Negative) 07/30/22 07/30/22 07/30/22 Range/Units 05:30 06:10 06:21 RBC (4.40-5.60) X 10*6/uL Hgb (13.0-17.0) g/dL Hct (39.6-50.0) % MCH (27.0-32.0) pg MCHC (32.0-37.0) g/dL RDW (11.5-14.5) % Immature Gran # (0.00-0.04) X 10*3/uL Carbon Dioxide 18.8 L (20.0-27.5) mmol/L BUN 27.1 H (9.0-27.0) mg/dL Creatinine 1.7 H (0.6-1.5) mg/dL Est GFR (CKD-EPI)AfAm 44.7 L (60.0-200.0) Est GFR (CKD-EPI)NonAf 38.6 L (60.0-200.0) Glucose 143 H (70-110) mg/dL POC Glucose (mg/dL) 151 H (70-110) mg/dL Iron (65-175) ug/dL Ferritin (22.0-322.0) ng/mL Urine Glucose (UA) 3+ H (Negative) 07/30/22 07/30/22 Range/Units 06:21 11:29 RBC 3.67 L (4.40-5.60) X 10*6/uL Hgb 9.1 L (13.0-17.0) g/dL Hct 30.9 L (39.6-50.0) % MCH 24.8 L (27.0-32.0) pg MCHC 29.4 L (32.0-37.0) g/dL RDW 17.5 H (11.5-14.5) % Immature Gran # 0.09 H (0.00-0.04) X 10*3/uL Carbon Dioxide (20.0-27.5) mmol/L BUN (9.0-27.0) mg/dL Creatinine (0.6-1.5) mg/dL Est GFR (CKD-EPI)AfAm (60.0-200.0) Est GFR (CKD-EPI)NonAf (60.0-200.0) Glucose (70-110) mg/dL POC Glucose (mg/dL) 162 H (70-110) mg/dL Iron (65-175) ug/dL Ferritin (22.0-322.0) ng/mL Urine Glucose (UA) (Negative) Assessment and Plan Assessment: Transient epiosodes of encephalopathy: Unknown exact etiology---Currently back to baseline. MRI brain is negative for stroke or mets. EEG is normal. Light-headedness with shortness of breath: Rule out any new DVT or orthostatic hypotension. He has hx of PE and on eliquis for past two months Acute kidney insufficiency History of stage 4 throat cancer post radiation and chemotherapy 7 years ago. History of Coronary artery disease s/p stent History of Pulmonary embolism on Eliquis Plan: MRI Brain w/ and w/o: There is no suspicious enhancing masses to suggest metastatic disease to the brain. Mild to moderate diffuse cerebral atrophy and advanced nonspecific white matter changes favor product of chronic small vessel ischemic changes in patient of this age. Other etiologies cannot be excluded. Correlate clinically. Cannot exclude a normal pressure hydrocephalus. Correlate clinically. Recommend work-up of questionable Normal Pressure hydrocephalus as outpatient (recommend large volume tap and if improvement in confusion and gait) then recommend GLAZE MIXER shunt. Has low normal Vitamin B12, therefore started on Vitamin B12 1000mcg IM once then after that PO daily. Recommend consideration of MRI C-spine as outpatient if has any further falls. Every 4 hours neuro checks Orthostatic vitals are negative. Nephrology team is consulted We'll defer the rest of the medical management to the primary team. Recommend Patient to follow-up with neurologist as outpatient within 1-2 weeks. The plan is discussed with patient and his nurse. Otherwise no other work-up from neurological perspective. Please notify neurology if any further concerns. Time with Patient: Less than 30
[2022-07-30] MEDS ORDERED: IPRATROPIUM 0.5 MG/2.5 ML NEBU INHALATION SCH (16:00)
[2022-07-31] MEDS ORDERED: DAPAGLIFLOZIN PROPANEDIOL 10 MG TABLET PO SCH (09:00)
[2022-07-31] MEDS ORDERED: DAPAGLIFLOZIN PROPANEDIOL 5 MG TABLET PO SCH (09:00)
[2022-07-31] MEDS ORDERED: CYANOCOBALAMIN 500 MCG TAB PO SCH (09:00)
== END 2022-07-30 16:28 | disposition home or self-care (01) | DRG 683 ==
LOC: EC 13:16 → 4SSUR 15:34
PROVIDERS: ADMIT Internal Medicine; ATTEND Internal Medicine
DX: N17.9 Acute kidney failure, unspecified (principal); E87.20 Acidosis, unspecified; G93.40 Encephalopathy, unspecified; I95.1 Orthostatic hypotension; I12.9 Hypertensive chronic kidney disease with stage 1 through stage 4 chronic kidney disease, or unspecified chronic kidney disease; D17.9 Benign lipomatous neoplasm, unspecified; D63.1 Anemia in chronic kidney disease; E11.22 Type 2 diabetes mellitus with diabetic chronic kidney disease; D50.9 Iron deficiency anemia, unspecified; E78.5 Hyperlipidemia, unspecified; E86.0 Dehydration; E87.5 Hyperkalemia; I25.10 Atherosclerotic heart disease of native coronary artery without angina pectoris; I25.2 Old myocardial infarction; I45.10 Unspecified right bundle-branch block; J44.9 Chronic obstructive pulmonary disease, unspecified; N18.32 Chronic kidney disease, stage 3b; R51.9 Headache, unspecified; E66.9 Obesity, unspecified; E03.9 Hypothyroidism, unspecified; N28.1 Cyst of kidney, acquired; R13.10 Dysphagia, unspecified; R29.6 Repeated falls; Z68.30 Body mass index [BMI] 30.0-30.9, adult; R32 Unspecified urinary incontinence; H93.19 Tinnitus, unspecified ear; Z79.01 Long term (current) use of anticoagulants; Z79.82 Long term (current) use of aspirin; Z79.84 Long term (current) use of oral hypoglycemic drugs; Z79.890 Hormone replacement therapy; Z79.899 Other long term (current) drug therapy; Z82.49 Family history of ischemic heart disease and other diseases of the circulatory system; Z85.01 Personal history of malignant neoplasm of esophagus; Z86.711 Personal history of pulmonary embolism; Z87.891 Personal history of nicotine dependence; Z92.21 Personal history of antineoplastic chemotherapy; Z95.5 Presence of coronary angioplasty implant and graft; Z87.81 Personal history of (healed) traumatic fracture; Z92.3 Personal history of irradiation; Z91.81 History of falling
CPT/HCPCS: 36415; 70450; 70553; 76770; 80048; 80053; 81003; 82140; 82607; 82728; 82746; 83540; 83550; 83735; 84443; 84484; 85025; 85610; 85730; 93005; 94640; 94760; 95816; 96361; 96374; 99285

== ENCOUNTER → 2024-09-25 | Outpatient (CLI) | payer MEDICARE ==
--- NOTE | 2024-09-25 11:33 | US ---
EXAMINATION TYPE: US kidneys/renal and bladder DATE OF EXAM: 09/25/2024 COMPARISON: Prior renal ultrasound July 29, 2022 CLINICAL INDICATION: Male, 79 years old with history of N18.32 CKD STAGE 3D; CKD TECHNIQUE: Grayscale imaging of the bilateral kidneys and urinary bladder: FINDINGS: EXAM MEASUREMENTS: Right Kidney: 11.7x5.3x5.3 cm Left Kidney: 12.9x5.1x5.0 cm Right Kidney: several cysts, largest measures 2.4x1.8x2.0cm Left Kidney: several cysts, largest measures 6.5x6.0x6.7cm Bladder: wnl Bilateral Jets seen: Yes There is no evidence for hydronephrosis at this point in time. No nephrolithiasis is seen. Increased cortical echogenicity bilaterally. The urinary bladder is not greatly distended. exam limited by bowel and body habitus IMPRESSION: Suboptimal study. Evidence of chronic medical renal disease. No hydronephrosis is noted bilaterally. [facility], , 09/25/2024 11:30 AM
[2024-09-25 15:52] LABS: Basophils # (A) 0.02 X 10*3/uL (0.00-0.10); Basophils % (A) 0.2 %; Eosinophils # (A) 0.13 X 10*3/uL (0.04-0.35); Eosinophils % (A) 1.5 %; HCT 38.2 % (39.6-50.0); HGB 11.7 g/dL (13.0-17.0); Lymphocytes # (A) 0.94 X 10*3/uL (0.90-5.00); Lymphocytes % (A) 10.5 %; MCH 26.7 pg (27.0-32.0); MCHC 30.6 g/dL (32.0-37.0); MCV 87.2 FL (80.0-97.0); Mean Platelet Volume 12.2 FL (9.5-12.2); Monocytes # (A) 0.57 X 10*3/uL (0.20-1.00); Monocytes % (A) 6.4 %; NRBC Per 100 WBC 0 X 10*3/uL (0.00-0.01); Neutrophils # (A) 7.21 X 10*3/uL (1.80-7.70); Neutrophils % (A) 80.6 %; Platelet Count 165 X 10*3/uL (140-440); RBC 4.38 X 10*6/uL (4.40-5.60); RDW 16.5 % (11.5-14.5); WBC 8.94 X 10*3/uL (4.50-10.00)
[2024-09-25 16:13] LABS: % Iron Saturation 19.11 (15.00-50.00); ALT 30 U/L (10-49); AST 18 U/L (14-35); Albumin 4.4 g/dL (3.8-4.9); Albumin/Globulin Ratio 1.76 Ratio (1.60-3.17); Alkaline Phosphatase 165 U/L (41-126); BUN/Creat Ratio 17.24 Ratio (12.00-20.00); Blood Urea Nitrogen 36.2 mg/dL (9.0-27.0); Carbon Dioxide 20.6 mmol/L (21.6-31.8); Chloride 104 mmol/L (96-109); Globulin 2.5 g/dL (1.6-3.3); Glucose 168 mg/dL (70-110); Iron 69 UG/DL (65-175); Magnesium 1.8 mg/dL (1.5-2.4); Phosphorus 3.6 mg/dL (2.4-5.1); Potassium 5.1 mmol/L (3.5-5.5); Sodium 140 mmol/L (135-145); Total Bilirubin 0.6 mg/dL (0.3-1.2); Total Iron Binding Capacity 361 UG/DL (228-460); Total Protein 6.9 g/dL (6.2-8.2); Uric Acid 6.3 mg/dL (3.7-8.7)
[2024-09-25 16:14] LABS: Ferritin 36.6 ng/mL (22.0-322.0)
[2024-09-25 16:36] LABS: Appearance,Urine Clear (Clear); Bilirubin,Urine Negative (Negative); Blood,Urine Negative (Negative); Color,Urine Yellow (Yellow); Ketones,Urine Trace (Negative); Nitrite,Urine Negative (Negative); Specific Gravity,Urine 1.021 (1.001-1.030); Urobilinogen,Urine 0.2 E.U./DL
[2024-09-25 20:55] LABS: Microalbumin Creatinine Ratio <11 mg/g Cr (0-30)
[2024-09-26 11:52] LABS: Free Kappa Lt Chain Qnt, Serum 6.27 mg/dL (0.33-1.94); Free Lambda Lt Chain Qnt, Seru 4.11 mg/dL (0.57-2.63)
== END | disposition home or self-care (01) ==
LOC: RADUSWWP 10:14
PROVIDERS: ATTEND Internal Medicine
DX: N18.32 Chronic kidney disease, stage 3b (principal); N28.89 Other specified disorders of kidney and ureter
CPT/HCPCS: 76770; 80053; 81003; 82043; 82306; 82570; 82728; 83540; 83550; 83735; 83883; 83970; 84100; 84166; 84550; 85025; 86334

== ENCOUNTER → 2024-10-09 | Outpatient (CLI) | payer MEDICARE ==
--- NOTE | 2024-10-09 18:05 | CT ---
EXAMINATION TYPE: CT abdomen wo con DATE OF EXAM: 10/09/2024 4:13 PM COMPARISON: 09/25/2024 ultrasound CLINICAL INDICATION: Male, 79 years old with history of S39.013A STRAIN OF MUSCLE, FASCIA AND TENDON OF PE, renal cysts TECHNIQUE: Axial images were obtained from above the diaphragm to the pubic rami in the axial plane a t 5 mm thick sections. Reconstructed images are reviewed on the computer in the coronal plane. CONTRAST: mL of . Study performed without Oral Contrast DLP: 529.9 mGycm, Automated exposure control for dose reduction was used. FINDINGS: Limited CT sections are obtained the lung bases. The lung bases are clear. CT ABDOMEN: Liver: Normal Spleen: Normal Pancreas: Normal Adrenal glands: The adrenal glands are normal. Gallbladder: Normal Kidneys: No masses are evident. No hydronephrosis is present. Multiple cysts are present on the tano ateral kidneys. The largest in the superior lateral pole right kidney measures 6.7 cm. Some peripelvi c cysts may be present on the left kidney. Cysts are present on the right kidney the largest measures 2.0 cm in the anterolateral upper pole. No renal stones are identified. Aorta: Vascular calcification is within the aorta. Inferior vena cava: Normal. Loops of bowel within the abdomen and pelvis are normal. The study is without oral contrast limiting bowel evaluation. IMPRESSION: 1. Multiple bilateral renal cysts. [facility], , 10/09/2024 6:03 PM
== END | disposition home or self-care (01) ==
LOC: RADCTMAIN 15:47
PROVIDERS: ATTEND Urology
DX: N28.1 Cyst of kidney, acquired (principal)
CPT/HCPCS: 74150

== ENCOUNTER → 2024-11-17 | Outpatient (CLI) | payer MEDICARE ==
[2024-11-18 06:41] LABS: HCT 36.4 % (39.6-50.0); HGB 11.1 g/dL (13.0-17.0); MCH 27.1 pg (27.0-32.0); MCHC 30.5 g/dL (32.0-37.0); MCV 88.8 FL (80.0-97.0); Mean Platelet Volume 12.5 FL (9.5-12.2); NRBC Per 100 WBC 0 X 10*3/uL (0.00-0.01); Platelet Count 174 X 10*3/uL (140-440); RDW 15.7 % (11.5-14.5); WBC 8.16 X 10*3/uL (4.50-10.00)
[2024-11-18 07:29] LABS: Appearance,Urine Clear (Clear); Bilirubin,Urine Negative (Negative); Blood,Urine Negative (Negative); Color,Urine Yellow (Yellow); Ketones,Urine Negative (Negative); Nitrite,Urine Negative (Negative); Specific Gravity,Urine 1.019 (1.001-1.030); Urobilinogen,Urine 0.2 E.U./DL
[2024-11-18 08:37] LABS: ALT 31 U/L (10-49); AST 22 U/L (14-35); Albumin 4.2 g/dL (3.8-4.9); Albumin/Globulin Ratio 1.83 Ratio (1.60-3.17); Alkaline Phosphatase 139 U/L (41-126); BUN/Creat Ratio 15.94 Ratio (12.00-20.00); Blood Urea Nitrogen 28.7 mg/dL (9.0-27.0); Calcium 8.9 mg/dL (8.7-10.3); Carbon Dioxide 18.5 mmol/L (21.6-31.8); Chloride 108 mmol/L (96-109); Ferritin 26.6 ng/mL (22.0-322.0); Globulin 2.3 g/dL (1.6-3.3); Glucose 144 mg/dL (70-110); Iron 60 UG/DL (65-175); Magnesium 1.9 mg/dL (1.5-2.4); Phosphorus 3.4 mg/dL (2.4-5.1); Sodium 141 mmol/L (135-145); Total Bilirubin 0.5 mg/dL (0.3-1.2); Total Iron Binding Capacity 353 UG/DL (228-460); Total Protein 6.5 g/dL (6.2-8.2); Uric Acid 6.1 mg/dL (3.7-8.7)
[2024-11-18 12:26] LABS: Microalbumin Creatinine Ratio <12 mg/g Cr (0-30)
== END | disposition home or self-care (01) ==
LOC: LABWHC1 10:53
PROVIDERS: ATTEND Internal Medicine
DX: N18.32 Chronic kidney disease, stage 3b (principal); D63.1 Anemia in chronic kidney disease; N39.0 Urinary tract infection, site not specified; E55.9 Vitamin D deficiency, unspecified; N25.81 Secondary hyperparathyroidism of renal origin; M10.9 Gout, unspecified; R80.9 Proteinuria, unspecified
CPT/HCPCS: 36415; 80053; 81003; 82043; 82306; 82570; 82728; 83540; 83550; 83735; 83970; 84100; 84550; 85027

== ENCOUNTER 2024-12-10 08:57 | Inpatient (IN) | payer MEDICARE ==
--- NOTE | 2024-12-10 09:36 | ED ---
General Adult HPI - General Chief complaint: Dizziness Stated complaint: dizziness Time Seen by Provider: 12/10/24 09:00 Source: patient, EMS, RN notes reviewed, old records reviewed Mode of arrival: EMS Limitations: no limitations - History of Present Illness Initial comments: This is a 79-year-old male who presents to the emergency department complaining that he woke up this morning he has been very dizzy. Patient states if he moves his head he feels like it gets worse but he also feels like he might pass out. Patient states he does not have any history of bradycardia. Patient states he does have a stent in his heart. Patient also states he has kidney failure. Patient states he is also had throat cancer in the past. Patient denies any ch est pain or palpitation. Patient denies any abdominal pain. Patient has nausea vomiting diarrhea. Patient states he has a posterior headache but he states he has had this for quite a while he has had actual shots in the back of his head he believes they were steroids on multiple occasions in the past. Patient denies any numbness or weakness - Related Data Home Medications Medication Instructions Recorded Confirmed Atorvastatin [Lipitor] 80 mg PO HS 11/28/14 07/28/22 Multivitamins, Thera [Multivitamin 1 tab PO DAILY 11/28/14 07/28/22 (formulary)] Aspirin [Adult Low Dose Aspirin EC] 81 mg PO DAILY 08/14/17 07/28/22 Levothyroxine Sodium [Synthroid] 88 mcg PO DAILY 08/14/17 07/28/22 Albuterol Nebulized [Ventolin 2.5 mg INHALATION RT-TID PRN 08/11/19 07/28/22 Nebulized] Cinnamon Bark [Cinnamon] 1,000 mg PO BID 08/11/19 07/28/22 Ipratropium Nebulized [Atrovent 0.5 mg INHALATION RT-Q6H PRN 08/11/19 07/28/22 Nebulized 0.2 MG/ML] [place]-3 Fatty Acids/Fish Oil [Fish 1 cap PO DAILY 08/11/19 07/28/22 Oil 1,000 mg Softgel] Sertraline [Zoloft] 25 mg PO DAILY 08/24/21 07/28/22 Albuterol Inhaler [Ventolin Hfa 2 puff INHALATION RT-Q6H PRN 07/28/22 07/28/22 Inhaler] Apixaban [Eliquis] 5 mg PO BID 07/28/22 07/28/22 Azelastine HCl [Astelin Nasal 1 spray EA NOSTRIL BID 07/28/22 07/28/22 [place]] Fluticasone/Umeclidin/Vilanter 1 puff INHALATION RT-DAILY 07/28/22 07/28/22 [Trelegy Ellipta 100-62.5-25] Tamsulosin HCl [Flomax] 0.4 mg PO DAILY 07/28/22 07/28/22 sitaGLIPtin PHOS/metFORMIN HCL 1 tab PO BID-W/MEALS 07/28/22 07/28/22 [Janumet 50-1,000 mg Tablet] Previous Rx's Medication Instructions Recorded Cyanocobalamin [Vitamin B-12] 1,000 mcg PO DAILY #30 tab 07/30/22 Dapagliflozin Propanediol [Farxiga] 5 mg PO DAILY #30 tab 07/30/22 Sodium Bicarbonate Tab 650 mg PO BID 14 Days #14 tab 07/30/22 Allergies Allergy/AdvReac Type Severity Reaction Status Date / Time Sulfa (Sulfonamide Allergy Unknown Verified 12/10/24 09:04 Antibiotics) Childhood Review of Systems ROS Statement: Those systems with pertinent positive or pertinent negative responses have been documented in the HPI. ROS Other: All systems not noted in ROS Statement are negative. Past Medical History Past Medical History: Coronary Artery Disease (CAD), Cancer, Chest Pain / Angina, COPD, Diabetes Mellitus, Hyperlipidemia, Myocardial Infarction ([place]), Musculoskeletal Disorder, Thyroid Disorder Additional Past Medical History / Comment(s): HX OF ESOPHAGEAL CANCER WITH RADIATION [place](2014), TINNITIS., FELL OUT OF ATTIC JUL 2017 AND HAS COMPRESSION FX l-2 (WEARING BACK SUPPORT) ., HAYFEVER ALLERGIES., HAVING DIFFICULTY SWALLOWING SOME FOODS. Stage 4 Throat CA Last Myocardial Infarction Date:: 2001 History of Any Multi-Drug Resistant Organisms: None Reported Past Surgical History: Heart Catheterization With Stent Additional Past Surgical History / Comment(s): cyst removal from back, Toe surgery (child) Past Anesthesia/Blood Transfusion Reactions: No Reported Reaction, Motion Sickness Additional Past Anesthesia/Blood Transfusion Reaction / Comment(s): dizziness when he closes his eyes in the shower. Date of Last Stent Placement:: 2001 Past Psychological History: No Psychological Hx Reported Smoking Status: Former smoker - Past Family History Father Family Medical History: Hypertension General Exam - General Exam Comments Initial Comments: GENERAL: Patient is well-developed and well-nourished. Patient is nontoxic and well- hydrated and is in mild distress. ENT: Neck is soft and supple. No significant lymphadenopathy is noted. Oropharynx is clear. Moist mucous membranes. Neck has full range of motion without eliciting any pain. EYES: The sclera were anicteric and conjunctiva were pink and moist. Extraocular movements were intact and pupils were equal round and reactive to light. Eyelids were unremarkable. PULMONARY: Unlabored respirations. Good breath sounds bilaterally. No audible rales rhonchi or wheezing was noted. CARDIOVASCULAR: Patient is bradycardic at 46 beats a minute. ABDOMEN: Soft and nontender with normal bowel sounds. SKIN: Skin is clear with no lesions or rashes and otherwise unremarkable. NEUROLOGIC: Patient is alert and oriented x3. Cranial nerves II through XII are grossly intact. Motor and sensory are also intact. Normal speech, volume and content. Symmetrical smile. Finger-nose testing is normal bilaterally MUSCULOSKELETAL: Normal extremities with adequate strength and full range of motion. No lower extremity swelling or edema. No calf tenderness. LYMPHATICS: No significant lymphadenopathy is noted PSYCHIATRIC: Normal psychiatric evaluation. Limitations: no limitations Course Vital Signs 12/10/24 12/10/24 12/10/24 09:00 10:26 11:04 Temperature 97.8 F Pulse Rate 48 L 56 L Pulse Rate [ 46 L Sitting] Pulse Rate [ 56 L Standing] Pulse Rate [ 42 L Supine] Respiratory 17 17 Rate Blood Pressure 110/70 116/54 Blood Pressure 108/79 [Right Arm Sitting] Blood Pressure 116/54 [Right Arm Standing] Blood Pressure 127/59 [Right Arm Supine] O2 Sat by Pulse 96 98 Oximetry Medical Decision Making - Medical Decision Making EKG is interpreted by myself but EKG shows a sinus bradycardia with occasional PVC at 48 bpm CA 171 QRS 140 QT interval is 516 QTc is 483. Patient's EKG shows no ST segment ovation. Patient does have a right bundle branch block. Was pt. sent in by a medical professional or institution (, PA, STORAGE ARCHITECT, urgent care, hospital, or half-way...) When possible be specific @ -No Did you speak to anyone other than the patient for history (EMS, parent, family, police, friend...)? What history was obtained from this source @ -No Did you review nursing and triage notes (agree or disagree)? Why? @ -I reviewed and agree with nursing and triage notes Were old charts reviewed (outside hosp., previous admission, EMS record, old EKG, old radiological studies, urgent care reports/EKG's, half-way records)? Report findings @ -No old charts were reviewed Differential Diagnosis? @ -Differential Dizziness: Benign paroxysmal positional Vertigo, Meniere's disease, otitis media, acoustic neuroma, vertebrobasilar insufficiency, cerebellar stroke, encephalitis, hypovolemic, arrhythmia, coronary artery syndrome, anemia, this is not meant to be an all-inclusive list EKG interpreted by me (3pts min.). @ -As above X-rays interpreted by me (1pt min.). @ -Chest x-ray shows no acute abnormality CT interpreted by me (1pt min.). @ -CT of the brain shows no acute abnormality U/S interpreted by me (1pt. min.). @ -None done What testing was considered but not performed or refused? (CT, X-rays, U/S, labs)? Why? @ -None What meds were considered but not given or refused? Why? @ -None Did you discuss the management of the patient with other professionals (professionals i.e. , PA, STORAGE ARCHITECT, lab, RT, psych nurse, clinical social work aide, auto slip cover installer, teacher, communications officer, bilingual patient support caseworker)? Give summary @ -I spoke with Dr. Briggs he agreed to admit the patient admit the patient wrote admitting orders Was smoking cessation discussed for >3mins.? @ -No Was critical care preformed (if so, how long)? @ -No Were there social determinants of health that impacted care today? How? (Homelessness, low income, unemployed, alcoholism, drug addiction, transportation, low edu. Level, literacy, decrease access to med. care, shelter, rehab)? @ -No Was there de-escalation of care discussed even if they declined (Discuss DNR or withdrawal of care, Hospice)? DNR status @ -No What co-morbidities impacted this encounter? (DM, HTN, Smoking, COPD, CAD, Cancer, CVA, ARF, Chemo, Hep., AIDS, mental health diagnosis, sleep apnea, morbid obesity)? @ -None Was patient admitted / discharged? Hospital course, mention meds given and route, prescriptions, significant lab abnormalities, going to OR and other pertinent info. @ -Patient was given IV fluids and throughout his ED stay he continued to be dizzy CAT scan showed no acute abnormality lab work was within normal range the only significant abnormality noted was the patient's heart rate will get down into the low 40s occasionally. Patient states this is atypical Undiagnosed new problem with uncertain prognosis? @ -No Drug Therapy requiring intensive monitoring for toxicity (Heparin, Nitro, Insulin, Cardizem)? @ -No Were any procedures done? @ -No Diagnosis/symptom? @ -Near syncope Acute, or Chronic, or Acute on Chronic? @ -Acute Uncomplicated (without systemic symptoms) or Complicated (systemic symptoms)? @ -Complicate Side effects of treatment? @ -No Exacerbation, Progression, or Severe Exacerbation? @ -No Poses a threat to life or bodily function? How? (Chest pain, [place], [place], pneumonia, PE, COPD, DKA, ARF, appy, cholecystitis, CVA, Diverticulitis, Homicidal, Suicidal, threat to staff... and all critical care pts) @ -Yes this could lead to syncope and injury. Diagnosis/symptom? @ -Bradycardia Acute, or Chronic, or Acute on Chronic? @ -Acute Uncomplicated (without systemic symptoms) or Complicated (systemic symptoms)? @ -Complicated Side effects of treatment? @ -None Exacerbation, Progression, or Severe Exacerbation] @ -No Poses a threat to life or bodily function? @ -Yes this can lead to poor perfusion and endorgan dysfunction - Lab Data Result diagrams: 12/10/24 09:33 12/10/24 09:33 Lab Results 12/10/24 12/10/24 12/10/24 Range/Units 09:33 09:33 09:33 WBC 9.1 (3.8-10.6) k/uL RBC 4.26 L (4.30-5.90) m/uL Hgb 11.7 L (13.0-17.5) gm/dL Hct 36.7 L (39.0-53.0) % MCV 86.1 (80.0-100.0) fL MCH 27.4 (25.0-35.0) pg MCHC 31.8 (31.0-37.0) g/dL RDW 15.3 (11.5-15.5) % Plt Count 150 (150-450) k/uL MPV 9.2 Neutrophils % 81 % Lymphocytes % 13 % Monocytes % 4 % Eosinophils % 2 % Basophils % 0 % Neutrophils # 7.3 (1.3-7.7) k/uL Lymphocytes # 1.1 (1.0-4.8) k/uL Monocytes # 0.4 (0-1.0) k/uL Eosinophils # 0.1 (0-0.7) k/uL Basophils # 0.0 (0-0.2) k/uL Hypochromasia Moderate PT 10.7 (10.0-12.5) sec INR 1.0 (<1.2) APTT 22.5 (22.0-30.0) sec Sodium 137 (137-145) mmol/L Potassium 4.7 (3.5-5.1) mmol/L Chloride 106 (98-107) mmol/L Carbon Dioxide 19 L (22-30) mmol/L Anion Gap 12 mmol/L BUN 39 H (9-20) mg/dL Creatinine 2.02 H (0.66-1.25) mg/dL Est GFR (CKD-EPI)AfAm 36 (>60 ml/min/1.73 sqM) Est GFR (CKD-EPI)NonAf 31 (>60 ml/min/1.73 sqM) Glucose 181 H (74-99) mg/dL Calcium 8.6 (8.4-10.2) mg/dL Magnesium 1.9 (1.6-2.3) mg/dL Total Bilirubin 0.6 (0.2-1.3) mg/dL AST 27 (17-59) U/L ALT 34 (4-49) U/L Alkaline Phosphatase 120 (38-126) U/L Troponin I (0.000-0.034) ng/mL Total Protein 6.5 (6.3-8.2) g/dL Albumin 4.0 (3.5-5.0) g/dL Urine Color Urine Appearance (Clear) Urine pH (5.0-8.0) Ur Specific [place] (1.001-1.035) Urine Protein (Negative) Urine Glucose (UA) (Negative) Urine Ketones (Negative) Urine Blood (Negative) Urine Nitrite (Negative) Urine Bilirubin (Negative) Urine Urobilinogen (<2.0) mg/dL Ur Leukocyte Esterase (Negative) 12/10/24 12/10/24 Range/Units 09:33 13:30 WBC (3.8-10.6) k/uL RBC (4.30-5.90) m/uL Hgb (13.0-17.5) gm/dL Hct (39.0-53.0) % MCV (80.0-100.0) fL MCH (25.0-35.0) pg MCHC (31.0-37.0) g/dL RDW (11.5-15.5) % Plt Count (150-450) k/uL MPV Neutrophils % % Lymphocytes % % Monocytes % % Eosinophils % % Basophils % % Neutrophils # (1.3-7.7) k/uL Lymphocytes # (1.0-4.8) k/uL Monocytes # (0-1.0) k/uL Eosinophils # (0-0.7) k/uL Basophils # (0-0.2) k/uL Hypochromasia PT (10.0-12.5) sec INR (<1.2) APTT (22.0-30.0) sec Sodium (137-145) mmol/L Potassium (3.5-5.1) mmol/L Chloride (98-107) mmol/L Carbon Dioxide (22-30) mmol/L Anion Gap mmol/L BUN (9-20) mg/dL Creatinine (0.66-1.25) mg/dL Est GFR (CKD-EPI)AfAm (>60 ml/min/1.73 sqM) Est GFR (CKD-EPI)NonAf (>60 ml/min/1.73 sqM) Glucose (74-99) mg/dL Calcium (8.4-10.2) mg/dL Magnesium (1.6-2.3) mg/dL Total Bilirubin (0.2-1.3) mg/dL AST (17-59) U/L ALT (4-49) U/L Alkaline Phosphatase (38-126) U/L Troponin I <0.012 (0.000-0.034) ng/mL Total Protein (6.3-8.2) g/dL Albumin (3.5-5.0) g/dL Urine Color Colorless Urine Appearance Clear (Clear) Urine pH 5.0 (5.0-8.0) Ur Specific [place] 1.015 (1.001-1.035) Urine Protein Negative (Negative) Urine Glucose (UA) 4+ H (Negative) Urine Ketones Negative (Negative) Urine Blood Negative (Negative) Urine Nitrite Negative (Negative) Urine Bilirubin Negative (Negative) Urine Urobilinogen <2.0 (<2.0) mg/dL Ur Leukocyte Esterase Negative (Negative) Disposition Clinical Impression: Near syncope, Bradycardia Disposition: ADMITTED IP TO THIS HOSP Referrals: None,Stated [REFERRING] - 1-2 days Time of Disposition: 14:21
[2024-12-10 10:14] LABS: Basophils % (A) 0 %; Eosinophils # (A) 0.1 k/uL (0-0.7); Eosinophils % (A) 2 %; HCT 36.7 % (39.0-53.0); HGB 11.7 gm/dL (13.0-17.5); Hypochromasia Moderate; Lymphocytes # (A) 1.1 k/uL (1.0-4.8); Lymphocytes % (A) 13 %; MCH 27.4 pg (25.0-35.0); MCHC 31.8 g/dL (31.0-37.0); MCV 86.1 fL (80.0-100.0); Mean Platelet Volume 9.2; Monocytes # (A) 0.4 k/uL (0-1.0); Monocytes % (A) 4 %; Neutrophils # (A) 7.3 k/uL (1.3-7.7); Neutrophils % (A) 81 %; Platelet Count 150 k/uL (150-450); RBC 4.26 m/uL (4.30-5.90); RDW 15.3 % (11.5-15.5); WBC 9.1 k/uL (3.8-10.6)
[2024-12-10 10:21] LABS: ALT 34 U/L (4-49); AST 27 U/L (17-59); African American GFR (CKD) 36 (>60 ml/min/1.73 sqM); Alkaline Phosphatase 120 U/L (38-126); Anion Gap 12 mmol/L; Blood Urea Nitrogen 39 mg/dL (9-20); Calcium 8.6 mg/dL (8.4-10.2); Carbon Dioxide 19 mmol/L (22-30); Chloride 106 mmol/L (98-107); Glucose 181 mg/dL (74-99); Magnesium 1.9 mg/dL (1.6-2.3); Non-African American GFR(CKD) 31 (>60 ml/min/1.73 sqM); Potassium 4.7 mmol/L (3.5-5.1); Sodium 137 mmol/L (137-145); Total Bilirubin 0.6 mg/dL (0.2-1.3); Total Protein 6.5 g/dL (6.3-8.2)
[2024-12-10 10:25] LABS: Partial Thromboplastin Time 22.5 sec (22.0-30.0); Prothrombin Time 10.7 sec (10.0-12.5)
--- NOTE | 2024-12-10 10:26 | XR ---
EXAMINATION TYPE: XR chest 2V DATE OF EXAM: 12/10/2024 CLINICAL INDICATION: Male, 79 years old with history of Chest Pain, TECHNIQUE: Frontal and lateral views of the chest are obtained. COMPARISON: Chest x-ray May 03, 2022 FINDINGS: Underlying emphysematous changes redemonstrated. There is no focal air space opacity, pleur al effusion, or pneumothorax seen. Prominent right pericardial fat pad is redemonstrated. The osseo us structures are intact. IMPRESSION: Chronic emphysematous changes without acute pulmonary process. [facility], , 12/10/2024 10:24 AM
--- NOTE | 2024-12-10 12:02 | CT ---
EXAMINATION TYPE: CT brain wo con DATE OF EXAM: 12/10/2024 COMPARISON: CT brain July 28, 2022 CLINICAL INDICATION: Male, 79 years old with history of Dizziness/syncope, TECHNIQUE: CT scan of the head is performed without contrast. Automated Exposure Control for Dose Reduction was Utilized. FINDINGS: There is no acute intracranial hemorrhage or midline shift identified. There is moderate diffuse ventricular and sulcal prominence redemonstrated. There is moderate to severe low-attenuati on in the periventricular white matter redemonstrated. Bilateral aphakia redemonstrated. The visualiz ed sinuses are clear. IMPRESSION: No acute intracranial hemorrhage or midline shift. No significant change from most recen t prior CT. [facility], , 12/10/2024 12:00 PM
[2024-12-10 13:49] LABS: Appearance,Urine Clear (Clear); Bilirubin,Urine Negative (Negative); Blood,Urine Negative (Negative); Color,Urine Colorless; Glucose,Urine (UA) 4+ (Negative); Ketones,Urine Negative (Negative); Leukocyte Esterase,Urine Negative (Negative); Nitrite,Urine Negative (Negative); Protein,Urine Negative (Negative); Specific Gravity,Urine 1.015 (1.001-1.035); Urobilinogen,Urine <2.0 mg/dL (<2.0)
[2024-12-10] MEDS ORDERED: NITROGLYCERIN SL TABS 0.4 MG TAB SUBLINGUAL PRN (14:21)
[2024-12-10] MEDS ORDERED: IPRATROPIUM 0.5 MG/2.5 ML NEBU INHALATION PRN (18:35)
[2024-12-10] MEDS ORDERED: NON FORMULARY DRUG (Albuterol Inhaler 90 MCG Puff) INHALATION PRN (18:35)
[2024-12-10] MEDS ORDERED: ALBUTEROL NEBULIZED 2.5 MG/3 ML INHALATION PRN (18:35)
[2024-12-10] MEDS ORDERED: AZELASTINE 137MCG/SPRAY EA NOSTRIL PRN (18:35)
--- NOTE | 2024-12-10 18:41 | P.HPIM ---
History of Present Illness This is a pleasant 79 years old male with past medical history of multiple medical problems as below Presents because of feeling dizzy. Patient states that this dizziness has been going on on and off for a while but yesterday was really bad because trouble for him he felt he is going to pass out so he decided to come to emergency room no chest pain no dyspnea No abdominal pain vomiting Patient reports having diarrhea for 4 days but has stopped yesterday He denies urinary symptoms like urgency. No headache weakness or numbness He denies smoking alcohol or illicit drugs Patient is hemodynamically stable He is afebrile Hemoglobin 11.3, creatinine 2.0 which is baseline 1.7-2.1 CT of the brain is negative for acute process EKG showing sinus bradycardia at 48 Chest x-ray showing no acute cardiopulmonary process Review of Systems Review of systems CONSTITUTIONAL: No fever, no malaise, no fatigue. HEENT: No recent visual problems or hearing problems. Denied any sore throat. CARDIOVASCULAR: No orthopnea, PND, no palpitations, no syncope. PULMONARY: No shortness of breath, no cough, no hemoptysis. GASTROINTESTINAL: No diarrhea, no nausea, no vomiting, no abdominal pain. Normoactive bowel sounds. NEUROLOGICAL: No headaches, no weakness, no numbness. HEMATOLOGICAL: Denies any bleeding or petechiae. GENITOURINARY: Denies any burning micturition, frequency, or urgency. MUSCULOSKELETAL/RHEUMATOLOGICAL: Denies any joint pain, swelling, or any muscle pain. ENDOCRINE: Denies any polyuria or polydipsia. Past Medical History Past Medical History: Coronary Artery Disease (CAD), Cancer, Chest Pain / Angina, COPD, Diabetes Mellitus, Hyperlipidemia, Myocardial Infarction ([place]), Musculoskeletal Disorder, Thyroid Disorder Additional Past Medical History / Comment(s): HX OF ESOPHAGEAL CANCER WITH RADIATION [place](2014), TINNITIS., FELL OUT OF ATTIC JUL 2017 AND HAS COMPRESSION FX l-2 (WEARING BACK SUPPORT) ., HAYFEVER ALLERGIES., HAVING DIFFICULTY SWALLOWING SOME FOODS. Stage 4 Throat CA Last Myocardial Infarction Date:: 2001 History of Any Multi-Drug Resistant Organisms: None Reported Past Surgical History: Heart Catheterization With Stent Additional Past Surgical History / Comment(s): cyst removal from back, Toe surgery (child) Past Anesthesia/Blood Transfusion Reactions: No Reported Reaction, Motion Sickness Additional Past Anesthesia/Blood Transfusion Reaction / Comment(s): dizziness when he closes his eyes in the shower. Date of Last Stent Placement:: 2001 Past Psychological History: No Psychological Hx Reported Smoking Status: Former smoker - Past Family History Father Family Medical History: Hypertension Medications and Allergies Home Medications Medication Instructions Recorded Confirmed Type Atorvastatin [Lipitor] 80 mg PO DAILY 11/28/14 12/10/24 History Aspirin [Adult Low Dose Aspirin EC] 81 mg PO DAILY 08/14/17 12/10/24 History Albuterol Nebulized [Ventolin 2.5 mg INHALATION RT-TID PRN 08/11/19 12/10/24 History Nebulized] Cinnamon Bark [Cinnamon] 1,000 mg PO DAILY 08/11/19 12/10/24 History Ipratropium Nebulized [Atrovent 0.5 mg INHALATION RT-Q6H PRN 08/11/19 12/10/24 History Nebulized 0.2 MG/ML] Albuterol Inhaler [Ventolin Hfa 2 puff INHALATION RT-Q6H PRN 07/28/22 12/10/24 History Inhaler] Azelastine HCl [Astelin Nasal 2 spr EA NOSTRIL BID PRN 07/28/22 12/10/24 History [place]] Fluticasone/Umeclidin/Vilanter 1 puff INHALATION RT-DAILY 07/28/22 12/10/24 History [[place] Ellipta 100-62.5-25] sitaGLIPtin PHOS/metFORMIN HCL 1 tab PO BID-W/MEALS 07/28/22 12/10/24 History [Janumet 50-1,000 mg Tablet] Dapagliflozin Propanediol [Farxiga] 5 mg PO DAILY #30 tab 07/30/22 12/10/24 Rx Donepezil [Aricept] 10 mg PO HS 12/10/24 12/10/24 History Enalapril Maleate 2.5 mg PO DAILY 12/10/24 12/10/24 History Finasteride [Proscar] 5 mg PO DAILY 12/10/24 12/10/24 History Levothyroxine Sodium [Synthroid] 100 mcg PO DAILY 12/10/24 12/10/24 History Lidocaine 5% Patch [Lidoderm] 1 patch TRANSDERM DAILY 12/10/24 12/10/24 History Midodrine HCl [ProAmatine] 10 mg PO BID 12/10/24 12/10/24 History Montelukast [Singulair] 10 mg PO HS 12/10/24 12/10/24 History Multivit-Mins/Iron/Folic/Lycop 1 tab PO DAILY 12/10/24 12/10/24 History [Centrum Men's Tablet] [facility] 3-6-9 1200mg 1 cap PO DAILY 12/10/24 12/10/24 History Oxybutynin ER [Ditropan XL] 10 mg PO DAILY 12/10/24 12/10/24 History Sertraline [Zoloft] 50 mg PO DAILY 12/10/24 12/10/24 History Sodium Bicarbonate Tab 650 mg PO DAILY 12/10/24 12/10/24 History Vit C/E/Zn/Coppr/Lutein/Zeaxan 1 cap PO BID 12/10/24 12/10/24 History [Preservision Areds 2 Softgel] Allergies Allergy/AdvReac Type Severity Reaction Status Date / Time Sulfa (Sulfonamide Allergy Unknown Verified 12/10/24 14:24 Antibiotics) Childhood Physical Exam Vitals: Vital Signs Temp Pulse Pulse Pulse Pulse Pulse Resp 12/10/24 18:26 97.7 F 54 L 16 12/10/24 17:00 54 L 17 12/10/24 14:53 46 L 12/10/24 11:04 56 L 17 12/10/24 10:26 46 L 56 L 42 L 12/10/24 09:00 97.8 F 48 L 17 BP BP BP BP Pulse Ox 12/10/24 18:26 138/66 97 12/10/24 17:00 125/72 98 12/10/24 14:53 12/10/24 11:04 116/54 98 12/10/24 10:26 108/79 116/54 127/59 12/10/24 09:00 110/70 96 Intake and Output 12/10/24 12/10/24 12/10/24 06:59 14:59 22:59 Other: Weight 100.698 kg -GENERAL: The patient is alert and oriented x3, not in any acute distress. Well developed, well nourished. Obese HEENT: Pupils are round and equally reacting to light. EOMI. No scleral icterus. No conjunctival pallor. Normocephalic, atraumatic. No pharyngeal erythema. No thyromegaly. CARDIOVASCULAR: S1 and S2 present. No murmurs, rubs, or gallops. PULMONARY: Chest is clear to auscultation, no wheezing , no crackles. ABDOMEN: Soft, nontender, nondistended, normoactive bowel sounds. No palpable organomegaly. MUSCULOSKELETAL: No joint swelling or deformity. EXTREMITIES: No cyanosis, clubbing, or pedal edema. NEUROLOGICAL: Gross neurological examination did not reveal any focal deficits. SKIN: No rashes. no petechiae. Results CBC & Chem 7: 12/10/24 09:33 12/10/24 09:33 Labs: Abnormal Lab Results - Last 24 Hours (Table) 12/10/24 12/10/24 12/10/24 Range/Units : 09:33 13:30 RBC 4.26 L (4.30-5.90) m/uL Hgb 11.7 L (13.0-17.5) gm/dL Hct 36.7 L (39.0-53.0) % Carbon Dioxide 19 L (22-30) mmol/L BUN 39 H (9-20) mg/dL Creatinine 2.02 H (0.66-1.25) mg/dL Glucose 181 H (74-99) mg/dL Urine Glucose (UA) 4+ H (Negative) Assessment and Plan Assessment: Dizziness presyncope, could be ongoing problem related to bradycardia and others including problem related to diabetic neuropathy versus other precipitated by diarrhea few days earlier Symptomatic bradycardia Diabetes mellitus Hypertension Hyperlipidemia 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 Continue same treatment. Continue with symptomatic treatment. Resume home medication. Monitor labs and vitals. DVT and GI prophylaxis. Further recommendations as per clinical course of the patient DVT prophylaxis: Subcutaneous Lovenox GI Prophylaxis: Protonix Prognosis is guarded
[2024-12-10] MEDS: SODIUM CHLORIDE 0.9% 500 ML 500 ML IV SCH (18:59)
[2024-12-10] MEDS: DONEPEZIL 10 MG TAB PO SCH (20:10)
[2024-12-10] MEDS: MONTELUKAST 10 MG TAB PO SCH (20:10)
[2024-12-10 20:15] LABS: Glucose,Whole Blood 184 mg/dL (70-110)
[2024-12-10] MEDS: FAMOTIDINE 20 MG/2 ML VIAL IV SCH (20:16)
[2024-12-11 06:11] LABS: Glucose,Whole Blood 125 mg/dL (70-110)
[2024-12-11] MEDS: LINAGLIPTIN 5 MG TABLET PO SCH (06:30)
[2024-12-11] MEDS: metFORMIN 500 MG TAB PO SCH (06:30)
[2024-12-11] MEDS: LEVOTHYROXINE 100 MCG TAB PO SCH (06:30)
--- NOTE | 2024-12-11 07:43 | P.CRDCN ---
History of Present Illness Consult date: 12/11/24 History of present illness: The patient is a pleasant 79-year-old gentleman who is known to our service from before with a past medical history significant for CAD with prior stenting of the LAD in the setting of ACS several years ago as well as diabetes and hypertension and dyslipidemia and thyroid disease and chronic kidney disease. The patient was in his usual state of health till yesterday when he woke up from sleep and stood up trying to walk and felt dizzy and lightheaded. No syncope. No symptoms of any chest pain or chest discomfort or shortness of breath or any feeling of heart racing or fluttering. He came into the emergency department with an evidence of heart rate in the 40s. He was not on any AV charles sara agents. He does have thyroid disease and currently is on thyroid replacement medications. The EKG shows sinus bradycardia. During his hospital stay within the last 24 hours his heart rate has been in the 50s. Troponin is unremarkable. The EKG is as described above. Echocardiogram is pending. Thyroid function test including TSH and free T4 were not checked. The rest of the workup overall is unremarkable beside acute on chronic renal failure and he is known to have chronic kidney disease. The physical examination is remarkable for regular rhythm with a systolic murmur at the right upper sternal border and clear breathing sounds bilaterally and no edema was noted in the lower extremities Assessment Symptomatic bradycardia which has resolved CAD status post PCI of the LAD Thyroid disease with hypothyroidism Multiple comorbid conditions including diabetes and hypertension dyslipidemia Plan Acute coronary event was ruled out Rule out any reversible cause for the bradycardia Obtain TSH and free T4 Follow-up on the echocardiogram Monitor the patient for additional 24 hours Further recommendation to follow Past Medical History Past Medical History: Coronary Artery Disease (CAD), Cancer, Chest Pain / Angina, COPD, Diabetes Mellitus, Hyperlipidemia, Myocardial Infarction ([place]), Musculoskeletal Disorder, Thyroid Disorder Additional Past Medical History / Comment(s): HX OF ESOPHAGEAL CANCER WITH RADIATION [place](2014), TINNITIS., FELL OUT OF ATTIC JUL 2017 AND HAS COMPRESSION FX l-2 (WEARING BACK SUPPORT) ., HAYFEVER ALLERGIES., HAVING DIFFICULTY S WALLOWING SOME FOODS. Stage 4 Throat CA Last Myocardial Infarction Date:: 2001 History of Any Multi-Drug Resistant Organisms: None Reported Past Surgical History: Heart Catheterization With Stent Additional Past Surgical History / Comment(s): cyst removal from back, Toe surgery (child) Past Anesthesia/Blood Transfusion Reactions: No Reported Reaction, Motion Sickness Additional Past Anesthesia/Blood Transfusion Reaction / Comment(s): dizziness wh en he closes his eyes in the shower. Date of Last Stent Placement:: 2001 Past Psychological History: No Psychological Hx Reported Smoking Status: Former smoker - Past Family History Father Family Medical History: Hypertension Medications and Allergies Home Medications Medication Instructions Recorded Confirmed Type Atorvastatin [Lipitor] 80 mg PO DAILY 11/28/14 12/10/24 History Aspirin [Adult Low Dose Aspirin EC] 81 mg PO DAILY 08/14/17 12/10/24 History Albuterol Nebulized [Ventolin 2.5 mg INHALATION RT-TID PRN 08/11/19 12/10/24 History Nebulized] Cinnamon Bark [Cinnamon] 1,000 mg PO DAILY 08/11/19 12/10/24 History Ipratropium Nebulized [Atrovent 0.5 mg INHALATION RT-Q6H PRN 08/11/19 12/10/24 History Nebulized 0.2 MG/ML] Albuterol Inhaler [Ventolin Hfa 2 puff INHALATION RT-Q6H PRN 07/28/22 12/10/24 History Inhaler] Azelastine HCl [Astelin Nasal 2 spr EA NOSTRIL BID PRN 07/28/22 12/10/24 History [place]] Fluticasone/Umeclidin/Vilanter 1 puff INHALATION RT-DAILY 07/28/22 12/10/24 History [[place] Ellipta 100-62.5-25] sitaGLIPtin PHOS/metFORMIN HCL 1 tab PO BID-W/MEALS 07/28/22 12/10/24 History [Janumet 50-1,000 mg Tablet] Dapagliflozin Propanediol [Farxiga] 5 mg PO DAILY #30 tab 07/30/22 12/10/24 Rx Donepezil [Aricept] 10 mg PO HS 12/10/24 12/10/24 History Enalapril Maleate 2.5 mg PO DAILY 12/10/24 12/10/24 History Finasteride [Proscar] 5 mg PO DAILY 12/10/24 12/10/24 History Levothyroxine Sodium [Synthroid] 100 mcg PO DAILY 12/10/24 12/10/24 History Lidocaine 5% Patch [Lidoderm] 1 patch TRANSDERM DAILY 12/10/24 12/10/24 History Midodrine HCl [ProAmatine] 10 mg PO BID 12/10/24 12/10/24 History Montelukast [Singulair] 10 mg PO HS 12/10/24 12/10/24 History Multivit-Mins/Iron/Folic/Lycop 1 tab PO DAILY 12/10/24 12/10/24 History [Centrum Men's Tablet] [place] 3-6-9 1200mg 1 cap PO DAILY 12/10/24 12/10/24 History Oxybutynin ER [Ditropan XL] 10 mg PO DAILY 12/10/24 12/10/24 History Sertraline [Zoloft] 50 mg PO DAILY 12/10/24 12/10/24 History Sodium Bicarbonate Tab 650 mg PO DAILY 12/10/24 12/10/24 History Vit C/E/Zn/Coppr/Lutein/Zeaxan 1 cap PO BID 12/10/24 12/10/24 History [Preservision Areds 2 Softgel] Allergies Allergy/AdvReac Type Severity Reaction Status Date / Time Sulfa (Sulfonamide Allergy Unknown Verified 12/10/24 14:24 Antibiotics) Childhood Physical Exam Vitals: Vital Signs Temp Pulse Pulse Pulse Pulse Pulse Resp 12/11/24 04:00 97.8 F 52 L 16 12/11/24 01:40 55 L 46 L 56 L 42 L 16 12/10/24 23:37 97.7 F 55 L 16 12/10/24 20:00 97.4 F L 59 L 46 L 56 L 42 L 16 12/10/24 18:31 97.7 F 54 L 16 12/10/24 18:26 97.7 F 54 L 16 12/10/24 17:00 54 L 17 12/10/24 14:53 46 L 12/10/24 11:04 56 L 17 12/10/24 10:26 46 L 56 L 42 L 12/10/24 09:00 97.8 F 48 L 17 BP BP BP BP Pulse Ox 12/11/24 04:00 125/72 99 12/11/24 01:40 12/10/24 23:37 132/76 97 12/10/24 20:00 150/85 100 12/10/24 18:31 138/66 98 12/10/24 18:26 138/66 97 12/10/24 17:00 125/72 98 12/10/24 14:53 12/10/24 11:04 116/54 98 12/10/24 10:26 108/79 116/54 127/59 12/10/24 09:00 110/70 96 Intake and Output 12/10/24 12/11/24 12/11/24 22:59 06:59 14:59 Output Total 300 Balance -300 Output: Urine 300 Other: Voiding Method Bedside Commode Bedside Commode # Bowel Movements 1 Weight 100.698 kg 97.6 kg Results 12/10/24 09:33 12/10/24 09:33 Cardiac Enzymes 12/10/24 12/10/24 12/10/24 Range/Units 09:33 09:33 15:09 AST 27 (17-59) U/L Troponin I <0.012 <0.012 (0.000-0.034) ng/mL 12/10/24 Range/Units 18:30 AST (17-59) U/L Troponin I <0.012 (0.000-0.034) ng/mL Coagulation 12/10/24 Range/Units 09:33 PT 10.7 (10.0-12.5) sec APTT 22.5 (22.0-30.0) sec CBC 12/10/24 Range/Units 09:33 WBC 9.1 (3.8-10.6) k/uL RBC 4.26 L (4.30-5.90) m/uL Hgb 11.7 L (13.0-17.5) gm/dL Hct 36.7 L (39.0-53.0) % Plt Count 150 (150-450) k/uL Comprehensive Metabolic Panel 12/10/24 Range/Units 09:33 Sodium 137 (137-145) mmol/L Potassium 4.7 (3.5-5.1) mmol/L Chloride 106 (98-107) mmol/L Carbon Dioxide 19 L (22-30) mmol/L BUN 39 H (9-20) mg/dL Creatinine 2.02 H (0.66-1.25) mg/dL Glucose 181 H (74-99) mg/dL Calcium 8.6 (8.4-10.2) mg/dL AST 27 (17-59) U/L ALT 34 (4-49) U/L Alkaline Phosphatase 120 (38-126) U/L Total Protein 6.5 (6.3-8.2) g/dL Albumin 4.0 (3.5-5.0) g/dL Current Medications Generic Name Dose Route Start Last Admin Trade Name Freq PRN Reason Stop Dose Admin Albuterol Sulfate 2.5 mg 12/10/24 18:35 Albuterol Nebulized 2.5 Mg/3 Ml INHALATION RT-TID PRN Shortness Of Breath Aspirin 325 mg 12/11/24 09:00 Aspirin 325 Mg Tab PO DAILY [facility] Atorvastatin Calcium 80 mg 12/11/24 09:00 Atorvastatin 80 Mg Tab PO DAILY KARINA Azelastine HCl 2 spray 12/10/24 18:35 Azelastine 137mcg/[place] EA NOSTRIL BID PRN Allergy Symptoms Dapagliflozin 5 mg 12/11/24 09:00 Dapagliflozin Propanediol 5 Mg Tablet PO DAILY [facility] Donepezil HCl 10 mg 12/10/24 21:00 12/10/24 20:10 Donepezil 10 Mg Tab PO 10 mg HS KARINA Administration Enoxaparin Sodium 30 mg 12/11/24 09:00 Enoxaparin 30 Mg/0.3 Ml Syringe SQ DAILY KARINA Famotidine 20 mg 12/10/24 20:00 12/10/24 20:16 Famotidine 20 Mg/2 Ml Vial IV 20 mg DAILY KARINA Administration Finasteride 5 mg 12/11/24 09:00 Finasteride 5 Mg Tab PO DAILY [facility] Sodium Chloride 500 mls @ 75 mls/hr 12/10/24 18:45 12/11/24 06:28 Saline 0.9% IV 12/11/24 12:44 75 mls/hr .Q6H40M KARINA Administration Levothyroxine Sodium 100 mcg 12/11/24 06:30 12/11/24 06:30 Levothyroxine 100 Mcg Tab PO 100 mcg 0630 KARINA Administration Lidocaine 1 patch 12/11/24 09:00 Lidocaine 4% Patch TOPICAL DAILY [facility] Linagliptin 5 mg 12/11/24 07:30 12/11/24 06:30 Linagliptin 5 Mg Tablet PO 5 mg AC-BRKFST KARINA Administration Lisinopril 5 mg 12/11/24 09:00 Lisinopril 5 Mg Tab PO DAILY KARINA Metformin HCl 1,000 mg 12/11/24 07:30 12/11/24 06:30 Metformin 500 Mg Tab PO 1,000 mg BID-W/MEALS KARINA Administration Montelukast Sodium 10 mg 12/10/24 21:00 12/10/24 20:10 Montelukast 10 Mg Tab PO 10 mg HS KARINA Administration Nitroglycerin 0.4 mg 12/10/24 14:21 Nitroglycerin Sl Tabs 0.4 Mg Tab SUBLINGUAL Q5M PRN Chest Pain Oxybutynin Chloride 10 mg 12/11/24 09:00 Oxybutynin 10 Mg Tab.Er.24 PO DAILY KARINA Sertraline HCl 50 mg 12/11/24 09:00 Sertraline 50 Mg Tab PO DAILY [facility] Sodium Bicarbonate 650 mg 12/11/24 09:00 Sodium Bicarbonate Tab 650 Mg Tab PO DAILY [facility] Tiotropium [place] 2 puff 12/11/24 08:00 Tiotropium 2.5 Mcg Inhaler INHALATION RT-DAILY [facility] Intake and Output 12/10/24 12/11/24 12/11/24 22:59 06:59 14:59 Output Total 300 Balance -300 Output: Urine 300 Other: Voiding Method Bedside Commode Bedside Commode # Bowel Movements 1 Weight 100.698 kg 97.6 kg 12/10/24 09:33 12/10/24 09:33
[2024-12-11] MEDS: lisinopriL 5 MG TAB PO SCH (08:00)
[2024-12-11] MEDS: FINASTERIDE 5 MG TAB PO SCH (08:00)
[2024-12-11] MEDS: ASPIRIN 325 MG TAB PO SCH (08:00)
[2024-12-11] MEDS: SERTRALINE 50 MG TAB PO SCH (08:00)
[2024-12-11] MEDS: ATORVASTATIN 80 MG TAB PO SCH (08:00)
[2024-12-11] MEDS: DAPAGLIFLOZIN PROPANEDIOL 5 MG TABLET PO SCH (08:00)
[2024-12-11] MEDS: SODIUM BICARBONATE TAB 650 MG TAB PO SCH (08:00)
[2024-12-11] MEDS: ENOXAPARIN 30 MG/0.3 ML SYRINGE SQ SCH (08:00)
[2024-12-11] MEDS: LIDOCAINE 4% PATCH TOPICAL SCH (08:01)
[2024-12-11] MEDS: OXYBUTYNIN 10 MG TAB.ER.24 PO SCH (08:04)
[2024-12-11] MEDS: TIOTROPIUM 2.5 MCG INHALER INHALATION SCH (08:04)
[2024-12-11 08:34] LABS: African American GFR (CKD) 41 (>60 ml/min/1.73 sqM); Anion Gap 10 mmol/L; Blood Urea Nitrogen 36 mg/dL (9-20); Calcium 8.4 mg/dL (8.4-10.2); Carbon Dioxide 21 mmol/L (22-30); Chloride 106 mmol/L (98-107); Glucose 149 mg/dL (74-99); Non-African American GFR(CKD) 36 (>60 ml/min/1.73 sqM); Potassium 4.4 mmol/L (3.5-5.1); Sodium 137 mmol/L (137-145)
[2024-12-11] MEDS ORDERED: NON FORMULARY DRUG (Aspirin [Adult Low Dose Aspirin Ec] 81 MG Tablet.Dr) PO SCH (09:00)
--- NOTE | 2024-12-11 09:06 | P.PN ---
Subjective This is a pleasant 79 years old male with past medical history of multiple medical problems as below Presents because of feeling dizzy. Patient states that this dizziness has been going on on and off for a while but yesterday was really bad because trouble for him he felt he is going to pass out so he decided to come to emergency room no chest pain no dyspnea No abdominal pain vomiting Patient reports having diarrhea for 4 days but has stopped yesterday He denies urinary symptoms like urgency. 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 This medication was discontinued and informed the patient and he agrees. We recommend that he follow-up with PCP for further recommendation and he agrees as well Review of systems CONSTITUTIONAL: No fever, no malaise, no fatigue. GASTROINTESTINAL: No diarrhea, no nausea, no vomiting, no abdominal pain. Normoactive bowel sounds. NEUROLOGICAL: No headaches, no weakness, no numbness. HEMATOLOGICAL: Denies any bleeding or petechiae. GENITOURINARY: Denies any burning micturition, frequency, or urgency. MUSCULOSKELETAL/RHEUMATOLOGICAL: Denies any joint pain, swelling, or any muscle pain. ENDOCRINE: Denies any polyuria or polydipsia. Active Medications Generic Name Dose Route Start Last Admin Trade Name Freq PRN Reason Stop Dose Admin Albuterol Sulfate 2.5 mg 12/10/24 18:35 Albuterol Nebulized 2.5 Mg/3 Ml INHALATION RT-TID PRN Shortness Of Breath Aspirin 325 mg 12/11/24 09:00 12/11/24 08:00 Aspirin 325 Mg Tab PO 325 mg DAILY KARINA Administration Atorvastatin Calcium 80 mg 12/11/24 09:12/11/24 08:00 Atorvastatin 80 Mg Tab PO 80 mg DAILY KARINA Administration Azelastine HCl 2 spray 12/10/24 18:35 Azelastine 137mcg/[place] EA NOSTRIL BID PRN Allergy Symptoms Dapagliflozin 5 mg 12/11/24 09:00 12/11/24 08:00 Dapagliflozin Propanediol 5 Mg Tablet PO 5 mg DAILY KARINA Administration Enoxaparin Sodium 30 mg 12/11/24 09:00 12/11/24 08:00 Enoxaparin 30 Mg/0.3 Ml Syringe SQ 30 mg DAILY KARINA Administration Famotidine 20 mg 12/12/24 09:00 Famotidine 20 Mg Tab PO DAILY KARINA Finasteride 5 mg 12/11/24 09:00 12/11/24 08:00 Finasteride 5 Mg Tab PO 5 mg DAILY [facility] Administration Sodium Chloride 500 mls @ 75 mls/hr 12/10/24 18:45 12/11/24 08:00 Saline 0.9% IV 12/11/24 12:44 75 mls/hr .Q6H40M KARINA Administration Levothyroxine Sodium 100 mcg 12/11/24 06:30 12/11/24 06:30 Levothyroxine 100 Mcg Tab PO 100 mcg 0630 KARINA Administration Lidocaine 1 patch 12/11/24 09:00 12/11/24 08:01 Lidocaine 4% Patch TOPICAL Not Given DAILY [facility] Linagliptin 5 mg 12/11/24 07:30 12/11/24 06:30 Linagliptin 5 Mg Tablet PO 5 mg AC-BRKFST KARINA Administration Lisinopril 5 mg 12/11/24 09:00 12/11/24 08:00 Lisinopril 5 Mg Tab PO 5 mg DAILY KARINA Administration Metformin HCl 1,000 mg 12/11/24 07:30 12/11/24 06:30 Metformin 500 Mg Tab PO 1,000 mg BID-W/MEALS KARINA Administration Montelukast Sodium 10 mg 12/10/24 21:00 12/10/24 20:10 Montelukast 10 Mg Tab PO 10 mg HS KARINA Administration Nitroglycerin 0.4 mg 12/10/24 14:21 Nitroglycerin Sl Tabs 0.4 Mg Tab SUBLINGUAL Q5M PRN Chest Pain Oxybutynin Chloride 10 mg 12/11/24 09:00 12/11/24 08:04 Oxybutynin 10 Mg Tab.Er.24 PO 10 mg DAILY KARINA Administration Sertraline HCl 50 mg 12/11/24 09:00 12/11/24 08:00 Sertraline 50 Mg Tab PO 50 mg DAILY KARINA Administration Sodium Bicarbonate 650 mg 12/11/24 09:00 12/11/24 08:00 Sodium Bicarbonate Tab 650 Mg Tab PO 650 mg DAILY KARINA Administration Tiotropium [place] 2 puff 12/11/24 08:00 12/11/24 08:04 Tiotropium 2.5 Mcg Inhaler INHALATION Not Given RT-DAILY KARINA Objective - Vital Signs Vital signs: Vital Signs Temp 97.9 F 12/11/24 07:42 Pulse 54 L 12/11/24 08:08 Resp 17 12/11/24 07:42 BP 143/71 12/11/24 07:42 Pulse Ox 98 12/11/24 07:42 FiO2 Intake & Output 12/10/24 12/11/24 12/11/24 18:59 06:59 18:59 Output Total 300 200 Balance -300 -200 Weight 100.698 kg 97.6 kg Output: Urine 300 200 Other: Voiding Method Bedside Commode Bedside Commode # Bowel Movements 1 - Exam -GENERAL: The patient is alert and oriented x3, not in any acute distress. Well developed, well nourished. Obese with good appetite HEENT: Pupils are round and equally reacting to light. EOMI. No scleral icterus. No conjunctival pallor. Normocephalic, atraumatic. No pharyngeal erythema. No thyromegaly. CARDIOVASCULAR: S1 and S2 present. No murmurs, rubs, or gallops. PULMONARY: Chest is clear to auscultation, no wheezing , no crackles. ABDOMEN: Soft, nontender, nondistended, normoactive bowel sounds. No palpable organomegaly. MUSCULOSKELETAL: No joint swelling or deformity. EXTREMITIES: No cyanosis, clubbing, or pedal edema. NEUROLOGICAL: Gross neurological examination did not reveal any focal deficits. SKIN: No rashes. no petechiae. - Labs CBC & Chem 7: 12/10/24 09:33 12/11/24 07:56 Labs: Abnormal Lab Results - Last 24 Hours (Table) 12/10/24 12/10/24 12/10/24 Range/Units 09:33 09:33 13:30 RBC 4.26 L (4.30-5.90) m/uL Hgb 11.7 L (13.0-17.5) gm/dL Hct 36.7 L (39.0-53.0) % Carbon Dioxide 19 L (22-30) mmol/L BUN 39 H (9-20) mg/dL Creatinine 2.02 H (0.66-1.25) mg/dL Glucose 181 H (74-99) mg/dL POC Glucose (mg/dL) (70-110) mg/dL Urine Glucose (UA) 4+ H (Negative) 12/10/24 12/11/24 12/11/24 Range/Units 20:12 06:08 07:56 RBC (4.30-5.90) m/uL Hgb (13.0-17.5) gm/dL Hct (39.0-53.0) % Carbon Dioxide 21 L (22-30) mmol/L BUN 36 H (9-20) mg/dL Creatinine 1.80 H (0.66-1.25) mg/dL Glucose 149 H (74-99) mg/dL POC Glucose (mg/dL) 184 H 125 H (70-110) mg/dL Urine Glucose (UA) (Negative) Assessment and Plan Assessment: Dizziness presyncope, could be ongoing problem related to bradycardia and others including problem related to diabetic neuropathy versus other precipitated by diarrhea few days earlier Symptomatic bradycardia mostly secondary to donepezil which is discontinued. Check TSH Diabetes mellitus Hypertension Hyperlipidemia Diabetic nephropathy with chronic kidney disease stage III Obesity with BMI of 31 Plan: St discontinue hydration 75 mL/h for a few hours Check TSH and T4 Discontinue donepezil and patient informed and he agrees Cardiology consult Labs and medication were reviewed.. Continue same treatment. Continue with symptomatic treatment. Resume home medication. Monitor labs and vitals. DVT and GI prophylaxis. Further recommendations as per clinical course of the patient DVT prophylaxis: Subcutaneous Lovenox GI Prophylaxis: Protonix Prognosis is guarded Possible discharge 24 to 48 hours
[2024-12-11 09:41] LABS: T4, Free (Free Thyroxine) 0.81 ng/dL (0.78-2.19)
--- NOTE | 2024-12-11 11:03 | CA ---
Transthoracic Echo Report Name: Hang Prajapati Age: 79 Gender: M : 1945 Exam Date: 12/11/2024 08:48 Exam Location: [place] [facility] Ht (in): 71 Wt (lb): 215 Ordering Physician: Armin Morel MD ([id number]) Attending/Referring Phys: Organisation And Methods Analyst Casie King RDCS Procedure CPT: Indications: Bradycardia Cardiac Hx: Technical Quality: Technically difficult study Contrast 1: Definity Total Dose (mL): 3 Contrast 2: Total Dose (mL): MEASUREMENTS (Male / Female) Normal Values 2D ECHO LV Diastolic Diameter PLAX 5.2 cm 4.2 - 5.9 / 3.9 - 5.3 cm LV Systolic Diameter PLAX 3.7 cm IVS Diastolic Thickness 0.9 cm 0.6 - 1.0 / 0.6 - 0.9 cm LVPW Diastolic Thickness 1.1 cm 0.6 - 1.0 / 0.6 - 0.9 cm LV Relative Wall Thickness 0.4 LVOT Diameter 2.4 cm LV Diastolic Volume MOD BP 140.2 cm??? 67 - 155 / 56 - 104 cm??? LV Systolic Volume MOD BP 65.2 cm??? 22 - 58 / 19 - 49 cm??? LV Ejection Fraction MOD BP 53.5 % >= 55 % LV Cardiac Index MOD BP 1913.2 cm???/min???m??? LV Diastolic Volume MOD 4C 144.9 cm??? LV Systolic Volume MOD 4C 72.5 cm??? LV Ejection Fraction MOD 4C 50.0 % LV Cardiac Index MOD 4C 1849.1 cm???/min???m??? LV Diastolic Length 4C 8.6 cm LV Systolic Length 4C 7.3 cm LV Diastolic Volume MOD 2C 134.4 cm??? LV Systolic Volume MOD 2C 57.7 cm??? LV Ejection Fraction MOD 2C 57.1 % LV Cardiac Index MOD 2C 1956.3 cm???/min???m??? LV Diastolic Length 2C 8.5 cm LV Systolic Length 2C 7.1 cm LA Volume 74.8 cm??? 18 - 58 / 22 - 52 cm??? LA Volume Index 33.5 cm???/m??? 16 - 28 cm???/m??? DOPPLER AV Peak Velocity 151.1 cm/s AV Peak Gradient 9.1 mmHg AV Mean Velocity 110.9 cm/s AV Mean Gradient 5.4 mmHg AV Velocity Time Integral 37.2 cm LVOT Peak Velocity 95.8 cm/s LVOT Peak Gradient 3.7 mmHg LVOT Velocity Time Integral 24.5 cm LVOT Stroke Volume 111.5 cm??? LVOT Stroke Volume Index 51.3 ml/m??? LVOT Cardiac Index 2844.9 cm???/min???m??? AV Area Cont Eq vti 3.0 cm??? AV Area Cont Eq pk 2.9 cm??? MV Area PHT 3.1 cm??? Mitral E Point Velocity 71.3 cm/s Mitral A Point Velocity 70.8 cm/s Mitral E to A Ratio 1.0 MV Deceleration Time 247.8 ms TR Peak Velocity 274.9 cm/s TR Peak Gradient 30.2 mmHg FINDINGS Left Ventricle Left ventricular ejection fraction is estimated at 50-55 %. Mildly increased left ventricular systolic volume. Left ventricular wall thickness normal. No obvious regional wall motion abnormalities. Right Ventricle Right ventricular dilatation. Normal right ventricular global systolic function. Right Atrium Moderate right atrial dilatation. Left Atrium Mildly increased left atrial volume. Mildly increased left atrial area. Mitral Valve Structurally normal mitral valve. No evidence for mitral valve prolapse. No mitral stenosis. Trace to mild mitral regurgitation. Aortic Valve Trileaflet aortic valve. No aortic valve stenosis or regurgitation. Tricuspid Valve Structurally normal tricuspid valve. No tricuspid stenosis. Mild tricuspid regurgitation. Pulmonic Valve Pulmonic valve not well visualized. Pericardium No pericardial effusion. Aorta Normal size aortic root and proximal ascending aorta. CONCLUSIONS Normal LV function Previewed by: Dr. Ant Brewer MD (Electronically Signed) Final Date: 11 December 2024 11:02
[2024-12-11 11:25] LABS: Glucose,Whole Blood 113 mg/dL (70-110)
[2024-12-11 16:17] LABS: Glucose,Whole Blood 122 mg/dL (70-110)
[2024-12-11 16:23] VITALS: RESP 15
[2024-12-11 20:31] LABS: Glucose,Whole Blood 137 mg/dL (70-110)
[2024-12-11 22:33] LABS: Chol/HDL Ratio 3.38 Ratio
[2024-12-12 06:21] LABS: Glucose,Whole Blood 124 mg/dL (70-110)
[2024-12-12 07:50] VITALS: BP 118/65; TEMP 97.4
[2024-12-12] MEDS: ENOXAPARIN 40 MG/0.4 ML SYRINGE SQ SCH (09:03)
[2024-12-12] MEDS: FAMOTIDINE 20 MG TAB PO SCH (09:03)
[2024-12-12 09:31] VITALS: PULSE 59
--- NOTE | 2024-12-12 09:38 | P.PN ---
Subjective Progress Note Date: 12/12/24 The patient is a pleasant 79-year-old gentleman who is known to our service from before with a past medical history significant for CAD with prior stenting of the LAD in the setting of ACS several years ago as well as diabetes and hypertension and dyslipidemia and thyroid disease and chronic kidney disease. The patient was in his usual state of health till yesterday when he woke up from sleep and stood up trying to walk and felt dizzy and lightheaded. No syncope. No symptoms of any chest pain or chest discomfort or shortness of breath or any feeling of heart racing or fluttering. He came into the emergency department with an evidence of heart rate in the 40s. He was not on any AV charles sara agents. He does have thyroid disease and currently is on thyroid replacement medications. The EKG shows sinus bradycardia. During his hospital stay within the last 24 hours his heart rate has been in the 50s. Troponin is unremarkable. The EKG is as described above. Echocardiogram is pending. Thyroid function test including TSH and free T4 were not checked. The rest of the workup overall is unremarkable beside acute on chronic renal failure and he is known to have chronic kidney disease. The physical examination is remarkable for regular rhythm with a systolic murmur at the right upper sternal border and clear breathing sounds bilaterally and no edema was noted in the lower extremities December 12, 2024 The patient was seen and evaluated this morning with his heart rate continues to be in the 50s but TSH came to be elevated indicating hypothyroidism and they believe that the dose of thyroid replacement medications need to be adjusted. He is asymptomatic. He is not on any AV charles sara agents. The echo showed normal LV systolic function. From a cardiovascular standpoint of view, the patient can be discharged home Assessment Symptomatic bradycardia which has resolved CAD status post PCI of the LAD Thyroid disease with hypothyroidism Multiple comorbid conditions including diabetes and hypertension dyslipidemia Plan Avoid any AV charles sara agents Adjust the dose of thyroid replacement medications The patient can be discharged home Objective - Vital Signs Vital signs: Vital Signs Temp 97.4 F L 12/12/24 07:15 Pulse 59 L 12/12/24 09:27 Resp 15 12/12/24 03:12 BP 118/65 12/12/24 07:15 Pulse Ox 98 12/12/24 08:39 FiO2 Intake & Output 03/25/25 03/26/25 03/26/25 18:59 06:59 18:59 Intake Total 600 Output Total 200 Balance 400 Weight 98.9 kg Intake: Oral 600 Output: Urine 200 Other: Voiding Method Toilet Bedside Commode Toilet # Voids 0 - Labs CBC & Chem 7: 12/10/24 09:33 12/11/24 07:56 Labs: Abnormal Lab Results - Last 24 Hours (Table) 12/11/24 12/11/24 12/11/24 Range/Units 07:56 11:23 16:15 POC Glucose (mg/dL) 113 H 122 H (70-110) mg/dL Triglycerides 194.00 H (0.00-149.00) mg/dL 12/11/24 12/12/24 Range/Units 20:29 06:20 POC Glucose (mg/dL) 137 H 124 H (70-110) mg/dL Triglycerides (0.00-149.00) mg/dL
[2024-12-12] MEDS: LEVOTHYROXINE 25 MCG TAB PO ONE (11:49)
--- NOTE | 2024-12-12 17:58 | P.DS ---
Providers Date of admission: 12/10/24 14:23 Attending physician: Yoni West MD Consults: 12/10/24 14:21 Consult Physician Urgent Consulting Provider: [facility] Consult Reason/Comments: Near syncope, bradycardia Do you want consulting provider notified?: Yes Primary care physician: Pedro Luis Holbrook [facility] Hospital Course: Diagnoses: Dizziness presyncope, related to bradycardia which is improved upon discharge Symptomatic bradycardia mostly secondary to donepezil which is discontinued. High TSH with adjusted increase dose of levothyroxine 100 mcg up to 125 mcg upon discharge Diabetes mellitus Hypertension Hyperlipidemia Diabetic nephropathy with chronic kidney disease stage III Obesity with BMI of 31 Hospital course: This is a pleasant 79 years old male with past medical history of multiple medical problems as below Presents because of feeling dizzy. Patient states that this dizziness has been going on on and off for a while but yesterday was really bad because trouble for him he felt he is going to pass out so he decided to come to emergency room no chest pain no dyspnea. Patient was found to have bradycardia. Patient evaluated by rear load truck driver. Patient is not on beta-sara. Patient was noticed to be on donepezil/Aricept which might contribute to bradycardia so it was discontinued and patient informed. TSH was high at 10, patient levothyroxine dose of 100 mcg was increased to 125 mcg. Patient however remains asymptomatic. No chest pain or dyspnea or any other symptoms Patient was cleared for discharge by rear load truck driver. I discussed the case with Dr. Baker who told me patient can go home today Problems and management plan were discussed with the patient and he verbalized understanding and acceptance Patient was found stable and can be discharged home in guarded prognosis however he needs follow-up as an outpatient. Patient was instructed to follow up with PCP within one week and patient agrees Patient was instructed to follow-up with Dr. Baker in 1 to 2 weeks and he agrees Physical exam Gen: patient is a AAOx3, no distress CVS: S1-S2, RRR, no murmur Lungs: B/L CTA, no wheezing Abdomen: soft, no distention, no tenderness, positive bowel sounds Extremity: no leg edema or induration Time spent more than 35 minutes Plan - Discharge Summary New Discharge Prescriptions: New RX: Levothyroxine Sodium 125 mcg PO DAILY #30 tab Continue RX: Atorvastatin [Lipitor] 80 mg PO DAILY RX: Aspirin [Adult Low Dose Aspirin EC] 81 mg PO DAILY RX: Ipratropium Nebulized [Atrovent Nebulized 0.2 MG/ML] 0.5 mg INHALATION RT-Q6H PRN PRN Reason: Shortness Of Breath RX: Albuterol Nebulized [Ventolin Nebulized] 2.5 mg INHALATION RT-TID PRN PRN Reason: Shortness Of Breath RX: Cinnamon Bark [Cinnamon] 1,000 mg PO DAILY RX: Dapagliflozin Propanediol [Farxiga] 5 mg PO DAILY #30 tab RX: Sertraline [Zoloft] 50 mg PO DAILY RX: Midodrine HCl [ProAmatine] 10 mg PO BID RX: Multivit-Mins/Iron/Folic/Lycop [Centrum Men's Tablet] 1 tab PO DAILY RX: Lidocaine 5% Patch [Lidoderm 5% Patch] 1 patch TRANSDERM DAILY RX: Finasteride [Proscar] 5 mg PO DAILY RX: Vit C/E/Zn/Coppr/Lutein/Zeaxan [Preservision Areds 2 Softgel] 1 cap PO BID RX: Oxybutynin ER [Ditropan XL] 10 mg PO DAILY RX: Albuterol Inhaler [Ventolin Hfa Inhaler] 2 puff INHALATION RT-Q6H PRN PRN Reason: Shortness Of Breath RX: sitaGLIPtin PHOS/metFORMIN HCL [Janumet 50-1,000 mg Tablet] 1 tab PO BID- W/MEALS RX: Fluticasone/Umeclidin/Vilanter [Trelegy Ellipta 100-62.5-25] 1 puff INHALATION RT-DAILY RX: Azelastine HCl [Astelin Nasal [place]] 2 spr EA NOSTRIL BID PRN PRN Reason: Allergy Symptoms RX: Montelukast [Singulair] 10 mg PO HS RX: Enalapril Maleate 2.5 mg PO DAILY [place] 3-6-9 1200mg 1 cap PO DAILY RX: Sodium Bicarbonate Tab 650 mg PO DAILY Discontinued Donepezil [Aricept] 10 mg PO HS Levothyroxine Sodium [Synthroid] 100 mcg PO DAILY Discharge Medication List RX: Atorvastatin [Lipitor] 80 mg PO DAILY 11/28/14 [History] RX: Aspirin [Adult Low Dose Aspirin EC] 81 mg PO DAILY 08/14/17 [History] RX: Albuterol Nebulized [Ventolin Nebulized] 2.5 mg INHALATION RT-TID PRN 08/11/19 [History] RX: Cinnamon Bark [Cinnamon] 1,000 mg PO DAILY 08/11/19 [History] RX: Ipratropium Nebulized [Atrovent Nebulized 0.2 MG/ML] 0.5 mg INHALATION RT- Q6H PRN 08/11/19 [History] RX: Albuterol Inhaler [Ventolin Hfa Inhaler] 2 puff INHALATION RT-Q6H PRN 07/28/22 [History] RX: Azelastine HCl [Astelin Nasal [place]] 2 spr EA NOSTRIL BID PRN 07/28/22 [History] RX: Fluticasone/Umeclidin/Vilanter [Trelegy Ellipta 100-62.5-25] 1 puff INHALATION RT-DAILY 07/28/22 [History] RX: sitaGLIPtin PHOS/metFORMIN HCL [Janumet 50-1,000 mg Tablet] 1 tab PO BID- W/MEALS 07/28/22 [History] RX: Dapagliflozin Propanediol [Farxiga] 5 mg PO DAILY #30 tab 07/30/22 [Rx] [place] 3-6-9 1200mg 1 cap PO DAILY 12/10/24 [History] RX: Enalapril Maleate 2.5 mg PO DAILY 12/10/24 [History] RX: Finasteride [Proscar] 5 mg PO DAILY 12/10/24 [History] RX: Lidocaine 5% Patch [Lidoderm 5% Patch] 1 patch TRANSDERM DAILY 12/10/24 [History] RX: Midodrine HCl [ProAmatine] 10 mg PO BID 12/10/24 [History] RX: Montelukast [Singulair] 10 mg PO HS 12/10/24 [History] RX: Multivit-Mins/Iron/Folic/Lycop [Centrum Men's Tablet] 1 tab PO DAILY 12/10/24 [History] RX: Oxybutynin ER [Ditropan XL] 10 mg PO DAILY 12/10/24 [History] RX: Sertraline [Zoloft] 50 mg PO DAILY 12/10/24 [History] RX: Sodium Bicarbonate Tab 650 mg PO DAILY 12/10/24 [History] RX: Vit C/E/Zn/Coppr/Lutein/Zeaxan [Preservision Areds 2 Softgel] 1 cap PO BID 12/10/24 [History] RX: Levothyroxine Sodium 125 mcg PO DAILY #30 tab 12/12/24 [Rx] Follow up Appointment(s)/Referral(s): Armin Morel MD [STAFF PHYSICIAN] - 2 Weeks (Apt is with Dr. Babin, office will call you with an apt. ) None,Stated [REFERRING] - 1-2 days Patient Instructions/Handouts: Bradycardia (DC), Near Syncope (DC) Activity/Diet/Wound Care/Special Instructions: Heart healthy diet Activity is restricted till you see your doctor Please stop Donepezil (aricept) as it might contribute to the slow heart rate Discharge Disposition: HOME SELF-CARE
[2024-12-13] MEDS ORDERED: LEVOTHYROXINE 25 MCG TAB PO ONE ×2 (11:00→11:28)
--- NOTE | 2024-12-18 19:34 | CDI ---
Documentation Clarification Form Date: From: Oliver Rivas Phone: Admit Date: 12/10/2024 02:23:00 PM Patient Name: Hang Prajapati Visit Number: [id number] Discharge Date: 12/12/2024 12:02:00 PM ATTENTION: The Clinical Documentation Specialists (CDI) and [facility] Coding Staff appreciate your assistance in clarifying documentation. Please respond to the clarification below the line at the bottom and electronically sign. The CDI & [facility] Coding staff will review the response and follow-up if needed. Please note: Queries are made part of the Legal Health Record. If you have any questions, please contact the author of this message via ITS. Doctor/Provider: Yoni E Sheet Conflicting documentation has been found in the medical record. As attending physician, please provide clarification. 12/10 [place] the attending documented creatinine 2.0 which is baseline 1.7 10/20 also in [place] Diabetic nephropathy with CKD stage III. 12/12 Cardiology: The rest of the workup overall is unremarkable beside acute on chronic renal failure, and he is known to have chronic kidney disease. Lab: 12/10 Cr 2.02 12/11 1.80 Treatment: none Please clarify which diagnosis is most appropriate: [ ] EDD [ x ] Acute on Chronic Kidney Disease [ ] Other (please specify) [ ] Unable to determine MTDD
== END 2024-12-12 12:02 | disposition home or self-care (01) | DRG 309 ==
LOC: SUPCPDRO 08:57 → EC 08:57 → 3SCARD 14:23
PROVIDERS: ADMIT Internal Medicine; ATTEND Internal Medicine
DX: R00.1 Bradycardia, unspecified (principal); N17.9 Acute kidney failure, unspecified; J44.9 Chronic obstructive pulmonary disease, unspecified; E11.22 Type 2 diabetes mellitus with diabetic chronic kidney disease; N18.30 Chronic kidney disease, stage 3 unspecified; E03.9 Hypothyroidism, unspecified; I12.9 Hypertensive chronic kidney disease with stage 1 through stage 4 chronic kidney disease, or unspecified chronic kidney disease; E66.9 Obesity, unspecified; I08.1 Rheumatic disorders of both mitral and tricuspid valves; E78.5 Hyperlipidemia, unspecified; I25.10 Atherosclerotic heart disease of native coronary artery without angina pectoris; Z95.5 Presence of coronary angioplasty implant and graft; I25.2 Old myocardial infarction; Z79.890 Hormone replacement therapy; Z68.31 Body mass index [BMI] 31.0-31.9, adult; Z79.01 Long term (current) use of anticoagulants; Z79.82 Long term (current) use of aspirin; Z79.84 Long term (current) use of oral hypoglycemic drugs; Z79.899 Other long term (current) drug therapy; R01.1 Cardiac murmur, unspecified; Z82.49 Family history of ischemic heart disease and other diseases of the circulatory system; Z85.01 Personal history of malignant neoplasm of esophagus; Z85.819 Personal history of malignant neoplasm of unspecified site of lip, oral cavity, and pharynx; Z87.891 Personal history of nicotine dependence; Z88.2 Allergy status to sulfonamides
CPT/HCPCS: 36415; 51798; 70450; 71046; 80048; 80053; 80061; 81003; 83735; 84439; 84443; 84484; 85025; 85610; 85730; 93005; 93306; 94760; 99285

== ENCOUNTER 2025-01-07 08:01 | Day surgery (SDC) | payer MEDICARE ==
[2025-01-07] MEDS: LACTATED RINGERS 1,000 ML IV SCH (08:40)
[2025-01-07] MEDS: IV FLUID CONTINUATION 1,000 ML IV ONE (08:40)
[2025-01-07] MEDS: LIDOCAINE 1% (10MG/ML) FOR IV START INTRADERMA PRN (08:40)
[2025-01-07 08:49] VITALS: TEMP 96.7
[2025-01-07] MEDS ORDERED: PROPOFOL 10 MG/ML 20 ML VIAL IV ONE (08:52)
[2025-01-07 08:55] LABS: Glucose,Whole Blood 166 mg/dL (70-110)
[2025-01-07] MEDS: LACTATED RINGERS 1,000 ML IV ONE (09:19)
--- NOTE | 2025-01-07 09:34 | P.PCN ---
Date of Procedure: 01/07/25 Preoperative Diagnosis: Screening Postoperative Diagnosis: Hepatic flexure polyp Cecal polyp Procedure(s) Performed: Colonoscopy with forcep polypectomy Anesthesia: MAC Surgeon: Daniela Wakefield Pathology: other (Hepatic flexure polyp, cecal polyp) Condition: stable Disposition: same day Indications for Procedure: 79-year-old male presents today for screening colonoscopy. He does have history of polyps. Denies any blood in his stool. Denies family history of colon cancer. Risks, benefits and alternatives were provided patient. All questions answered Operative Findings: Cecal polyp Hepatic flexure polyp Description of Procedure: The patient was brought to the endoscopy suite and placed in left lateral decubitus position and adequate sedation was achieved using conscious sedation. Digital rectal exam was performed and mild internal hemorrhoids were palpated. An endoscope was then placed in the rectum and advanced to the cecum as identified by landmarks including the appendiceal orifice and the ileocecal valve. The prep was good. The colonoscope was then slowly withdrawn, examining for any mucosal abnormalities. The cecum, ascending, transverse, descending and sigmoid colon were visualized adequately. There were no large neoplastic lesions noted throughout the colon. No obvious diverticulosis. 2 small polyps were encountered. 1 was in the hepatic flexure and 1 was in the cecum. Both were removed with forcep polypectomy. Hemostasis was maintained. Retroflexion was performed in the rectum and internal hemorrhoid. Excess air was removed, the colonoscope withdrawn and the procedure terminated. The patient was then transferred to the recovery unit in stable condition. Repeat colonoscopy should be performed based on symptoms due to the patient's age.
[2025-01-07 09:36] VITALS: BP 125/62; PULSE 54; RESP 18
== END 2025-01-07 09:57 | disposition home or self-care (01) ==
LOC: ORWHC2ENDO 08:01
PROVIDERS: ATTEND Surgery
DX: Z12.11 Encounter for screening for malignant neoplasm of colon (principal); Z86.0100 Personal history of colon polyps, unspecified; D12.0 Benign neoplasm of cecum; D12.3 Benign neoplasm of transverse colon
CPT/HCPCS: 45380; J2704; 88305

== ENCOUNTER 2025-01-31 15:22 | Observation (INO) | payer MEDICARE ==
--- NOTE | 2025-01-31 15:47 | ED ---
General Adult HPI - General Source: patient, RN notes reviewed Mode of arrival: ambulatory Limitations: no limitations <José Manuel Boudreaux - Last Filed: 01/31/25 15:46> <Debi Allison - Last Filed: 02/01/25 13:14> - General Stated complaint: ABN LABS Time Seen by Provider: 01/31/25 15:35 - History of Present Illness Initial comments: Quick note 80-year-old male presents emergency department from PCPs office chief complaint of shortness of breath. Patient had worsening shortness of breath, cough congestion patient also has concerns of possible worsening kidney disease. Patient was sent over by Dr. Finch for further evaluation and possible admission. (José Manuel Boudreaux) Patient is a pleasant 80 y/o gentleman presenting from his PCP's office for generalized weakness and shortness of breath. History obtained from pt and . They state pt has had about 3 days or worsening shortness of breath and cough productive of thick sputum. Additionally, he has had a harder time getting out of bed and getting around without assistance, to the point where he will become incontinent of urine on his way to the bathroom. Pt's states the pt is now so weak that he cannot sit up without assistance. Pt denies chest pain, hemoptysis, fevers, chills, abdominal pain, nausea, vomiting, diarrhea, melena or hematochezia. No focal numbness or weakness. Pt's states he becomes easily frustrated when he cannot hear part of a conversation but otherwise he remains at his baseline mental status. No recent falls. No new back pain or numbness of the LE. (Debi Allison) - Related Data Home Medications Medication Instructions Recorded Confirmed Atorvastatin [Lipitor] 80 mg PO DAILY 11/28/14 01/31/25 Aspirin [Adult Low Dose Aspirin EC] 81 mg PO HS 08/14/17 01/31/25 Cinnamon Bark [Cinnamon] 500 mg PO BID 08/11/19 01/31/25 Ipratropium Nebulized [Atrovent 0.5 mg INHALATION RT-QID PRN 08/11/19 01/31/25 Nebulized 0.2 MG/ML] Albuterol Inhaler [Ventolin Hfa 2 puff INHALATION RT-QID PRN 07/28/22 01/31/25 Inhaler] Fluticasone/Umeclidin/Vilanter 1 puff INHALATION RT-DAILY 07/28/22 01/31/25 [Trelegy Ellipta 100-62.5-25] sitaGLIPtin PHOS/metFORMIN HCL 1 tab PO BID-W/MEALS 07/28/22 01/31/25 [Janumet 50-1,000 mg Tablet] Enalapril Maleate 2.5 mg PO DAILY 12/10/24 01/31/25 Finasteride [Proscar] 5 mg PO DAILY 12/10/24 01/31/25 Midodrine HCl [ProAmatine] 10 mg PO BID 12/10/24 01/31/25 Montelukast [Singulair] 10 mg PO HS 12/10/24 01/31/25 Oxybutynin ER [Ditropan XL] 10 mg PO DAILY 12/10/24 01/31/25 Sertraline [Zoloft] 50 mg PO DAILY 12/10/24 01/31/25 Sodium Bicarbonate Tab 650 mg PO DAILY 12/10/24 01/31/25 Vit C/E/Zn/Coppr/Lutein/Zeaxan 1 cap PO BID 12/10/24 01/31/25 [Preservision Areds 2 Softgel] Dapagliflozin Propanediol [Farxiga] 10 mg PO DAILY 01/31/25 01/31/25 Donepezil [Aricept] 10 mg PO HS 01/31/25 01/31/25 Levothyroxine Sodium [Synthroid] 100 mcg PO DAILY 01/31/25 01/31/25 Lidocaine 5% Patch [Lidoderm] 1 patch TOPICAL DAILY PRN 01/31/25 01/31/25 Mv-Min/Folic/K1/Lycopen/Lutein 1 tab PO DAILY 01/31/25 01/31/25 [Centrum Silver Men Tablet] Allergies Allergy/AdvReac Type Severity Reaction Status Date / Time Sulfa (Sulfonamide Allergy Unknown Verified 01/31/25 19:14 Antibiotics) Childhood Review of Systems ROS Other: All systems not noted in ROS Statement are negative. <José Manuel Boudreaux - Last Filed: 01/31/25 15:46> ROS Other: All systems not noted in ROS Statement are negative. <Debi Allison - Last Filed: 02/01/25 13:14> ROS Statement: Those systems with pertinent positive or pertinent negative responses have been documented in the HPI. Past Medical History Past Medical History: Coronary Artery Disease (CAD), Cancer, Chest Pain / Angina, COPD, Diabetes Mellitus, Hyperlipidemia, Myocardial Infarction (NH), Musculoskeletal Disorder, Thyroid Disorder Additional Past Medical History / Comment(s): HX OF ESOPHAGEAL CANCER WITH RADIATION [place](2014), TINNITIS., FELL OUT OF ATTIC JUL 2017 AND HAS COMPRESSION FX l-2 (WEARING BACK SUPPORT) ., HAYFEVER ALLERGIES., HAVING DIFFICULTY SWALLOWING SOME FOODS. Stage 4 Throat CA Last Myocardial Infarction Date:: 2001 History of Any Multi-Drug Resistant Organisms: None Reported Past Surgical History: Heart Catheterization With Stent Additional Past Surgical History / Comment(s): cyst removal from back, Toe surgery (child) Past Anesthesia/Blood Transfusion Reactions: No Reported Reaction, Motion Sickness Additional Past Anesthesia/Blood Transfusion Reaction / Comment(s): dizziness when he closes his eyes in the shower. Date of Last Stent Placement:: 2001 Past Alcohol Use History: Occasional - Past Family History Father Family Medical History: Hypertension <José Manuel Boudreaux - Last Filed: 01/31/25 15:46> General Exam <José Manuel Boudreaux - Last Filed: 01/31/25 15:46> <Debi Allison - Last Filed: 02/01/25 13:14> - General Exam Comments Initial Comments: Visual Physical Exam Vital signs reviewed General: Well-appearing, nontoxic, no acute distress. Head: Normocephalic, atraumatic Eyes: PERRLA, EOMI ENT: Airway patent Chest: Nonlabored breathing Skin: No visual rash, normal skin tone Neuro: Alert and oriented 3 Musculoskeletal: No gross abnormalities (José Manuel Boudreaux) PE: CONSTITUTIONAL: No apparent distress, well appearing resting comfortably SKIN: Warm, dry, no jaundice, hives or petechiae EYES: Pupils are equally round, extraocular movements intact without nystagmus, clear conjunctiva, non-icteric sclera HENT: Normocephalic, atraumatic, moist mucus membranes, oropharynx clear without exudates NECK: , Full range of motion, normal appearance PULMONARY: Rhonchi in the bilateral lung heller worse on the left than the right, somewhat decreased air movement with scant wheezes, no accessory muscle use or stridor, normal excursion CARDIOVASCULAR: Regular rate, rhythm, normal S1 and S2. No appreciated murmurs, rubs or gallops. Strong radial pulses with intact distal perfusion. No lower extremity edema GASTROINTESTINAL: Soft, active bowel sounds throughout, non-tender, non- distended, no palpable masses, no rebound or guarding. No hepatosplenomegaly MUSCULOSKELETAL: Extremities have no gross deformity, no edema, redness, or swelling. NEUROLOGIC:_a/o x 3, GCS 15, normal mentation and speech. Moves all extremities x 4 without motor or sensory deficit PSYCHIATRIC:_normal mood and affect, thought process is clear and linear (Debi Allison) Course Vital Signs 01/31/25 01/31/25 01/31/25 15:50 18:56 20:54 Temperature 97.4 F L 98.7 F Pulse Rate 78 82 88 Respiratory 20 17 18 Rate Blood Pressure 125/88 110/54 120/76 O2 Sat by Pulse 92 L 96 94 L Oximetry EKG Findings - EKG Comments: EKG Findings:: Sinus rhythm rate 76 bpm intervals within acceptable limits, normal axis, T wave inversion lead V1, V2, no significant ST elevations or depre ssions, no arrhythmia, right bundle branch block <Deib Allison - Last Filed: 02/01/25 13:14> Medical Decision Making <José Manuel Boudreaux - Last Filed: 01/31/25 15:46> - Lab Data Result diagrams: 01/31/25 16:06 01/31/25 16:06 <Debi Allison - Last Filed: 02/01/25 13:14> - Medical Decision Making I completed the quick note portion of this chart signed José Manuel Boudreaux PA-C (José Manuel Boudreaux) Was pt. sent in by a medical professional or institution ([facility], [facility], urgent care, hospital, or longterm...) When possible be specific @ -No Did you speak to anyone other than the patient for history (EMS, parent, family, police, friend...)? What history was obtained from this source Patient's assisted in providing history, stating pt has had worsening weakness for 3 days Did you review nursing and triage notes (agree or disagree)? Why? @ -I reviewed nursing and triage notes Were old charts reviewed (outside hosp., previous admission, EMS record, old EKG, old radiological studies, urgent care reports/EKG's, longterm records)? Report findings @ -[Medical records were not reviewed Differential Diagnosis (chest pain, altered mental status, abdominal pain women, abdominal pain men, vaginal bleeding, weakness, fever, dyspnea, syncope, headache, dizziness, GI bleed, back pain, seizure, CVA, palpatations, mental health, musculoskeletal)? @Differential Weakness: Hypoglycemia, shock, sepsis, infection hyponatremia or other electrolyte abnormality, anemia, ACS adverse medicine reaction,this is not meant to be an all-inclusive list. EKG interpreted by me (3pts min.). @ -As above X-rays interpreted by me (1pt min.). @Personally reviewed chest x-ray, appears to show left lower lobe consolidation, no pneumothorax, radiologist read as no acute process, combined with patient's clinical presentation, I disagree with radiology interpretation CT interpreted by me (1pt min.). @ -None done U/S interpreted by me (1pt. min.). @ -None done What testing was considered but not performed or refused? (CT, X-rays, U/S, labs)? Why? @ -None What meds were considered but not given or refused? Why? @ -None Did you discuss the management of the patient with other professionals (professionals i.e. , PA, [facility], lab, RT, psych nurse, social science instructor, christian science healer, teacher, licensed mortgage loan officer, case mgr)? Give summary @ -No Was smoking cessation discussed for >3mins.? @ -No Was critical care preformed (if so, how long)? @ -No Were there social determinants of health that impacted care today? How? (Homelessness, low income, unemployed, alcoholism, drug addiction, transportation, low edu. Level, literacy, decrease access to med. care, prison, rehab)? @ -No Was there de-escalation of care discussed even if they declined (Discuss DNR or withdrawal of care, Hospice)? @ -No What co-morbidities impacted this encounter? (DM, HTN, Smoking, COPD, CAD, Cancer, CVA, ARF, Chemo, Hep., AIDS, mental health diagnosis, sleep apnea, morbid obesity)? @COPD Was patient admitted / discharged? Hospital course, mention meds given and route, prescriptions, significant lab abnormalities, going to OR and other pertinent info. @ -Admission- This is a 80-year-old gentleman presenting today for generalized weakness, cough, shortness of breath and new urinary incontinence though seems to be secondary to weakness, as this occurs when pt cannot get to the bathroom quickly enough 2/2 weakness. Pt seen and evaluated in hallway bed due to multiple boarding pt's in the ED, limiting physical exam. Pt and were agreeable to discussing pt's case while patient in ED hallway bed. Rhonchi and rales on exam, worse on the left than the right, scant wheeze, with thick green sputum in basin beside the pt. No accessory muscle use or stridor. Pt had pulse ox 92% on arrival, which is acceptable for hx of COPD. Preliminary labs and imaging were ordered by triage provider in order to expedite pt's care while waiting in the waiting room for an ED bed. I personally reviewed CXR, though read as no acute process by radiologist, appears to show questioable LLL consolidation. With increasing sputum production, exam consistent with PNA, and chest XR findings, pt will be started on zosyn and admitted for PNA. Additionally, pt noted to have EDD, renal US ordered. Potassium 5.3, without corresponding EKG changes. Pt will receive albuterol due to wheezing on exam with hx COPD, and 10 mg decadron. Discussed these findings with pt as w ell as plan for admission. Pt and agreeable with POC. Case discussed with ISMAEL Padilla who kindly accepted pt for admission. Undiagnosed new problem with uncertain prognosis @ -No Drug Therapy requiring intensive monitoring for toxicity (Heparin, Nitro, Insulin, Cardizem)? @ -No Were any procedures done? @ -No Diagnosis/symptom? Pneumonia, EDD, COPD exacerbation, generalized weakness Acute, or Chronic, or Acute on Chronic? acute Uncomplicated (without systemic symptoms) or Complicated (systemic symptoms)? @complicated Side effects of treatment @ -No Exacerbation, Progression, or Severe Exacerbation? @ -No Poses a threat to life or bodily function? How? (Chest pain, USA, NH, pneumonia, PE, COPD, DKA, ARF, appy, cholecystitis, CVA, Diverticulitis, Homicidal, Suicidal, threat to staff... and all critical care pts) Yes if left untreated could lead to sepsis and septic shock, as well as renal failure (Debi Allison) - Lab Data Lab Results 01/31/25 01/31/25 01/31/25 Range/Units 16:06 16:06 16:06 WBC 10.24 H (4.50-10.00) 10*3/uL RBC 4.19 L (4.40-5.60) 10*6/uL Hgb 11.5 L (13.0-17.0) g/dL Hct 36.3 L (39.6-50.0) % MCV 86.6 (80.0-97.0) fL MCH 27.4 (27.0-32.0) pg MCHC 31.7 L (32.0-37.0) g/dL Plt Count 141 (140-440) 10*3/uL MPV 11.1 (9.5-12.2) fL Immature Gran % (Auto) 0.4 % Neutrophils % 81.6 % Lymphocytes % 8.0 % Monocytes % 7.7 % Eosinophils % 2.1 % Basophils % 0.2 % Immature Gran # 0.04 (0.00-0.04) 10*3/uL Neutrophils # 8.36 H (1.80-7.70) 10*3/uL Lymphocytes # 0.82 L (0.90-5.00) 10*3/uL Monocytes # 0.79 (0.20-1.00) 10*3/uL Eosinophils # 0.21 (0.04-0.35) 10*3/uL Basophils # 0.02 (0.00-0.10) 10*3/uL PT 10.9 (10.0-12.5) sec INR 1.0 (<1.2) APTT 25.7 (22.0-30.0) sec Sodium 141 (137-145) mmol/L Potassium 5.3 H (3.5-5.1) mmol/L Chloride 104 (98-107) mmol/L Carbon Dioxide 27 (22-30) mmol/L Anion Gap 10 mmol/L BUN 39 H (9-20) mg/dL Creatinine 2.32 H (0.66-1.25) mg/dL Est GFR (CKD-EPI)AfAm 30 (>60 ml/min/1.73 sqM) Est GFR (CKD-EPI)NonAf 26 (>60 ml/min/1.73 sqM) Glucose 135 H (74-99) mg/dL Plasma Lactic Acid Don (0.7-2.0) mmol/L Calcium 9.9 (8.4-10.2) mg/dL Magnesium 2.1 (1.6-2.3) mg/dL Total Bilirubin 1.0 (0.2-1.3) mg/dL AST 18 (17-59) U/L ALT 20 (4-49) U/L Alkaline Phosphatase 104 (38-126) U/L Troponin I (0.000-0.034) ng/mL NT-Pro-B Natriuret Pep 1070 pg/mL Total Protein 6.7 (6.3-8.2) g/dL Albumin 4.1 (3.5-5.0) g/dL 01/31/25 01/31/25 Range/Units 16:06 16:06 WBC (4.50-10.00) 10*3/uL RBC (4.40-5.60) 10*6/uL Hgb (13.0-17.0) g/dL Hct (39.6-50.0) % MCV (80.0-97.0) fL MCH (27.0-32.0) pg MCHC (32.0-37.0) g/dL Plt Count (140-440) 10*3/uL MPV (9.5-12.2) fL Immature Gran % (Auto) % Neutrophils % % Lymphocytes % % Monocytes % % Eosinophils % % Basophils % % Immature Gran # (0.00-0.04) 10*3/uL Neutrophils # (1.80-7.70) 10*3/uL Lymphocytes # (0.90-5.00) 10*3/uL Monocytes # (0.20-1.00) 10*3/uL Eosinophils # (0.04-0.35) 10*3/uL Basophils # (0.00-0.10) 10*3/uL PT (10.0-12.5) sec INR (<1.2) APTT (22.0-30.0) sec Sodium (137-145) mmol/L Potassium (3.5-5.1) mmol/L Chloride (98-107) mmol/L Carbon Dioxide (22-30) mmol/L Anion Gap mmol/L BUN (9-20) mg/dL Creatinine (0.66-1.25) mg/dL Est GFR (CKD-EPI)AfAm (>60 ml/min/1.73 sqM) Est GFR (CKD-EPI)NonAf (>60 ml/min/1.73 sqM) Glucose (74-99) mg/dL Plasma Lactic Acid Don 1.4 (0.7-2.0) mmol/L Calcium (8.4-10.2) mg/dL Magnesium (1.6-2.3) mg/dL Total Bilirubin (0.2-1.3) mg/dL AST (17-59) U/L ALT (4-49) U/L Alkaline Phosphatase (38-126) U/L Troponin I <0.012 (0.000-0.034) ng/mL NT-Pro-B Natriuret Pep pg/mL Total Protein (6.3-8.2) g/dL Albumin (3.5-5.0) g/dL Disposition <José Manuel Boudreaux - Last Filed: 01/31/25 15:46> <Debi Allison - Last Filed: 02/01/25 13:14> Clinical Impression: Pneumonia, EDD (acute kidney injury) Disposition: ADMITTED IP TO THIS HOSP Condition: Stable
[2025-01-31 16:18] LABS: Basophils # (A) 0.02 10*3/uL (0.00-0.10); Basophils % (A) 0.2 %; Eosinophils # (A) 0.21 10*3/uL (0.04-0.35); Eosinophils % (A) 2.1 %; HCT 36.3 % (39.6-50.0); HGB 11.5 g/dL (13.0-17.0); Lymphocytes # (A) 0.82 10*3/uL (0.90-5.00); MCH 27.4 pg (27.0-32.0); MCHC 31.7 g/dL (32.0-37.0); MCV 86.6 fL (80.0-97.0); Mean Platelet Volume 11.1 fL (9.5-12.2); Monocytes # (A) 0.79 10*3/uL (0.20-1.00); Monocytes % (A) 7.7 %; Neutrophils # (A) 8.36 10*3/uL (1.80-7.70); Neutrophils % (A) 81.6 %; Platelet Count 141 10*3/uL (140-440); RBC 4.19 10*6/uL (4.40-5.60); RDW 15.2 % (11.5-14.5); WBC 10.24 10*3/uL (4.50-10.00)
[2025-01-31 16:27] LABS: Partial Thromboplastin Time 25.7 sec (22.0-30.0); Prothrombin Time 10.9 sec (10.0-12.5)
[2025-01-31 16:35] LABS: ALT 20 U/L (4-49); AST 18 U/L (17-59); African American GFR (CKD) 30 (>60 ml/min/1.73 sqM); Albumin 4.1 g/dL (3.5-5.0); Alkaline Phosphatase 104 U/L (38-126); Anion Gap 10 mmol/L; Blood Urea Nitrogen 39 mg/dL (9-20); Calcium 9.9 mg/dL (8.4-10.2); Carbon Dioxide 27 mmol/L (22-30); Chloride 104 mmol/L (98-107); Glucose 135 mg/dL (74-99); Magnesium 2.1 mg/dL (1.6-2.3); Non-African American GFR(CKD) 26 (>60 ml/min/1.73 sqM); Potassium 5.3 mmol/L (3.5-5.1); Sodium 141 mmol/L (137-145); Total Protein 6.7 g/dL (6.3-8.2)
[2025-01-31 16:42] LABS: NT-Pro-B-Type Natriuretic Pept 1070 pg/mL
--- NOTE | 2025-01-31 16:46 | XR ---
EXAMINATION TYPE: XR chest 2V DATE OF EXAM: 01/31/2025 4:35 PM COMPARISON: Chest radiographs from 12/10/2024 TECHNIQUE: XR chest 2V Frontal and lateral views of the chest. CLINICAL INDICATION:Male, 80 years old with history of difficulty breathing; FINDINGS: Lungs/Pleura: There is flattening of the diaphragm with increased lucency of the lungs. No evidence o f pneumothorax, pleural effusion or focal consolidation. Prominent right pericardial fat pad redemons trated. Pulmonary vascularity: Unremarkable. Heart/mediastinum: Cardiomediastinal silhouette is unremarkable. Atherosclerotic calcifications are seen in the aorta. Musculoskeletal: No acute osseous pathology. DISH of the thoracic spine. IMPRESSION: 1. No acute cardiopulmonary disease process. 2. COPD changes. [facility], , 01/31/2025 4:44 PM
[2025-01-31] MEDS: DEXAMETHASONE SOD PHOSPHATE 10 MG/ML 1 ML VIAL IVP STA (18:54)
[2025-01-31] MEDS: PIPERACILLIN-TAZOBACTAM 3.375 GM in SODIUM CHLORIDE 0.9% 100 ML IVPB SCH (18:55)
[2025-01-31] MEDS ORDERED: PNEUMONIA PROTOCOL UTILIZED 1 EACH MISC PO PRN (19:50)
[2025-01-31] MEDS ORDERED: IPRATROPIUM-ALBUTEROL 3 ML NEB INHALATION PRN (19:50)
--- NOTE | 2025-01-31 20:27 | US ---
EXAMINATION TYPE: US renals and bladder DATE OF EXAM: 01/31/2025 COMPARISON: US 09/25/24. CT 10/09/24 CLINICAL INDICATION: Male, 80 years old with history of worsening renal function; CKD TECHNIQUE: Grayscale imaging of the bilateral kidneys and urinary bladder: FINDINGS: EXAM MEASUREMENTS: Right Kidney: 11.7 x 4.8 x 4.3 cm Left Kidney: 11.1 x 6.1 x 5.4 cm limited due to pt body habitus Right Kidney: multiple anechoic areas seen largest measuring 1.9 x 1.9 x 1.9 in the superior pole Left Kidney: multiple anechoic areas seen largest measuring 6.2 x 6.0 x 6.5cm Bladder: wnl Bilateral Jets seen: right only There is no evidence for hydronephrosis at this point in time. No nephrolithiasis is seen. No solid renal masses are identified. Multiple bilateral simple appearing anechoic renal cysts. The urinary bladder is anechoic. Corticomedullary differentiation is maintained bilaterally. No significant corti anjana thinning identified. Only the right ureteral jet identified. IMPRESSION: 1. No hydronephrosis or nephrolithiasis. 2. Bilateral simple appearing renal cysts. No follow-up recommended. [facility], , 01/31/2025 8:24 PM
[2025-01-31] MEDS: IPRATROPIUM-ALBUTEROL 3 ML NEB INHALATION STA (20:31)
[2025-01-31] MEDS: HEPARIN SODIUM,PORCINE 5,000 UNIT/ML 1 ML VIAL SQ SCH (23:27)
[2025-02-01] MEDS: methylPREDNISolone SOD SUCCI 125 MG/2 ML VIAL IV SCH (05:41)
--- NOTE | 2025-02-01 07:21 | P.CNPUL ---
History of Present Illness Consult date: 02/01/25 Requesting physician: Debi Allison Reason for consult: COPD Chief complaint: Shortness of breath, cough History of present illness: Patient is a 80-year-old male with past medical history significant for COPD, hyperlipidemia, diabetes mellitus, hypothyroidism, chronic kidney disease stage III, laryngeal cancer, CAD with previous PCI/stent. Patient does follow in the pulmonary office with Dr. Neville for management of his severe COPD. He has an FEV1 36% predicted at baseline. Normally, maintained on Trelegy maintenance inhaler. Told to come to the emergency department yesterday by his primary care provider Dr. Barrientos. Over the last 4 to 5 days patient has had headache, runny nose, sore throat and chest congestion. Followed by increased work of breathing. Cough was previously productive with light green phlegm and now is nonproductive. Continues to have cough and wheezing. Also, outpatient labs concerning for worsening acute on chronic kidney disease. Workup at the emerge ncy department including a chest x-ray which did not show any acute cardiopulmonary process. There was hyperinflation and flattening of the diaphragm consistent with COPD. No ultrasound did not show any hydronephrosis or nephrolithiasis. Bilateral simple appearing renal cyst. Labs including CBC with a WBC count of 10.24, hemoglobin 11.5, platelets 141. CMP: Sodium 141, potassium 5.3, chloride 104, serum bicarb 27, BUN 39, creatinine 2.32, glucose 135. Troponin less than 0.012. NT proBNP 1070. EKG: Sinus rhythm, rate 76 bpm, RBBB pattern. Patient currently being evaluated in the observation unit. He is resting comfortably on 2 L/min nasal cannula. Denies home O2 use. Endorses above-mentioned symptoms. Continues to have congested cough which is mostly nonproductive. Denies any hemoptysis. Denies any fevers or chills. Denies any chest pain, heart palpitations, lower extremity edema. Previously loaded with 10 mg of IV Decadron. Also given multiple breathing treatments in the ED. Current vital signs: Temperature 97.6 F, heart rate 71 bpm, blood pressure 144/82 mmHg, nontachypneic, on 2 L/min nasal cannula, SpO2 reading 98% Review of Systems Constitutional: Reports fatigue, Denies chills, Denies fever, Denies poor appetite, Denies weight gain, Denies weight loss Ears, nose, mouth and throat: Reports headache, Reports nasal congestion, Reports nasal discharge, Denies post-nasal drip, Denies sinus pain, Denies sinus pressure, Denies sore throat Cardiovascular: Denies chest pain, Denies leg edema, Denies lightheadedness, Denies orthopnea, Denies palpitations, Denies paroxysmal nocturnal dyspnea, Denies syncope Respiratory: Reports as per HPI Gastrointestinal: Denies abdominal pain, Denies constipation, Denies diarrhea, Denies hematemesis, Denies hematochezia, Denies melena, Denies nausea, Denies vomiting Genitourinary: Denies dysuria, Denies flank pain, Denies hematuria, Denies urinary frequency Musculoskeletal: Denies limitation of motion Integumentary: Denies rash Neurological: Denies head injury, Denies seizures, Denies spasticity Psychiatric: Denies anxiety, Denies depression Past Medical History Past Medical History: Coronary Artery Disease (CAD), Cancer, Chest Pain / Angina, COPD, Diabetes Mellitus, Hyperlipidemia, Myocardial Infarction ([place]), Musculoskeletal Disorder, Renal Disease, Thyroid Disorder Additional Past Medical History / Comment(s): HX OF ESOPHAGEAL CANCER WITH RADIATION [place](2014), TINNITIS., FELL OUT OF ATTIC JUL 2017 AND HAS COMPRESSION FX l-2 (WEARING BACK SUPPORT) ., HAYFEVER ALLERGIES., HAVING DIFFICULTY SWALLOWING SOME FOODS. Stage 4 Throat CA Last Myocardial Infarction Date:: 2001 History of Any Multi-Drug Resistant Organisms: None Reported Past Surgical History: Heart Catheterization With Stent Additional Past Surgical History / Comment(s): cyst removal from back, Toe surgery (child) Past Anesthesia/Blood Transfusion Reactions: No Reported Reaction, Motion Sickness Additional Past Anesthesia/Blood Transfusion Reaction / Comment(s): dizziness when he closes his eyes in the shower. Date of Last Stent Placement:: 2001 Past Psychological History: No Psychological Hx Reported Smoking Status: Former smoker Past Alcohol Use History: Occasional Additional Past Alcohol Use History / Comment(s): quit smoking 2001. smoked 1-2 ppd for 30-35 years. Past Drug Use History: None Reported - Past Family History Father Family Medical History: Hypertension Medications and Allergies Home Medications Medication Instructions Recorded Confirmed Type Atorvastatin [Lipitor] 80 mg PO DAILY 11/28/14 01/31/25 History Aspirin [Adult Low Dose Aspirin EC] 81 mg PO HS 08/14/17 01/31/25 History Cinnamon Bark [Cinnamon] 500 mg PO BID 08/11/19 01/31/25 History Ipratropium Nebulized [Atrovent 0.5 mg INHALATION RT-QID PRN 08/11/19 01/31/25 History Nebulized 0.2 MG/ML] Albuterol Inhaler [Ventolin Hfa 2 puff INHALATION RT-QID PRN 07/28/22 01/31/25 History Inhaler] Fluticasone/Umeclidin/Vilanter 1 puff INHALATION RT-DAILY 07/28/22 01/31/25 History [Trelejody Ellipta 100-62.5-25] sitaGLIPtin PHOS/metFORMIN HCL 1 tab PO BID-W/MEALS 07/28/22 01/31/25 History [Janumet 50-1,000 mg Tablet] Enalapril Maleate 2.5 mg PO DAILY 12/10/24 01/31/25 History Finasteride [Proscar] 5 mg PO DAILY 12/10/24 01/31/25 History Midodrine HCl [ProAmatine] 10 mg PO BID 12/10/24 01/31/25 History Montelukast [Singulair] 10 mg PO HS 12/10/24 01/31/25 History Oxybutynin ER [Ditropan XL] 10 mg PO DAILY 12/10/24 01/31/25 History Sertraline [Zoloft] 50 mg PO DAILY 12/10/24 01/31/25 History Sodium Bicarbonate Tab 650 mg PO DAILY 12/10/24 01/31/25 History Vit C/E/Zn/Coppr/Lutein/Zeaxan 1 cap PO BID 12/10/24 01/31/25 History [Preservision Areds 2 Softgel] Dapagliflozin Propanediol [Farxiga] 10 mg PO DAILY 01/31/25 01/31/25 History Donepezil [Aricept] 10 mg PO HS 01/31/25 01/31/25 History Levothyroxine Sodium [Synthroid] 100 mcg PO DAILY 01/31/25 01/31/25 History Lidocaine 5% Patch [Lidoderm] 1 patch TOPICAL DAILY PRN 01/31/25 01/31/25 History Mv-Min/Folic/K1/Lycopen/Lutein 1 tab PO DAILY 01/31/25 01/31/25 History [Centrum Silver Men Tablet] Allergies Allergy/AdvReac Type Severity Reaction Status Date / Time Sulfa (Sulfonamide Allergy Unknown Verified 01/31/25 19:14 Antibiotics) Childhood Physical Exam Vitals: Vital Signs Temp Pulse Pulse Resp BP BP Pulse Ox 02/01/25 02:00 97.6 F 71 16 144/82 98 01/31/25 21:46 98.7 F 74 16 116/68 95 01/31/25 20:54 98.7 F 88 18 120/76 94 L 01/31/25 18:56 82 17 110/54 96 01/31/25 15:50 97.4 F L 78 20 125/88 92 L Intake and Output 01/31/25 01/31/25 02/01/25 14:59 22:59 06:59 Output Total 200 Balance -200 Output: Urine 200 Other: Voiding Method Urinal Weight 99.79 kg 99.79 kg GENERAL EXAM: Alert, 80-year-old male, comfortable in no apparent distress. HEAD: Normocephalic and atraumatic EYES: Normal reaction of pupils, equal size. NOSE: Clear with pink turbinates. THROAT: No erythema or exudates. NECK: No masses, no JVD. CHEST: No chest wall deformity. LUNGS: Equal air entry with bilateral expiratory wheezing and scattered rhonchi. No conversational dyspnea or accessory muscle use.. CVS: S1 and S2 normal with no audible murmur, regular rhythm. No extra heart sounds ABDOMEN: No hepatosplenomegaly, active bowel sounds, no guarding or rigidity. SPINE: No scoliosis or deformity SKIN: No rashes CENTRAL NERVOUS SYSTEM: No focal deficits, tone is normal in all 4 extremities. EXTREMITIES: There is mild bilateral lower extremity pitting edema. No clubbing or cyanosis. Peripheral pulses are intact. Results - Laboratory Findings CBC and BMP: 01/31/25 16:06 01/31/25 16:06 PT/INR, D-dimer PT 10.9 sec (10.0-12.5) 01/31/25 16:06 INR 1.0 (<1.2) 01/31/25 16:06 Abnormal lab findings: Abnormal Labs 01/31/25 01/31/25 16:06 16:06 WBC 10.24 H RBC 4.19 L Hgb 11.5 L Hct 36.3 L MCHC 31.7 L Neutrophils # 8.36 H Lymphocytes # 0.82 L Potassium 5.3 H BUN 39 H Creatinine 2.32 H Glucose 135 H - Diagnostic Findings Chest x-ray: image reviewed Assessment and Plan Assessment: Acute COPD exacerbation Acute hypoxemic respiratory failure, currently on 2 L/min nasal cannula, secondary to above Acute kidney injury on top of chronic kidney disease stage III, ultrasound of renals and bladder did not show hydronephrosis or nephrolithiasis. Bilateral simple appearing renal cyst. History of hyperlipidemia Diabetes mellitus type 2 Coronary artery disease with previous PCI/stent to the LAD History of squamous cell laryngeal CA Severe chronic obstructive pulmonary disease, with an FEV1 36% of predicted at baseline, normally maintained on Trelegy maintenance inhaler Hypothyroidism Memory Disorder, on Aricept Plan: Patient's medications, labs, chest x-ray reviewed Currently on 2 L/min nasal cannula Start examination of DuoNebs, Symbicort inhaler, and IV Solu-Medrol Admission chest x-ray shows hyperinflation consistent with COPD. No focal infiltrates, pleural effusions, pneumothoraces. Follow-up chest x-ray shows interval development of bibasilar opacities and likely bilateral small pleural effusions. Patient previously empirically covered on Zosyn Blood cultures, sputum culture, Legionella culture pending Viral 4 Plex pending Procalcitonin level pending We will continue to follow, additional recommendations forthcoming I have personally seen and examined the patient, performed the documentation and the assessment and plan as written. Number of minutes spent on the visit:20 This is a joint evaluation that was done along with nurse practitioner. This evaluation was done and 33 minutes. Patient is known to have COPD. Presenting with worsening shortness of breath. His FEV1 is older at 76% predicted. He developed a right lower lobe consolidation consistent with pneumonia. His c urrent white cell count is at 10.2. Procalcitonin level is at 0.87 and a BUN is at 39 with a creatinine of 2.3. The patient was treated with IV Zosyn. Is currently on room air oxygen. Is on bronchodilators. Is on steroids. Reviewed the chest x-ray and there is a vague infiltration of the right lower lobe that needs to be further characterized by a CAT scan of the chest. Will order a noncontrast CT. Will continue same treatment for now. Will continue to follow. Time with Patient: Greater than 30
[2025-02-01 07:56] LABS: Influenza A Not Detected (Not Detectd); Influenza B Not Detected (Not Detectd); RSV Not Detected (Not Detectd)
[2025-02-01] MEDS: SYMBICORT 160-4.5 MCG INHALER INHALATION SCH (08:11)
[2025-02-01] MEDS: IPRATROPIUM-ALBUTEROL 3 ML NEB INHALATION SCH (08:11)
--- NOTE | 2025-02-01 08:37 | XR ---
EXAMINATION TYPE: XR chest 1V portable DATE OF EXAM: 02/01/2025 5:53 AM COMPARISON: 01/31/2025. Prior abdominal CT 10/09/2024 CLINICAL INDICATION: Male, 80 years old with history of pneumonia, , FINDINGS: Heart borderline in size. Hyperinflation. Mild diffuse interstitial density increased from prior. Pat donte left basilar opacity increased from prior. The right lower lung opacity is larger. 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 IMPRESSION: 1. COPD with increased interstitial density. Consider superimposed bronchitis or atypical pneumonias. Mild pulmonary vascular congestion is also a consideration. 2. New patchy left basilar opacity. 3. Enlarging opacity at the right lower lung, some of which corresponds to the patient's known Morgag ni hernia. [facility], , 02/01/2025 8:34 AM
[2025-02-01] MEDS: LEVOTHYROXINE 100 MCG TAB PO SCH (12:59)
[2025-02-01] MEDS: OXYBUTYNIN 10 MG TAB.ER.24 PO SCH (12:59)
--- NOTE | 2025-02-01 16:03 | P.NPCON ---
History of Present Illness - Reason for Consult chronic renal failure - History of Present Illness Patient is a 80-year-old male with history of type 2 diabetes, hypertension, COPD, chronic kidney disease stage IIIb with baseline creatinine 1.8 to 2 mg/dL. Patient is admitted to the hospital with complaints of cough, increased weakness and sore throat. Chest x-ray did not show any significant infiltrates. Currently being treated for COPD exacerbation. Serum creatinine was 2.3 on admission. Patient denies any urinary symptoms. No hypotension noted. Patient states he has been voiding. Past Medical History Past Medical History: Coronary Artery Disease (CAD), Cancer, Chest Pain / Angina, COPD, Diabetes Mellitus, Hyperlipidemia, Myocardial Infarction ([place]), Mus culoskeletal Disorder, Renal Disease, Thyroid Disorder Additional Past Medical History / Comment(s): HX OF ESOPHAGEAL CANCER WITH RADIATION [place](2014), TINNITIS., FELL OUT OF ATTIC JUL 2017 AND HAS COMPRESSION FX l-2 (WEARING BACK SUPPORT) ., HAYFEVER ALLERGIES., HAVING DIFFICULTY SWALLOWING SOME FOODS. Stage 4 Throat CA Last Myocardial Infarction Date:: 2001 History of Any Multi-Drug Resistant Organisms: None Reported Past Surgical History: Heart Catheterization With Stent Additional Past Surgical History / Comment(s): cyst removal from back, Toe surgery (child) Past Anesthesia/Blood Transfusion Reactions: No Reported Reaction, Motion Sickne ss Additional Past Anesthesia/Blood Transfusion Reaction / Comment(s): dizziness when he closes his eyes in the shower. Date of Last Stent Placement:: 2001 Past Psychological History: No Psychological Hx Reported Smoking Status: Former smoker Past Alcohol Use History: Occasional Additional Past Alcohol Use History / Comment(s): quit smoking 2001. smoked 1-2 ppd for 30-35 years. Past Drug Use History: None Reported - Past Family History Father Family Medical History: Hypertension Medications and Allergies Home Medications Medication Instructions Recorded Confirmed Type Atorvastatin [Lipitor] 80 mg PO DAILY 11/28/14 01/31/25 History Aspirin [Adult Low Dose Aspirin EC] 81 mg PO HS 08/14/17 01/31/25 History Cinnamon Bark [Cinnamon] 500 mg PO BID 08/11/19 01/31/25 History Ipratropium Nebulized [Atrovent 0.5 mg INHALATION RT-QID PRN 08/11/19 01/31/25 History Nebulized 0.2 MG/ML] Albuterol Inhaler [Ventolin Hfa 2 puff INHALATION RT-QID PRN 07/28/22 01/31/25 History Inhaler] Fluticasone/Umeclidin/Vilanter 1 puff INHALATION RT-DAILY 07/28/22 01/31/25 History [Trelejody Ellipta 100-62.5-25] sitaGLIPtin PHOS/metFORMIN HCL 1 tab PO BID-W/MEALS 07/28/22 01/31/25 History [Janumet 50-1,000 mg Tablet] Enalapril Maleate 2.5 mg PO DAILY 12/10/24 01/31/25 History Finasteride [Proscar] 5 mg PO DAILY 12/10/24 01/31/25 History Midodrine HCl [ProAmatine] 10 mg PO BID 12/10/24 01/31/25 History Montelukast [Singulair] 10 mg PO HS 12/10/24 01/31/25 History Oxybutynin ER [Ditropan XL] 10 mg PO DAILY 12/10/24 01/31/25 History Sertraline [Zoloft] 50 mg PO DAILY 12/10/24 01/31/25 History Sodium Bicarbonate Tab 650 mg PO DAILY 12/10/24 01/31/25 History Vit C/E/Zn/Coppr/Lutein/Zeaxan 1 cap PO BID 12/10/24 01/31/25 History [Preservision Areds 2 Softgel] Dapagliflozin Propanediol [Farxiga] 10 mg PO DAILY 01/31/25 01/31/25 History Donepezil [Aricept] 10 mg PO HS 01/31/25 01/31/25 History Levothyroxine Sodium [Synthroid] 100 mcg PO DAILY 01/31/25 01/31/25 History Lidocaine 5% Patch [Lidoderm] 1 patch TOPICAL DAILY PRN 01/31/25 01/31/25 History Mv-Min/Folic/K1/Lycopen/Lutein 1 tab PO DAILY 01/31/25 01/31/25 History [Centrum Silver Men Tablet] Allergies Allergy/AdvReac Type Severity Reaction Status Date / Time Sulfa (Sulfonamide Allergy Unknown Verified 01/31/25 19:14 Antibiotics) Childhood Physical Exam Vitals: Vital Signs Temp Pulse Pulse Resp BP BP Pulse Ox 02/01/25 15:33 72 02/01/25 15:19 70 02/01/25 15:10 18 02/01/25 14:25 97.6 F 101 H 126/73 95 02/01/25 12:30 72 02/01/25 12:18 74 02/01/25 11:08 97.6 F 55 L 137/75 99 02/01/25 08:26 70 02/01/25 08:11 74 97 02/01/25 08:00 97.2 F L 55 L 137/75 99 02/01/25 07:58 18 99 02/01/25 02:00 97.6 F 71 16 144/82 98 01/31/25 21:46 98.7 F 74 16 116/68 95 01/31/25 20:54 98.7 F 88 18 120/76 94 L 01/31/25 18:56 82 17 110/54 96 01/31/25 15:50 97.4 F L 78 20 125/88 92 L Intake and Output 02/01/25 02/01/25 02/01/25 06:59 14:59 22:59 Intake Total 750 Output Total 500 600 Balance -500 150 Intake: Intake, IV Titration 100 Amount Piperacillin-Tazobactam 3 100 .375 gm In Sodium Chloride 0.9% 100 ml @ 25 mls/hr IVPB Q8H [facility] Rx#: [id number] Oral 650 Output: Urine 500 600 Other: Voiding Method Toilet Urinal # Bowel Movements 0 Weight 99.79 kg Patient is awake, comfortable, no acute distress Examination of the heart S1 and S2 Examination of the lungs bilateral breath sounds were heard Occasional wheezing heard Abdomen is soft obese nontender Examination of lower extremities shows no significant edema [employer] exam grossly intact Results - Lab Results Most recent lab results Calcium 9.9 mg/dL (8.4-10.2) 01/31/25 16:06 Magnesium 2.1 mg/dL (1.6-2.3) 01/31/25 16:06 01/31/25 16:06 01/31/25 16:06 Assessment and Plan Assessment: 1. Chronic kidney disease stage IIIb with baseline creatinine 1.8 to 2 mg/dL likely secondary to nephrosclerosis with possible mild acute kidney injury mostly prerenal. 2. Acute exacerbation of COPD 3. Acute hypoxic respiratory failure 4. Type 2 diabetes Plan: Add IV fluids in a.m. if serum creatinine is higher. May resume Farxiga May resume LORNA inhibitor if renal function stays stable Repeat labs in a.m. Thank you for the consultation. Will continue to follow the patient with you during his hospitalization.
[2025-02-01] MEDS: ASPIRIN 81 MG PO SCH (20:15)
[2025-02-01] MEDS: MONTELUKAST 10 MG TAB PO SCH (20:15)
[2025-02-01] MEDS: DONEPEZIL 10 MG TAB PO SCH (20:15)
--- NOTE | 2025-02-01 20:39 | P.HPIM ---
History of Present Illness H&P Date: 02/01/25 Chief Complaint: Difficulty in breathing Patient is a 80-year-old male with a known history of coronary arteries with stent placement, esophageal cancer status post radiation in 2014, history of OR, hypertension, diabetes type 2, severe COPD, laryngeal cancer and prior history of smoking. Patient presents to ER with complaints of chest congestion, sore throat runny nose and headache for the past 4 to 5 days. There is also have increased shortness of breath. Cough with light green sputum production. Denied any fever or chills. Denied any leg swelling. Chest x-ray showed no acute cardiopulmonary process. COPD changes. Renal ultrasound showed no hydronephrosis or nephrolithiasis. Bilateral simple appearing renal cysts. No follow-up is recommended. EKG showed sinus rhythm with low QRS voltage in precordial leads. Laboratory showed WBC 10.2 hemoglobin 11.5 and platelets 141, sodium 141 potassium 5.3 chloride 104 bicarb is 27 BUN 39 and creatinine 2.32 and blood sugar 135 liver enzymes are elevated troponin x 1 negative. proBNP 1070 and procalcitonin level 0.87 Influenza A B RSV and COVID-19 PCR and Legionella are negative. Review of Systems Constitutional: Patient denies any fever or chills . No generalized weakness or weight loss. Abdomen: Patient denied nausea vomiting and diarrhea and abdominal pain. Cardiovascular: Patient denies any chest pain. Positive for short of breath no palpitations. No leg swelling. Respiratory: Cough with greenish sputum production and shortness of breath Neurologic: Patient denied any numbness or tingling. no headache. Musculoskeletal: Patient denies any complaints of joint swelling or deformity. Skin: Negative Psychiatric: Negative Endocrine: No heat or cold intolerance. No recent weight gain. Genitourinary: No dysuria or hematuria. All other 14 point ROS negative except the above Past Medical History Past Medical History: Coronary Artery Disease (CAD), Cancer, Chest Pain / Angina, COPD, Diabetes Mellitus, Hyperlipidemia, Myocardial Infarction (OR), Musculoskeletal Disorder, Renal Disease, Thyroid Disorder Additional Past Medical History / Comment(s): HX OF ESOPHAGEAL CANCER WITH RADIATION [place](2014), TINNITIS., FELL OUT OF ATTIC JUL 2017 AND HAS COMPRESSION FX l-2 (WEARING BACK SUPPORT) ., HAYFEVER ALLERGIES., HAVING DIFFICULTY SWALLOWING SOME FOODS. Stage 4 Throat CA Last Myocardial Infarction Date:: 2001 History of Any Multi-Drug Resistant Organisms: None Reported Past Surgical History: Heart Catheterization With Stent Additional Past Surgical History / Comment(s): cyst removal from back, Toe surgery (child) Past Anesthesia/Blood Transfusion Reactions: No Reported Reaction, Motion Sickness Additional Past Anesthesia/Blood Transfusion Reaction / Comment(s): dizziness when he closes his eyes in the shower. Date of Last Stent Placement:: 2001 Past Psychological History: No Psychological Hx Reported Smoking Status: Former smoker Past Alcohol Use History: Occasional Additional Past Alcohol Use History / Comment(s): quit smoking 2001. smoked 1-2 ppd for 30-35 years. Past Drug Use History: None Reported - Past Family History Father Family Medical History: Hypertension Medications and Allergies Home Medications Medication Instructions Recorded Confirmed Type Atorvastatin [Lipitor] 80 mg PO DAILY 11/28/14 01/31/25 History Aspirin [Adult Low Dose Aspirin EC] 81 mg PO HS 08/14/17 01/31/25 History Cinnamon Bark [Cinnamon] 500 mg PO BID 08/11/19 01/31/25 History Ipratropium Nebulized [Atrovent 0.5 mg INHALATION RT-QID PRN 08/11/19 01/31/25 History Nebulized 0.2 MG/ML] Albuterol Inhaler [Ventolin Hfa 2 puff INHALATION RT-QID PRN 07/28/22 01/31/25 History Inhaler] Fluticasone/Umeclidin/Vilanter 1 puff INHALATION RT-DAILY 07/28/22 01/31/25 History [Nicklejody Ellipta 100-62.5-25] sitaGLIPtin PHOS/metFORMIN HCL 1 tab PO BID-W/MEALS 07/28/22 01/31/25 History [Janumet 50-1,000 mg Tablet] Enalapril Maleate 2.5 mg PO DAILY 12/10/24 01/31/25 History Finasteride [Proscar] 5 mg PO DAILY 12/10/24 01/31/25 History Montelukast [Singulair] 10 mg PO HS 12/10/24 01/31/25 History Oxybutynin ER [Ditropan XL] 10 mg PO DAILY 12/10/24 01/31/25 History Sertraline [Zoloft] 50 mg PO DAILY 12/10/24 01/31/25 History Sodium Bicarbonate Tab 650 mg PO DAILY 12/10/24 01/31/25 History Vit C/E/Zn/Coppr/Lutein/Zeaxan 1 cap PO BID 12/10/24 01/31/25 History [Preservision Areds 2 Softgel] Dapagliflozin Propanediol [Farxiga] 10 mg PO DAILY 01/31/25 01/31/25 History Donepezil [Aricept] 10 mg PO HS 01/31/25 01/31/25 History Levothyroxine Sodium [Synthroid] 100 mcg PO DAILY 01/31/25 01/31/25 History Lidocaine 5% Patch [Lidoderm 5% 1 patch TOPICAL DAILY PRN 01/31/25 01/31/25 History Patch] Mv-Min/Folic/K1/Lycopen/Lutein 1 tab PO DAILY 01/31/25 01/31/25 History [Centrum Silver Men Tablet] predniSONE See Taper PO DIRECTED #30 tab 02/02/25 Rx Allergies Allergy/AdvReac Type Severity Reaction Status Date / Time Sulfa (Sulfonamide Allergy Unknown Verified 01/31/25 19:14 Antibiotics) Childhood Physical Exam Vitals: Vital Signs Temp Pulse Pulse Resp BP BP Pulse Ox 02/01/25 11:08 97.6 F 55 L 137/75 99 02/01/25 08:26 70 02/01/25 08:11 74 97 02/01/25 08:00 97.2 F L 55 L 137/75 99 02/01/25 07:58 18 99 02/01/25 02:00 97.6 F 71 16 144/82 98 01/31/25 21:46 98.7 F 74 16 116/68 95 01/31/25 20:54 98.7 F 88 18 120/76 94 L 01/31/25 18:56 82 17 110/54 96 01/31/25 15:50 97.4 F L 78 20 125/88 92 L Intake and Output 01/31/25 02/01/25 02/01/25 22:59 06:59 14:59 Output Total 200 500 Balance -200 -500 Output: Urine 200 500 Other: Voiding Method Urinal Weight 99.79 kg 99.79 kg PHYSICAL EXAMINATION: Patient is lying in the bed,, no acute distress, awake alert and oriented.. HEENT: Normocephalic. Neck is supple. Pupils reactive. Nostrils clear. Oral cavity is moist. Neck reveals no JVD, carotid bruits, or thyromegaly. CHEST EXAMINATION: Trachea is central. Symmetrical expansion. Mild expiratory wheezing no rhonchi or crackles. Nonlabored breathing. CARDIAC: Normal S1, S2 with no gallops. No murmurs ABDOMEN: Soft. Bowel sounds normal. No organomegaly. No abdominal bruits. Extremities: reveal no edema. No clubbing or cyanosis Neurologically awake, alert, oriented x x 1-2. Memory impairment. No gross focal deficits noted Skin: No rash or skin lesions. Psychiatric: Coperative. Nonsuicidal Musculoskeletal: No joint swelling or deformity. Normal range of motion. Results CBC & Chem 7: 02/02/25 06:43 02/02/25 06:43 Labs: Abnormal Lab Results - Last 24 Hours (Table) 01/31/25 01/31/25 02/01/25 Range/Units 16:06 16:06 06:36 WBC 10.24 H (4.50-10.00) 10*3/uL RBC 4.19 L (4.40-5.60) 10*6/uL Hgb 11.5 L (13.0-17.0) g/dL Hct 36.3 L (39.6-50.0) % MCHC 31.7 L (32.0-37.0) g/dL Neutrophils # 8.36 H (1.80-7.70) 10*3/uL Lymphocytes # 0.82 L (0.90-5.00) 10*3/uL Potassium 5.3 H (3.5-5.1) mmol/L BUN 39 H (9-20) mg/dL Creatinine 2.32 H (0.66-1.25) mg/dL Glucose 135 H (74-99) mg/dL Procalcitonin 0.87 H (0.02-0.50) ng/mL Thrombosis Risk Factor Assmnt - DVT/VTE Prophylaxis DVT/VTE Prophylaxis: Pharmacologic Prophylaxis ordered - Choose All That Apply Any of the Below Risk Factors Present?: Yes Each Factor Represents 1 point: Abnormal pulmonary function (COPD), Obesity (BMI >25), Swollen legs (current) Other Risk Factors: Yes Each Risk Factor Represents 3 Points: Age 75 years or older Other congenital or acquired thrombophilia - If yes, enter type in comment: No Thrombosis Risk Factor Assessment Total Risk Factor Score: 6 Thrombosis Risk Factor Assessment Level: High Risk Assessment and Plan Assessment: Acute COPD exacerbation Acute hypoxemic respiratory failure requiring 2 L oxygen via nasal cannula secondary to COPD Acute tracheobronchitis. No evidence of pneumonia on the CT chest. Pro-[place] is 0.87 Acute on chronic disease stage III. Creatinine 2.32 on admission baseline around 1.7 Coronary artery disease with history of stent placement History of laryngeal squamous cell cancer, Diabetes type 2 Hypothyroidism Hypertension Hyperlipidemia Prior history of smoking Memory impairment/dementia BPH DVT prophylaxis with heparin subcu Plan: Patient to be continued on oxygen supplementation. Continue with IV Solu-Medrol 60 mg Q6 hourly, DuoNebs and Symbicort. Follow-up renal function and encourage oral intake. Continue with home medications. On empiric antibiotics along with Zosyn. Pulmonary and nephrology is on board. Follow-up closely. Time with Patient: Greater than 30
--- NOTE | 2025-02-01 22:09 | CT ---
EXAMINATION TYPE: CT chest wo con DATE OF EXAM: 02/01/2025 9:15 PM COMPARISON: Same day chest radiograph. CLINICAL INDICATION: Male, 80 years old with history of RLL opacity; PHH, RLL OPACITY TECHNIQUE: Multiple axial images were obtained through the chest. Sagittal and coronal reformats were created for review. MIP was performed on a separate workstation. CT DLP: 451.4 mGycm, Automated exposure control for dose reduction was used. FINDINGS: LUNGS/ PLEURA: The lung parenchyma appears unremarkable. AIRWAY: Patent and unremarkable. HEART: Size within normal limits.Coronary artery calcifications. MEDIASTINUM: No gross evidence of adenopathy. VASCULATURE: No aortic aneurysm. MUSCULOSKELETAL: Age-indeterminate mild compression deformity the partially visualized upper lumbar s pine with Schmorl's node formation. Multilevel thoracolumbar spinal degenerative changes with diffuse anterior ossified formation. SOFT TISSUES/LYMPH NODES: Unremarkable. LOWER NECK: No significant findings. UPPER ABDOMEN: No significant acute findings. Simple appearing bilateral renal cysts. IMPRESSION: 1. No acute abnormality in the chest. 2. Specifically, acute pulmonary pathology or evidence of a right lower lobe abnormality. [facility], , 02/01/2025 10:07 PM
[2025-02-02 07:01] LABS: Glucose,Whole Blood 280 mg/dL (70-110)
[2025-02-02 07:43] LABS: Basophils # (A) 0.01 10*3/uL (0.00-0.10); Basophils % (A) 0.1 %; HCT 31.9 % (39.6-50.0); HGB 10.1 g/dL (13.0-17.0); Lymphocytes # (A) 0.62 10*3/uL (0.90-5.00); Lymphocytes % (A) 5.1 %; MCH 27.4 pg (27.0-32.0); MCHC 31.7 g/dL (32.0-37.0); MCV 86.7 fL (80.0-97.0); Mean Platelet Volume 11.7 fL (9.5-12.2); Monocytes # (A) 0.56 10*3/uL (0.20-1.00); Monocytes % (A) 4.6 %; Neutrophils # (A) 10.77 10*3/uL (1.80-7.70); Neutrophils % (A) 89.4 %; Platelet Count 139 10*3/uL (140-440); RBC 3.68 10*6/uL (4.40-5.60); RDW 14.8 % (11.5-14.5); WBC 12.06 10*3/uL (4.50-10.00)
[2025-02-02 08:00] LABS: African American GFR (CKD) 31 (>60 ml/min/1.73 sqM); Anion Gap 15 mmol/L; Blood Urea Nitrogen 56 mg/dL (9-20); Calcium 9.3 mg/dL (8.4-10.2); Carbon Dioxide 17 mmol/L (22-30); Chloride 103 mmol/L (98-107); Glucose 251 mg/dL (74-99); Non-African American GFR(CKD) 27 (>60 ml/min/1.73 sqM); Potassium 4.8 mmol/L (3.5-5.1); Sodium 135 mmol/L (137-145)
[2025-02-02] MEDS: FINASTERIDE 5 MG TAB PO SCH (08:45)
[2025-02-02] MEDS: ATORVASTATIN 80 MG TAB PO SCH (08:45)
[2025-02-02] MEDS: SERTRALINE 50 MG TAB PO SCH (08:45)
--- NOTE | 2025-02-02 13:54 | P.PN ---
Subjective Progress Note Date: 02/02/25 Patient seen in follow-up for CKD. Feeling well and no new complaints. Patient is awake, comfortable, no acute distress Examination of the heart S1 and S2 Examination of the lungs clear bilateral breath sounds Abdomen is soft obese nontender Examination of lower extremities shows no significant edema Objective - Vital Signs Vital signs: Vital Signs Temp 97.5 F L 02/02/25 07:00 Pulse 60 02/02/25 11:29 Resp 15 02/02/25 07:00 BP 139/91 02/02/25 07:00 Pulse Ox 96 02/02/25 08:15 FiO2 Intake & Output 02/01/25 02/02/25 02/02/25 18:59 06:59 18:59 Intake Total 750 118 Output Total 600 Balance 150 118 Intake: Intake, IV Titration 100 Amount Piperacillin-Tazobactam 3 100 .375 gm In Sodium Chloride 0.9% 100 ml @ 25 mls/hr IVPB Q8H KARINA Rx#: [id number] Oral 650 118 Output: Urine 600 Other: Voiding Method Toilet Toilet Toilet Urinal Urinal Urinal # Voids 1 # Bowel Movements 0 - Labs CBC & Chem 7: 02/02/25 06:43 02/02/25 06:43 Labs: Abnormal Lab Results - Last 24 Hours (Table) 02/02/25 02/02/25 02/02/25 Range/Units 06:43 06:43 06:59 WBC 12.06 H (4.50-10.00) 10*3/uL RBC 3.68 L (4.40-5.60) 10*6/uL Hgb 10.1 L (13.0-17.0) g/dL Hct 31.9 L (39.6-50.0) % MCHC 31.7 L (32.0-37.0) g/dL RDW 14.8 H (11.5-14.5) % Plt Count 139 L (140-440) 10*3/uL Immature Gran # 0.10 H (0.00-0.04) 10*3/uL Neutrophils # 10.77 H (1.80-7.70) 10*3/uL Lymphocytes # 0.62 L (0.90-5.00) 10*3/uL Eosinophils # 0.00 L (0.04-0.35) 10*3/uL Sodium 135 L (137-145) mmol/L Carbon Dioxide 17 L (22-30) mmol/L BUN 56 H (9-20) mg/dL Creatinine 2.24 H (0.66-1.25) mg/dL Glucose 251 H (74-99) mg/dL POC Glucose (mg/dL) 280 H (70-110) mg/dL Microbiology - Last 24 Hours (Table) 01/31/25 21:08 Gram Stain - Preliminary Sputum Sputum Culture - Preliminary 01/31/25 20:57 Blood Culture - Preliminary Blood Assessment and Plan Assessment: 1. Chronic kidney disease stage IIIb with baseline creatinine 1.8-2.0 mg/dL likely secondary to nephrosclerosis with possible mild acute kidney injury mostly prerenal. 2. Acute exacerbation of COPD 3. Acute hypoxic respiratory failure 4. Type 2 diabetes Plan: Renal functions table near baseline level May resume Farxiga and ACEi Clear for discharge
[2025-02-02 15:03] VITALS: BP 127/69; RESP 17; TEMP 97.7
[2025-02-02 15:48] VITALS: PULSE 62
--- NOTE | 2025-02-02 21:24 | P.PN ---
Subjective Progress Note Date: 02/02/25 Patient is a 80-year-old male with past medical history significant for COPD, hyperlipidemia, diabetes mellitus, hypothyroidism, chronic kidney disease stage III, laryngeal cancer, CAD with previous PCI/stent. Patient does follow in the pulmonary office with Dr. Neville for management of his severe COPD. He has an FEV1 36% predicted at baseline. Normally, maintained on Trelegy maintenance inhaler. Told to come to the emergency department yesterday by his primary care provider Dr. Barrientos. Over the last 4 to 5 days patient has had headache, runny nose, sore throat and chest congestion. Followed by increased work of breathing. Cough was previously productive with light green phlegm and now is nonproductive. Continues to have cough and wheezing. Also, outpatient labs concerning for worsening acute on chronic kidney disease. Workup at the emergency department including a chest x-ray which did not show any acute cardiopulmonary process. There was hyperinflation and flattening of the cliff phragm consistent with COPD. No ultrasound did not show any hydronephrosis or nephrolithiasis. Bilateral simple appearing renal cyst. Labs including CBC with a WBC count of 10.24, hemoglobin 11.5, platelets 141. CMP: Sodium 141, potassium 5.3, chloride 104, serum bicarb 27, BUN 39, creatinine 2.32, glucose 135. Troponin less than 0.012. NT proBNP 1070. EKG: Sinus rhythm, rate 76 bpm, RBBB pattern. Patient currently being evaluated in the observation unit. He is resting comfortably on 2 L/min nasal cannula. Denies home O2 use. Endorses above-mentioned symptoms. Continues to have congested cough which is mostly nonproductive. Denies any hemoptysis. Denies any fevers or chills. Den ies any chest pain, heart palpitations, lower extremity edema. Previously loaded with 10 mg of IV Decadron. Also given multiple breathing treatments in the ED. Current vital signs: Temperature 97.6 F, heart rate 71 bpm, blood pressure 144/82 mmHg, nontachypneic, on 2 L/min nasal cannula, SpO2 reading 98% On 02/02/2025, the patient is feeling better, less bronchospastic and wheezy compared to yesterday. In regards to the right lower lobe findings, I ordered a CAT scan of the chest and review of the CAT scan shows no evidence of any airspace disease or consolidation or any other significant abnormalities in the right lower lobe. No evidence of any tumors or lesions. The patient is curr ently on room air oxygen. Feeling better. White cell count of 12 with a hemoglobin 10.1 and a platelet count of 139. BUN is 56 with a creatinine of 2.2. Sodium levels at 135 and a potassium level is at 4.8. Doing well and interested in being released home. Remains volume Objective - Vital Signs Vital signs: Vital Signs Temp 97.7 F 02/02/25 15:00 Pulse 62 02/02/25 15:47 Resp 17 02/02/25 15:00 BP 127/69 02/02/25 15:00 Pulse Ox 96 02/02/25 15:00 FiO2 Intake & Output 02/02/25 02/02/25 02/03/25 06:59 18:59 06:59 Intake Total 936 Balance 936 Intake: Oral 936 Other: Voiding Method Toilet Toilet Urinal Urinal # Voids 1 3 - Exam GENERAL EXAM: Alert, 80-year-old male, comfortable in no apparent distress. HEAD: Normocephalic and atraumatic EYES: Normal reaction of pupils, equal size. NOSE: Clear with pink turbinates. THROAT: No erythema or exudates. NECK: No masses, no JVD. CHEST: No chest wall deformity. LUNGS: Equal air entry with bilateral expiratory wheezing and scattered rhonchi. No conversational dyspnea or accessory muscle use.. CVS: S1 and S2 normal with no audible murmur, regular rhythm. No extra heart sounds ABDOMEN: No hepatosplenomegaly, active bowel sounds, no guarding or rigidity. SPINE: No scoliosis or deformity SKIN: No rashes CENTRAL NERVOUS SYSTEM: No focal deficits, tone is normal in all 4 extremities. EXTREMITIES: There is mild bilateral lower extremity pitting edema. No clubbing or cyanosis. Peripheral pulses are intact. - Labs CBC & Chem 7: 02/02/25 06:43 02/02/25 06:43 Labs: Abnormal Lab Results - Last 24 Hours (Table) 02/02/25 02/02/25 02/02/25 Range/Units 06:43 06:43 06:59 WBC 12.06 H (4.50-10.00) 10*3/uL RBC 3.68 L (4.40-5.60) 10*6/uL Hgb 10.1 L (13.0-17.0) g/dL Hct 31.9 L (39.6-50.0) % MCHC 31.7 L (32.0-37.0) g/dL RDW 14.8 H (11.5-14.5) % Plt Count 139 L (140-440) 10*3/uL Immature Gran # 0.10 H (0.00-0.04) 10*3/uL Neutrophils # 10.77 H (1.80-7.70) 10*3/uL Lymphocytes # 0.62 L (0.90-5.00) 10*3/uL Eosinophils # 0.00 L (0.04-0.35) 10*3/uL Sodium 135 L (137-145) mmol/L Carbon Dioxide 17 L (22-30) mmol/L BUN 56 H (9-20) mg/dL Creatinine 2.24 H (0.66-1.25) mg/dL Glucose 251 H (74-99) mg/dL POC Glucose (mg/dL) 280 H (70-110) mg/dL Microbiology - Last 24 Hours (Table) 01/31/25 21:08 Gram Stain - Preliminary Sputum Sputum Culture - Preliminary 01/31/25 20:57 Blood Culture - Preliminary Blood Assessment and Plan Assessment: Acute COPD exacerbation, improved Acute hypoxemic respiratory failure, currently on room air oxygen Acute kidney injury on top of chronic kidney disease stage III, ultrasound of renals and bladder did not show hydronephrosis or nephrolithiasis. Bilateral simple appearing renal cyst. History of hyperlipidemia Diabetes mellitus type 2 Coronary artery disease with previous PCI/stent to the LAD History of squamous cell laryngeal CA Severe chronic obstructive pulmonary disease, with an FEV1 36% of predicted at baseline, normally maintained on Trelegy maintenance inhaler Hypothyroidism Memory Disorder, on Aricept Plan: CAT scan of the chest showed no acute abnormalities other than COPD. No no airspace disease. No malignancy. Blood cultures, sputum culture, Legionella culture negative Viral 4 Plex negative Procalcitonin level normal Will discharge home on Trelegy Ellipta 1 puff a day and a prednisone burst taper to be followed by an outpatient basis.
== END 2025-02-02 18:08 | disposition home health service (06) ==
LOC: EC 15:22 → 1SOBS 19:50 → 6NMEDSUR 02-01 17:54
PROVIDERS: ADMIT Hospitalist; ATTEND Hospitalist
DX: J44.1 Chronic obstructive pulmonary disease with (acute) exacerbation (principal); J44.0 Chronic obstructive pulmonary disease with (acute) lower respiratory infection; J20.9 Acute bronchitis, unspecified; J18.9 Pneumonia, unspecified organism; J96.01 Acute respiratory failure with hypoxia; N17.9 Acute kidney failure, unspecified; I12.9 Hypertensive chronic kidney disease with stage 1 through stage 4 chronic kidney disease, or unspecified chronic kidney disease; N18.32 Chronic kidney disease, stage 3b; E11.22 Type 2 diabetes mellitus with diabetic chronic kidney disease; I25.10 Atherosclerotic heart disease of native coronary artery without angina pectoris; E78.5 Hyperlipidemia, unspecified; E03.9 Hypothyroidism, unspecified; N28.1 Cyst of kidney, acquired; F03.90 Unspecified dementia, unspecified severity, without behavioral disturbance, psychotic disturbance, mood disturbance, and anxiety; N40.0 Benign prostatic hyperplasia without lower urinary tract symptoms; I25.2 Old myocardial infarction; Z85.01 Personal history of malignant neoplasm of esophagus; Z85.21 Personal history of malignant neoplasm of larynx; Z85.819 Personal history of malignant neoplasm of unspecified site of lip, oral cavity, and pharynx; Z87.891 Personal history of nicotine dependence; Z92.3 Personal history of irradiation; Z95.5 Presence of coronary angioplasty implant and graft; Z79.51 Long term (current) use of inhaled steroids; Z79.82 Long term (current) use of aspirin; Z79.84 Long term (current) use of oral hypoglycemic drugs; Z79.890 Hormone replacement therapy; Z79.899 Other long term (current) drug therapy; Z88.2 Allergy status to sulfonamides
CPT/HCPCS: 96376 ×2; 96366 ×4; 96372 ×3; 96375 ×2; 96365; 99285; 36415; 94640 ×4; 94760; 93005; 83880; 80053; 80048; 87449; 83605; 83735; 84484; 85025 ×2; 85610; 85730; 87040; 87070; 87205; 84145; 87636; 71045; 71046; 76770; 71250; G0378 ×3; S0138; J2543 ×3; J1644 ×3; J1100; J2919 ×2